=== PATIENT | female | born 1985 | race Caucasian/White ===

== ENCOUNTER 2019-11-19 05:45 | Emergency (ER) | payer SELFPAY ==
[2019-11-19] VITALS (10 sets, daily range): BP systolic 85–139; BP diastolic 56–77; PULSE 80–134; RESP 16–35; TEMP 37.1; O2SAT 93–100; BMI 27.4
--- NOTE | 2019-11-19 05:50 | XR_ITS ---
WS: [id number] Portable AP upright chest, 11/19/2019 Clinical Data: dyspnea Comparison: PA and lateral chest, 09/13/2019. Findings: No nodules, masses or effusions are seen. The heart is normal. The pulmonary vascularity is not increased. No pneumonia or pneumothorax is seen. XR/XR chest 1V portable [id number] Impression: Negative chest.
--- NOTE | 2019-11-19 05:52 | ED_ITS ---
HPI - Asthma General: Chief Complaint: Asthma Stated Complaint: asthma attack Time Seen by Provider: 11/19/19 05:49 History of Present Illness: HPI Narrative: 34-year-old female presents emergency room with acute dyspnea and audible wheezing. Patient reports she ran out of albuterol for the last month she has been using 5-6 treatments per day she last had a treatment about 3 hours prior to presentation. She denies fever sweats or chills patient is tearful and conversationally dyspneic. Associated symptoms: Reports non-productive cough; Deny chest pain, fever(s), productive cough or syncope Review of Systems Const: Denies: fever, chills, body aches, fatigue, malaise or night sweats Eyes: Denies: change in vision or blurry vision ENMT: Denies: throat pain, oral sores/lesions, dental pain, nasal discharge or nasal congestion Card: Denies: chest pain, palpitations, irregular heart rhythm, edema, synco pe, shortness of breath on exertion, shortness of breath when lying down or leg pain with exertion Resp: Reports: shortness of breath, non-productive cough and wheezing; Denies: productive cough GI: Denies: abdominal pain, nausea, vomiting, vomiting blood, coffee grounds in vomit, difficulty swallowing, heartburn/indigestion, diarrhea, constipation, cramping, blood in stool or black tarry stool : Denies: flank pain, painful urination, urinary frequency, urinary urgency, urinary incontinence or blood in urine Musc: Denies: neck pain, back pain, extremity pain, extremity swelling, joint pain or joint swelling Skin/Breast: Denies: rash, itching or redness Neuro: Denies: headache, numbness in extremities, weakness in extremities, changes in sensation, lack of coordination, difficulty walking, frequent falls, dizziness, vertigo or confusion Psych: Reports: anxiety; Denies: depression, loss of interest, visual hallucinations, auditory hallucinations, suicidal ideation or homicidal ideation Endo: Denies: excessive urination, excessive thirst, tired all the time or cold intolerance Fabio/Lymph: Denies: easy bruising, easy bleeding, petechiae, enlarged lymph nodes or tender lymph nodes PFSH ED PFSH: Statuses (acute, chronic, etc) shown below reflect problem list status as previously entered and may not be historically accurate Social History Smoking and tobacco status: former smoker Female Reproductive History: Date of last menstrual period: 11/04/19 Physical Exam Const: COMMON NORMALS: average body habitus, oriented x3 and alert GENERAL APPEARANCE: cooperative, comfortable, well kempt and well developed NUTRITIO NAL APPEARANCE: obese ORIENTATION/CONSCIOUSNESS: Yes awake, Yes oriented to person and Yes oriented to place HENMT: COMMON NORMALS: normocephalic, head/scalp atraumatic, EAC's normal, TM's normal bilaterally, external nose normal, moist oral mucous membranes and oropharynx normal HEAD & SCALP: normocephalic and atraumatic NOSE: external nose normal EXTERNAL AUDITORY CANAL: EAC's normal TYMPANIC MEMBRANE: TM's normal bilaterally MOUTH: oral and palatal mucosa normal, lip normal and tongue normal THROAT: posterior oropharynx normal and tonsils normal Eye: COMMON NORMALS: PERRL, EOMs intact bilaterally, conjunctivae normal and no scleral icterus CONJUNCTIVA: Yes conjunctivae normal PUPIL: Yes PERRL Neck/C-Spine: COMMON NORMALS: full ROM, no lymphadenopathy, supple, no meningeal signs and thyroid normal THYROID: thyroid normal and asymmetrical Lymph: LYMPHATIC: no lymphadenopathy noted Resp: EFFORT & INSPECTION: No able to speak in complete sentences, Yes tachypneic, Yes respiratory distress, Yes grunting and Yes audible wheezes AUSCULTATION: wheezes throughout Cardio: COMMON NORMALS: regular rhythm RATE: tachycardic RHYTHM: regular rhythm HEART SOUNDS: no murmurs GI: COMMON NORMALS: normal to inspection, nondistended, normoactive bowel sounds, soft to palpation and no hepatosplenomegaly PALPATION: Yes soft and Yes no hepatosplenomegaly : COMMON NORMALS: Yes no CVA tenderness BLADDER/KIDNEY EXAM: Yes no CVA tenderness Back/Pelvis: COMMON NORMALS: no CVA tenderness LUMBAR SPINE/LOWER BACK: Yes normal to inspection Extremity: COMMON NORMALS: no clubbing, cyanosis or edema, no calf tenderness and no pedal edema Neuro: COMMON NORMALS: oriented x3 SENSORIUM/ORIENTATION: Yes alert, Yes oriented to person and Yes oriented to place MENINGEAL SIGNS: Yes no meningeal signs Psych: APPEARANCE: Yes well kempt Skin: COMMON NORMALS: no rashes or lesions noted and skin turgor normal GENERAL SKIN EXAM: no rashes or lesions noted and turgor normal Course ED course: Improved with initial treatment in the emergency room we will go ahead and discharge patient home follow-up with primary care doctor in the next few days return if has problems. Did review with the patient that by enlarge she was hyperventilating was causing the worst her symptoms I do think though that her asthma did precipitate the hyperventilation reviewed this with her. Vital Signs: Vital signs: Vital Signs Temperature 98.8 F 11/19/19 06:01 Pulse Rate 85 11/19/19 08:17 Respiratory Rate 16 11/19/19 07:46 Blood Pressure 113/74 11/19/19 07:46 Pulse Oximetry 100 11/19/19 07:46 MDM - Asthma Lab Data: Labs: Lab Results 11/19/19 11/19/19 11/19/19 Range/Units 05:52 05:52 05:53 WBC 8.5 (4.0-10.0) 10^3/ uL RBC 4.60 (4.1-5.3) 10^6/u L Hgb 14.6 (11.5-15.3) g/dL Hct 42.2 (37.0-47.0) % MCV 91.7 (81-99) fL MCH 31.7 (28.0-34.0) pg MCHC 34.6 (30.0-36.0) g/dL RDW 12.4 (12.1-15.1) % Plt Count 277 (130-400) 10^3/c mm MPV 9.9 (7.4-10.4) fL Neut % (Auto) 27.3 % Lymph % (Auto) 59.6 % [place] % (Auto) 6.7 % Eos % (Auto) 5.9 % Baso % (Auto) 0.4 % Neut # (Auto) 2.3 (1.8-7.7) 10^3/u L Lymph # (Auto) 5.1 H (0.8-4.8) 10^3/u L [place] # (Auto) 0.6 (0.2-0.9) 10^3/u L Eos # (Auto) 0.5 (0.0-0.8) 10^3/u L Baso # (Auto) 0.0 (0.0-0.1) 10^3/u L Nucleated RBC % (a uto) 0 % Nucleated RBCs # 0.0 /100WBC Specimen Type Arterial Sample Site Radial, right ABG pH 7.41 (7.35-7.45) ABG pCO2 32.1 L (35-45) mmHg ABG pO2 165.0 H* (80.0-100.0) mmH g ABG HCO3 20.4 L (22-26) mmol/L ABG Base Excess -3.3 L (-2.0-2.0) mmol/ L Kendall Test Pos Hematocrit 41.8 (37-47) % Hgb O2 Saturation 98.5 (95-100) % Carboxyhemoglobin 0.7 (0.4-20.1) %THgb Methemoglobin 0.6 (0.4-1.5) % Total Hemoglobin 13.6 (12-16) g/dL Ionized Calcium 1.2 (1.1-1.4) mmol/L O2 Liters/Min 5.0 % Installation & Maintenance Executive ID [email or web address] Sodium 138 139.0 (136-145) mmol/L Potassium 3.6 4.0 (3.5-5.1) mmol/L Chloride 101 (98-107) mmol/L Carbon Dioxide 21 L (22-29) mmol/L Anion Gap 19.6 H (5-19) BUN 18 (6-20) mg/dL Creatinine 0.7 (0.5-0.9) mg/dL GFR Calculation 95.8 (90-130) mL/min Glucose 149 H 126.0 H (74-109) mg/dL Calcium 10.2 H (8.6-10.0) mg/Dl Total Bilirubin 0.7 (0.15-1.2) mg/dL AST 18 (0-32) U/L ALT 18 (0-33) U/L Alkaline Phosphata se 60 (35-105) IU/L Total Protein 7.6 (6.6-8.7) g/dL Albumin 5.7 H (3.5-5.2) g/dL Globulin 1.9 (1.3-4.6) g/dL Influenza Type A A g (Negative) POC Influenza B Ag (Negative) 11/19/19 Range/Units 06:06 WBC (4.0-10.0) 10^3/ uL RBC (4.1-5.3) 10^6/u L Hgb (11.5-15.3) g/dL Hct (37.0-47.0) % MCV (81-99) fL MCH (28.0-34.0) pg MCHC (30.0-36.0) g/dL RDW (12.1-15.1) % Plt Count (130-400) 10^3/c mm MPV (7.4-10.4) fL Neut % (Auto) % Lymph % (Auto) % [place] % (Auto) % Eos % (Auto) % Baso % (Auto) % Neut # (Auto) (1.8-7.7) 10^3/u L Lymph # (Auto) (0.8-4.8) 10^3/u L [place] # (Auto) (0.2-0.9) 10^3/u L Eos # (Auto) (0.0-0.8) 10^3/u L Baso # (Auto) (0.0-0.1) 10^3/u L Nucleated RBC % (a uto) % Nucleated RBCs # /100WBC Specimen Type Sample Site ABG pH (7.35-7.45) ABG pCO2 (35-45) mmHg ABG pO2 (80.0-100.0) mmH g ABG HCO3 (22-26) mmol/L ABG Base Excess (-2.0-2.0) mmol/ L Kendall Test Hematocrit (37-47) % Hgb O2 Saturation (95-100) % Carboxyhemoglobin (0.4-20.1) %THgb Methemoglobin (0.4-1.5) % Total Hemoglobin (12-16) g/dL Ionized Calcium (1.1-1.4) mmol/L O2 Liters/Min % Installation & Maintenance Executive ID Sodium (136-145) mmol/L Potassium (3.5-5.1) mmol/L Chloride (98-107) mmol/L Carbon Dioxide (22-29) mmol/L Anion Gap (5-19) BUN (6-20) mg/dL Creatinine (0.5-0.9) mg/dL GFR Calculation (90-130) mL/min Glucose (74-109) mg/dL Calcium (8.6-10.0) mg/Dl Total Bilirubin (0.15-1.2) mg/dL AST (0-32) U/L ALT (0-33) U/L Alkaline Phosphata se (35-105) IU/L Total Protein (6.6-8.7) g/dL Albumin (3.5-5.2) g/dL Globulin (1.3-4.6) g/dL Influenza Type A A g Negative (Negative) POC Influenza B Ag Negative (Negative) Imaging Data^: CXR: Attestation: I personally reviewed and interpreted this imaging study as follows: My impression: Mild hyperexpansion normal mediastinum normal cardiac silhouette no acute infiltrates no effusions. ABG Data^: ABG Interpretation 1: ABG results: Mild respiratory alkalosis due to hyperventilation Discharge Plan Discharge Patient Disposition: Home, Self-Care Clinical Impression: Asthma with acute exacerbation Qualifiers: Asthma severity: moderate Asthma persistence: persistent Qualified Code(s): J45.41 - Moderate persistent asthma with (acute) exacerbation Condition: Stable Prescriptions: New prednisone 20 mg tablet 20 mg PO BID 5 Days Qty: 10 RF: 0 Advair Diskus 250-50 mcg/dose blister with device 1 inh INHALATION BID Qty: 60 RF: 1 albuterol sulfate 90 mcg/actuation HFA aerosol inhaler 2 inh INHALATION Q4H PRN (Reason: shortness of breath or wheezing) Qty: 18 RF: 1 Discharge Orders: Discharge Order (Routine); Ordered 11/19/19 Ordered By: Ronald Peterson Referrals: Michelle Hanna MD [Physician] - 4-7 days (asthma) Discharge Diet: Usual diet Discharge Activity: Increase activity as tolerated Discharge Date/Time: 11/19/19 07:47 Coding Level of Care Code ED Steam Tank Operator for Chg Fwd Exam Problem Focused
[2019-11-19] MEDS: magnesium sulfate premix 2 GM/50 ML PIGGYBACK IV (05:53)
[2019-11-19] MEDS: sodium chloride 0.9% 1,000 ML 999 ML IV (05:53)
[2019-11-19 06:03] LABS: Basophils % 0.4 %; Eosinophils # 0.5 10^3/uL (0.0-0.8); Eosinophils % 5.9 %; Hematocrit 42.2 % (37.0-47.0); Hemoglobin 14.6 g/dL (11.5-15.3); Lymphocytes # 5.1 10^3/uL (0.8-4.8); Lymphocytes % 59.6 %; Mean Corpuscular HGB Conc 34.6 g/dL (30.0-36.0); Mean Corpuscular Hemoglobin 31.7 pg (28.0-34.0); Mean Corpuscular Volume 91.7 fL (81-99); Mean Platelet Volume 9.9 fL (7.4-10.4); Monocytes # 0.6 10^3/uL (0.2-0.9); Monocytes % 6.7 %; Neutrophils # 2.3 10^3/uL (1.8-7.7); Neutrophils % 27.3 %; Nucleated Red Blood Cells % 0 %; Platelet Count 277 10^3/cmm (130-400); Red Cell Distribution Width 12.4 % (12.1-15.1); White Blood Count 8.5 10^3/uL (4.0-10.0)
[2019-11-19 06:04] LABS: ABG PCO2 32.1 mmHg (35-45); ABG PH Result 7.41 (7.35-7.45); Arterial Blood Gas Hematocrit 41.8 % (37-47); Base Excess ABG -3.3 mmol/L (-2.0-2.0); Blood Gas Allen Test Pos; Blood Gas Sample Site Radial, right; Blood Gas Sample Type Arterial; Carboxyhemoglobin 0.7 %THgb (0.4-20.1); HCO3 ABG 20.4 mmol/L (22-26); HGB O2 Sat 98.5 % (95-100); Ionized Calcium Level - ABG 1.2 mmol/L (1.1-1.4); Methemoglobin 0.6 % (0.4-1.5); Total Hemoglobin 13.6 g/dL (12-16)
[2019-11-19 06:18] LABS: Alanine Aminotransferase 18 U/L (0-33); Albumin Level 5.7 g/dL (3.5-5.2); Alkaline Phosphatase 60 IU/L (35-105); Anion Gap 19.6 (5-19); Aspartate Amino Transferase 18 U/L (0-32); Blood Urea Nitrogen 18 mg/dL (6-20); Calcium 10.2 mg/Dl (8.6-10.0); Carbon Dioxide 21 mmol/L (22-29); Chloride 101 mmol/L (98-107); Globulin 1.9 g/dL (1.3-4.6); Glomerular Filtration Rate 95.8 mL/min (90-130); Glucose 149 mg/dL (74-109); Potassium 3.6 mmol/L (3.5-5.1); Sodium 138 mmol/L (136-145); Total Bilirubin 0.7 mg/dL (0.15-1.2); Total Protein 7.6 g/dL (6.6-8.7)
[2019-11-19] MEDS: budesonide 0.5 mg/2 mL Neb INHALATION (06:21)
[2019-11-19 06:41] LABS: Influenza A by IFA Negative (Negative); Influenza B by IFA Negative (Negative)
--- NOTE | 2019-11-19 14:16 | DCPLANNER ---
Addendum entered by Jocelyne Bender 11/19/19 14:33: Patient did call case management manager back, stated that she does not have insurance at this time. deli manager mailed patient both of the financial representative applications for the hospital to fill out and turn back in. Patient stated that she would wait and fill out applications to see where she is on the slide before scheduling an appointment with a primary care. deli manager also mailed patient lining caser business card, so if case management manager could help patient in the future. Original Note: deli manager was asked to schedule a follow up appointment for patient with a primary care physician and at [facility]. deli manager called [facility], spoke with Mamie, a follow up appointment is scheduled for Sunday, December 08, 2019 at 1:[address] Hanna. deli manager called patient to speak with patient about getting established with a primary care physician. deli manager was unable to speak with patient at this time, a message was left with a friend to return lining caser phone call.
[2019-11-26 18:32] LABS: Oxygen Device NC
--- NOTE | 2019-12-10 14:26 | DCPLANNER ---
Patient did not attend appointment scheduled for 12.08.19 with [facility].
== END 2019-11-19 07:47 | disposition home or self-care (01) ==
PROVIDERS: Emergency Provider Family Medicine
DX: J45.41 Moderate persistent asthma with (acute) exacerbation (principal); Z87.891 Personal history of nicotine dependence
CPT/HCPCS: 36415; 36600; 71045; 80051; 80053; 82810; 83986; 85025; 87804; 94640; 96360; 96365; 96374; 96375; 99282; J2930; J3475; J7030; J7611; J7626

== ENCOUNTER 2020-04-22 03:06 | Emergency (ER) | payer SELFPAY ==
[2020-04-22] VITALS (14 sets, daily range): BP systolic 111–158; BP diastolic 52–78; PULSE 88–129; RESP 16–28; O2SAT 88–99
--- NOTE | 2020-04-22 03:13 | XR_ITS ---
WS: [id number] PORTABLE CHEST HISTORY: Shortness of breath COMPARISON: 11/19/2019 Lungs are clear and well expanded. No pleural effusion or pneumothorax. Cardiac size: Normal. Mediastinum/Aorta: Normal mediastinum. No osseous abnormality seen. XR/XR chest 1V portable [id number] IMPRESSION: Unremarkable portable chest.
--- NOTE | 2020-04-22 03:17 | W.ED.ASTHMA ---
HPI - Asthma General: Chief Complaint: Asthma Stated Complaint: sob; asthma attack Time Seen by Provider: 04/22/20 03:10 History of Present Illness: HPI Narrative: Yuly is a 34-year-old female who comes in having an asthma attack. History is very limited as the patient is severely short of breath. She states she is used her albuterol several times at home. At this time no further history is obtainable as the patient is in severe distress and necessitates intensive management. Review of Systems General: Reports: ROS unobtainable due to medical condition PFSH ED PFSH: Medical History Asthma Social History Smoking and tobacco status: never smoked Female Reproductive History: Date of last menstrual period: 11/04/19 Physical Exam Const: GENERAL APPEARANCE: in distress and anxious HENMT: COMMON NORMALS: normocephalic, atraumatic, external ears normal, EAC's normal and Normal external nose present HEAD & SCALP: normal to inspection, normocephalic and atraumatic FACE & SINUS: normal facial exam and face symmetric NOSE: Normal external nose present and Normal nares present EXTERNAL EAR: Yes external ears normal EXTERNAL AUDITORY CANAL: EAC's normal MOUTH: Normal oral and palatal mucosa present, lip normal and tongue normal Eye: COMMON NORMALS: Equal, round and reactive pupils present and conjunctivae normal GENERAL EYE: appearance normal, both eyes and all related structures ALIGNMENT: Yes alignment normal PERIORBITAL: periorbital findings normal EYELID: eyelids normal CONJUNCTIVA: Yes conjunctivae normal SCLERA: sclerae normal PUPIL: Yes Equal, round and reactive pupils present Neck/C-Spine: COMMON NORMALS: full ROM, no lymphadenopathy, supple, no meningeal signs and no JVD GENERAL: Yes normal visual inspection and Yes trachea midline Chest: COMMONS NORMALS: normal inspection of the chest and normal palpation of entire chest wall Resp: EFFORT & INSPECTION: Yes tachypneic, Yes respiratory distress, Yes Actively coughing, Yes uses accessory muscles and Yes audible wheezes AUSCULTATION: rhonchi and wheezes Cardio: COMMON NORMALS: no JVD, regular rhythm, S1 normal heart sound present and S2 normal heart sound present RATE: tachycardic RHYTHM: regular rhythm HEART SOUNDS: S1 normal heart sound present, S2 normal heart sound present, no click, no gallops, no murmurs, no rubs and abnormal split S2 GI: COMMON NORMALS: Soft to palpation and No hepatosplenomegaly present PALPATION: Yes Soft to palpation, No Tenderness to palpation present (GI), No Guarding due to palpation present (GI), No Rigid due to palpation, Yes No hepatosplenomegaly present, No Hernia present, No Palpable mass present and No Pulsatile mass present : COMMON NORMALS: Yes no CVA tenderness BLADDER/KIDNEY EXAM: Yes no CVA tenderness EXTERNAL FEMALE EXAM: No Hernia present Back/Pelvis: COMMON NORMALS: no CVA tenderness, thoracic and lumbar spine normal to inspection, no thoracic nor lumbar tenderness and thoraco-lumbar ROM normal Extremity: COMMON NORMALS: normal to inspection, full ROM, capillary refill normal, no joint enlargement, no clubbing, cyanosis or edema and no calf tenderness Neuro: COMMON NORMALS: CN's II-XII intact bilaterally, moves all extremities, no focal motor deficits and no sensory deficits noted MENINGEAL SIGNS: Yes no meningeal signs SPEECH: speech normal Psych: COMMON NORMALS: mental status grossly normal, Normal thought process present, cooperative, normal affect, speech normal and activity/motor behavior normal SPEECH: Yes normal speech THOUGHT PROCESS: Normal thought process present Skin: COMMON NORMALS: no rashes or lesions noted, turgor normal, no jaundice, no petechiae and no mottling GENERAL SKIN EXAM: no rashes or lesions noted and turgor normal Course Vital Signs: Vital signs: Vital Signs Pulse Rate 106 H 04/22/20 05:27 Respiratory Rate 20 H 04/22/20 05:24 Blood Pressure 125/66 04/22/20 05:00 Pulse Oximetry 97 04/22/20 05:24 MDM - Asthma MDM Narrative: Medical decision making narrative: Ms. Riojas is feeling better at this time. Her wheezing has subsided. She is not on any supplemental oxygen. There is no more respiratory distress. She is requesting to go home. She agrees to return should her symptoms change or worsen but at this time she is feeling better ready for discharge. Lab Data: Attestation: I reviewed the patient's lab results. Labs: Lab Results 04/22/20 04/22/20 Range/Units 03:20 03:20 WBC 7.3 (4.0-10.0) 10^3/ uL RBC 4.24 (4.1-5.3) 10^6/u L Hgb 13.4 (11.5-15.3) g/dL Hct 40.6 (37.0-47.0) % MCV 95.8 (81-99) fL MCH 31.6 (28.0-34.0) pg MCHC 33.0 (30.0-36.0) g/dL RDW 12.8 (12.1-15.1) % Plt Count 248 (130-400) 10^3/c mm MPV 10.0 (7.4-10.4) fL Neut % (Auto) 39.6 % Lymph % (Auto) 44.8 % [place] % (Auto) 6.0 % Eos % (Auto) 9.0 % Baso % (Auto) 0.5 % Neut # (Auto) 2.9 (1.8-7.7) 10^3/u L Lymph # (Auto) 3.3 (0.8-4.8) 10^3/u L [place] # (Auto) 0.4 (0.2-0.9) 10^3/u L Eos # (Auto) 0.7 (0.0-0.8) 10^3/u L Baso # (Auto) 0.0 (0.0-0.1) 10^3/u L Nucleated RBC % (a uto) 0 % Nucleated RBCs # 0.0 /100WBC Sodium 140 (136-145) mmol/L Potassium 3.5 (3.5-5.1) mmol/L Chloride 104 (98-107) mmol/L Carbon Dioxide 22 (22-29) mmol/L Anion Gap 17.5 (5-19) BUN 12 (6-20) mg/dL Creatinine 0.6 (0.5-0.9) mg/dL GFR Calculation 114.4 (90-130) mL/min Glucose 164 H (65-115) mg/dL Calculated Osmolal ity 290 (285-295) mOsm/k g Calcium 9.0 (8.5-10.5) mg/dL Total Bilirubin 0.2 (0.15-1.2) mg/dL AST 18 (0-32) U/L ALT 18 (0-33) U/L Alkaline Phosphata se 52 (35-105) IU/L Total Protein 7.4 (6.6-8.7) g/dL Albumin 4.4 (3.5-5.2) g/dL Globulin 3.0 (1.3-4.6) g/dL Imaging Data^: CXR: My impression: No acute cardiopulmonary findings. Discharge Plan Discharge Patient Disposition: Home, Self-Care Clinical Impression: Asthma with acute exacerbation Qualifiers: Asthma severity: moderate Asthma persistence: persistent Qualified Code(s): J45.41 - Moderate persistent asthma with (acute) exacerbation Condition: Stable Prescriptions: New prednisone 10 mg tablet 20 mg PO TID 5 Days Qty: 30 RF: 0 Zithromax Z-Carlitos 250 mg tablet See Rx Instructions .ROUTE .COMPLEX Qty: 6 RF: 0 albuterol sulfate 90 mcg/actuation HFA aerosol inhaler 2 inh INHALATION Q4H PRN (Reason: shortness of breath or wheezing) Qty: 6.7 RF: 0 No Action Advair Diskus 250-50 mcg/dose blister with device 1 inh INHALATION BID Qty: 60 RF: 1 albuterol sulfate 90 mcg/actuation HFA aerosol inhaler 2 inh INHALATION Q4H PRN (Reason: shortness of breath or wheezing) Qty: 18 RF: 1 Discharge Orders: Discharge Order (Routine); Ordered 04/22/20 Ordered By: Brenda Cm Referrals: Delma Kay DO [Physician] - Discharge Diet: Advance as tolerated Discharge Activity: Resume usual activity Patient Instructions: Asthma Exacerbation - Adult, Bronchospasm (ED) Activity Restrictions/Additional Instructions: Please return to the ER immediately for any of the signs or symptoms listed on your discharge instruction sheets, worsening/changing of your symptoms, you are not getting better as quickly as expected, or for ANY other cause or concerns. Coding Level of Care Code ED Psychologist Chief for Timoteog Fwd Exam Comprehensive
[2020-04-22] MEDS: ipratropium-albuterol 3 mL Neb 9 ML INHALATION (03:18)
[2020-04-22 03:35] LABS: Basophils % 0.5 %; Eosinophils # 0.7 10^3/uL (0.0-0.8); Hematocrit 40.6 % (37.0-47.0); Hemoglobin 13.4 g/dL (11.5-15.3); Lymphocytes # 3.3 10^3/uL (0.8-4.8); Lymphocytes % 44.8 %; Mean Corpuscular Hemoglobin 31.6 pg (28.0-34.0); Mean Corpuscular Volume 95.8 fL (81-99); Monocytes # 0.4 10^3/uL (0.2-0.9); Neutrophils # 2.9 10^3/uL (1.8-7.7); Neutrophils % 39.6 %; Nucleated Red Blood Cells % 0 %; Platelet Count 248 10^3/cmm (130-400); Red Blood Count 4.24 10^6/uL (4.1-5.3); Red Cell Distribution Width 12.8 % (12.1-15.1); White Blood Count 7.3 10^3/uL (4.0-10.0)
[2020-04-22] MEDS: magnesium sulfate premix 2 GM/50 ML PIGGYBACK IV (03:36)
[2020-04-22] MEDS: sodium chloride 0.9% 1,000 ML 999 ML IV ×2 (03:37→05:25)
[2020-04-22 03:48] LABS: Alanine Aminotransferase 18 U/L (0-33); Albumin Level 4.4 g/dL (3.5-5.2); Alkaline Phosphatase 52 IU/L (35-105); Anion Gap 17.5 (5-19); Aspartate Amino Transferase 18 U/L (0-32); Blood Urea Nitrogen 12 mg/dL (6-20); Carbon Dioxide 22 mmol/L (22-29); Chloride 104 mmol/L (98-107); Glomerular Filtration Rate 114.4 mL/min (90-130); Glucose 164 mg/dL (65-115); Osmolality Calculated 290 mOsm/kg (285-295); Potassium 3.5 mmol/L (3.5-5.1); Sodium 140 mmol/L (136-145); Total Bilirubin 0.2 mg/dL (0.15-1.2); Total Protein 7.4 g/dL (6.6-8.7)
== END 2020-04-22 06:00 | disposition home or self-care (01) ==
PROVIDERS: Emergency Provider Emergency Medicine
DX: J45.41 Moderate persistent asthma with (acute) exacerbation (principal)
CPT/HCPCS: 12345; 71045; 80053; 85025; 94640; 96361; 96365; 96375; 99283; 99284; J2930; J3475; J7030; J7611

== ENCOUNTER 2020-09-05 10:50 | Emergency (ER) | payer SELFPAY ==
[2020-09-05 11:00] VITALS: BP 115/83; PULSE 76; RESP 22; TEMP 36.3; O2SAT 97; BMI 25.0
--- NOTE | 2020-09-05 11:02 | ED_ITS ---
HPI - Asthma General: Chief Complaint: Asthma Stated Complaint: Asthma symptoms Time Seen by Provider: 09/05/20 10:55 Source: patient Mode of arrival: ambulatory Limitations: no limitations History of Present Illness: HPI Narrative: 35-year-old female who states she has been having shortness of breath of the last 1 to 2 days. She is a long history of asthma and states she was has asthma attacks at this time of the year. States that she feels tight and has had increased wheezing. She had a dry cough. Denies any vomiting or diarrhea. Denies any worsening or improving factors. MD complaint: asthma attack Associated symptoms: Reports non-productive cough; Deny chest pain or fever(s) Review of Systems Const: Denies: fever(s), chills, body aches or change in appetite Eyes: Denies: blurry vision or eye discomfort ENMT: Denies: throat pain or dental pain Card: Denies: chest pain Resp: Reports: dyspnea, non-productive cough and wheezing GI: Denies: abdominal pain, nausea, vomiting or diarrhea : Denies: dysuria Musc: Denies: neck pain or back pain Skin/Breast: Denies: rash Neuro: Denies: headache(s) Psych: Denies: depression Fabio/Lymph: Denies: easy bruising All/Imm: Denies: urticaria PFSH ED PFSH: Medical History (Updated 09/05/20 @ 12:02 by Ava Chinchilla MD) Asthma Social History Smoking and tobacco status: never smoked Female Reproductive History: Date of last menstrual period: 11/04/19 Physical Exam Const: COMMON NORMALS: no acute distress, patient oriented x3 and healthy appearing HENMT: COMMON NORMALS: normocephalic and atraumatic HEAD & SCALP: normocephalic and atraumatic Eye: COMMON NORMALS: Equal, round and reactive pupils present and EOMs intact bilaterally PUPIL: Yes Equal, round and reactive pupils present Neck/C-Spine: COMMON NORMALS: full ROM and supple Chest: COMMONS NORMALS: normal inspection of the chest and normal palpation of entire chest wall Resp: COMMON NORMALS: normal respiratory effort, No retractions, No use of accessory muscles and clear to auscultation bilaterally AUSCULTATION: clear to auscultation bilaterally and wheezes Cardio: COMMON NORMALS: regular rate, regular rhythm and No murmurs present (Cardio) RATE: regular rate RHYTHM: regular rhythm GI: COMMON NORMALS: Normal to inspection, nondistended, normoactive bowel sounds present, Soft to palpation, non-tender and no masses PALPATION: Yes Soft to palpation Extremity: COMMON NORMALS: normal to inspection and full ROM Neuro: COMMON NORMALS: patient oriented x3, moves all extremities and no focal motor deficits Psych: COMMON NORMALS: mental status grossly normal, Normal thought process present and cooperative THOUGHT PROCESS: Normal thought process present Skin: COMMON NORMALS: no rashes or lesions noted and no wounds GENERAL SKIN EXAM: no rashes or lesions noted Course Vital Signs: Vital signs: Vital Signs Temperature 97.3 F L 09/05/20 11:00 Pulse Rate 72 09/05/20 11:31 Respiratory Rate 20 H 09/05/20 11:31 Blood Pressure 105/73 09/05/20 11:31 Pulse Oximetry 98 09/05/20 11:31 MDM - Asthma MDM Narrative: Medical decision making narrative: Patient presents here with asthma exacerbation and feels much improved here. Will prescribe her inhaler along with steroids. She has no signs of pneumonia. No signs of pulmonary embolism. She is stable for discharge and is to follow-up PCP and return if worsening. Imaging Data^: CXR: Attestation: I personally reviewed and interpreted this imaging study as follows: My impression: no acute abnormality Discharge Plan Discharge Patient Disposition: Home Clinical Impression: Asthma with acute exacerbation Qualifiers: Asthma severity: unspecified severity Asthma persistence: unspecified Qualified Code(s): J45.901 - Unspecified asthma with (acute) exacerbation Condition: Stable Prescriptions: New prednisone 50 mg tablet 50 mg PO DAILY Qty: 5 RF: 0 albuterol sulfate 90 mcg/actuation HFA aerosol inhaler 2 inh INHALATION Q6H PRN (Reason: shortness of breath or wheezing) Qty: 8 RF: 1 No Action Advair Diskus 250-50 mcg/dose blister with device 1 inh INHALATION BID Qty: 60 RF: 1 albuterol sulfate 90 mcg/actuation HFA aerosol inhaler 2 inh INHALATION Q4H PRN (Reason: shortness of breath or wheezing) Qty: 18 RF: 1 Zithromax Z-Carlitos 250 mg tablet See Rx Instructions .ROUTE .COMPLEX Qty: 6 RF: 0 albuterol sulfate 90 mcg/actuation HFA aerosol inhaler 2 inh INHALATION Q4H PRN (Reason: shortness of breath or wheezing) Qty: 6.7 RF: 0 Discharge Orders: Discharge Order (Routine); Ordered 09/05/20 Ordered By: Ava Chinchilla Discharge Diet: Advance as tolerated Discharge Activity: Resume usual activity Patient Instructions: Asthma (ED) Coding Level of Care Code ED Senior Application Programmer for Margot Fwd Exam Comprehensive
[2020-09-05] MEDS: ipratropium-albuterol 3 mL Neb INHALATION (11:08)
[2020-09-05 11:09] VITALS: PULSE 84; RESP 30; O2SAT 97
[2020-09-05 11:15] VITALS: PULSE 80
[2020-09-05] MEDS: LORazepam 1 mg Tablet PO (11:29)
[2020-09-05] MEDS: predniSONE 20 mg Tablet 60 MG PO (11:29)
[2020-09-05 11:31] VITALS: BP 105/73; PULSE 72; RESP 20; O2SAT 98
--- NOTE | 2020-09-05 11:32 | XR_ITS ---
WS: [id number] Exam: XR chest 1V portable [id number] Date/Time of Exam: 09/05/2020 11:32 AM Comparison 04/22/2020 Reason For Exam: wheezing Findings: The lungs are clear and fully expanded. Costophrenic angles are sharp. No infiltrates. Bronchovascula r relief appears normal. Cardiac silhouette is unremarkable. Bony elements are intact. XR/XR chest 1V portable [id number] IMPRESSION: Unremarkable chest radiograph.
[2020-09-05 12:14] VITALS: BP 117/76; PULSE 84; RESP 84; O2SAT 97
== END 2020-09-05 12:12 | disposition home or self-care (01) ==
PROVIDERS: Emergency Provider Emergency Medicine
DX: J45.901 Unspecified asthma with (acute) exacerbation (principal)
CPT/HCPCS: 12345; 71045; 94640; 99281; 99283; J7512; J7611

== ENCOUNTER 2021-02-24 03:21 | Emergency (ER) | payer SELFPAY ==
--- NOTE | 2021-02-24 03:22 | XR_ITS ---
WS: [id number] Portable AP upright chest, 02/24/2021 Clinical Data: sob Comparison: Portable chest, 09/05/2020. Findings: No nodules, masses or effusions are seen. The heart is normal. The pulmonary vascularity is not increased. No pneumonia or pneumothorax is seen. XR/XR chest 1V portable [id number] Impression: Negative chest.
[2021-02-24 03:25] VITALS: BP 126/49; PULSE 88; RESP 24; TEMP 36.4; O2SAT 92; BMI 26.6
--- NOTE | 2021-02-24 03:33 | W.ED.SOB ---
HPI - SOB/Dyspnea General: Chief Complaint: Shortness of Breath/Dyspnea Stated Complaint: asthma attack Time Seen by Provider: 02/24/21 03:22 Source: patient Mode of arrival: ambulatory Limitations: no limitations History of Present Illness: HPI Narrative: 85-year-old female has a history of asthma states she had increased breathing throughout the night. States she has had wheezing along with nonproductive cough. States she has asthma attacks every time this year due to allergens. She states she ran out of her inhaler and did not have any rescue device. She does have audible wheezing in some distress along with tachypnea. She denies any fever. She denies any pain anywhere. MD elicited complaint: shortness of breath Associated symptoms: Deny abdominal pain, chest pain, fever(s), nausea or vomiting Review of Systems Const: Denies: fever(s), chills, body aches or change in appetite Eyes: Denies: blurry vision or eye discomfort ENMT: Denies: throat pain or dental pain Card: Denies: chest pain Resp: Reports: dyspnea, non-productive cough and wheezing GI: Denies: abdominal pain, nausea, vomiting or diarrhea : Denies: dysuria Musc: Denies: neck pain or back pain Skin/Breast: Denies: rash Neuro: Denies: headache(s) Psych: Denies: depression Fabio/Lymph: Denies: easy bruising All/Imm: Denies: urticaria PFS ED PFSH: Medical History (Updated 02/24/21 @ 03:54 by Ava Chinchilla MD) Asthma Social History Smoking and tobacco status: never smoked Female Reproductive History: Date of last menstrual period: 11/04/19 Physical Exam Const: COMMON NORMALS: no acute distress, patient oriented x3 and healthy appearing HENMT: COMMON NORMALS: normocephalic and atraumatic HEAD & SCALP: normocephalic and atraumatic Eye: COMMON NORMALS: Equal, round and reactive pupils present and EOMs intact bilaterally PUPIL: Yes Equal, round and reactive pupils present Neck/C-Spine: COMMON NORMALS: full ROM and supple Chest: COMMONS NORMALS: normal inspection of the chest and normal palpation of entire chest wall Resp: COMMON NORMALS: No retractions and No use of accessory muscles EFFORT & INSPECTION: Yes tachypneic AUSCULTATION: wheezes Cardio: COMMON NORMALS: regular rate, regular rhythm and No murmurs present (Cardio) RATE: regular rate RHYTHM: regular rhythm GI: COMMON NORMALS: Normal to inspection, nondistended, normoactive bowel sounds present, Soft to palpation, non-tender and no masses PALPATION: Yes Soft to palpation Extremity: COMMON NORMALS: normal to inspection and full ROM Neuro: COMMON NORMALS: patient oriented x3, moves all extremities and no focal motor deficits Psych: COMMON NORMALS: mental status grossly normal, Normal thought process present and cooperative THOUGHT PROCESS: Normal thought process present Skin: COMMON NORMALS: no rashes or lesions noted and no wounds GENERAL SKIN EXAM: no rashes or lesions noted Course Vital Signs: Vital signs: Vital Signs Temperature 97.6 F 02/24/21 03:25 Pulse Rate 94 02/24/21 03:44 Respiratory Rate 19 H 02/24/21 03:37 Blood Pressure 126/49 02/24/21 03:25 Pulse Oximetry 93 02/24/21 03:37 MDM - SOB/Dyspnea MDM Narrative: Medical decision making narrative: Patient presents here with asthma exacerbation. She is much improved here after breathing treatments. Will prescribe her an inhaler along with nebs and steroids for home. X-ray shows no pneumonia. She has no signs of pulmonary embolism. She is to follow-up PCP and return if worsening. Imaging Data^: CXR: Attestation: I personally reviewed and interpreted this imaging study as follows: My impression: no acute abnormality Discharge Plan Discharge Patient Disposition: Home Clinical Impression: Asthma with exacerbation Qualifiers: Asthma severity: unspecified severity Asthma persistence: unspecified Qualified Code(s): J45.901 - Unspecified asthma with (acute) exacerbation Condition: Stable Prescriptions: New albuterol sulfate 2.5 mg /3 mL (0.083 %) solution for nebulization 2.5 mg INHALATION Q4H PRN (Reason: shortness of breath or wheezing) Qty: 90 RF: 0 prednisone 50 mg tablet 50 mg PO DAILY Qty: 5 RF: 0 albuterol sulfate 90 mcg/actuation HFA aerosol inhaler 2 inh INHALATION Q6H PRN (Reason: shortness of breath or wheezing) Qty: 8 RF: 0 No Action Advair Diskus 250-50 mcg/dose blister with device 1 inh INHALATION BID Qty: 60 RF: 1 albuterol sulfate 90 mcg/actuation HFA aerosol inhaler 2 inh INHALATION Q4H PRN (Reason: shortness of breath or wheezing) Qty: 18 RF: 1 Zithromax Z-Carlitos 250 mg tablet See Rx Instructions .ROUTE .COMPLEX Qty: 6 RF: 0 albuterol sulfate 90 mcg/actuation HFA aerosol inhaler 2 inh INHALATION Q4H PRN (Reason: shortness of breath or wheezing) Qty: 6.7 RF: 0 prednisone 50 mg tablet 50 mg PO DAILY Qty: 5 RF: 0 albuterol sulfate 90 mcg/actuation HFA aerosol inhaler 2 inh INHALATION Q6H PRN (Reason: shortness of breath or wheezing) Qty: 8 RF: 1 Discharge Orders: Discharge ED (Routine); Ordered 02/24/21 Ordered By: Ava Chinchilla Discharge Diet: Advance as tolerated Discharge Activity: Resume usual activity Patient Instructions: Asthma Exacerbation - Adult Coding Level of Care Code ED Dental Hygienist for Margot Fwd Exam Comprehensive
[2021-02-24 03:37] VITALS: PULSE 89; RESP 19; O2SAT 93
[2021-02-24] MEDS: ipratropium-albuterol 3 mL Neb INHALATION (03:39)
[2021-02-24 03:44] VITALS: PULSE 94
[2021-02-24 04:15] VITALS: PULSE 93; RESP 18; O2SAT 95
[2021-02-24] MEDS: albuterol 8 gm MDI 2 PUFF INHALATION (04:17)
[2021-02-24 04:20] VITALS: PULSE 95
[2021-02-24 04:31] VITALS: BP 123/58; PULSE 106; RESP 18; O2SAT 94
== END 2021-02-24 04:33 | disposition home or self-care (01) ==
PROVIDERS: Emergency Provider Emergency Medicine
DX: J45.901 Unspecified asthma with (acute) exacerbation (principal)
CPT/HCPCS: 71045; 94640; 96374; 99284; J2930; J3535; J7611

== ENCOUNTER → 2021-06-13 11:14 | Outpatient (BNVA) | payer SELFPAY | PROVIDERS: PCP Family Medicine; Visit Provider Family Medicine | DX: J45.40 Moderate persistent asthma, uncomplicated (principal); N94.6 Dysmenorrhea, unspecified; R10.2 Pelvic and perineal pain; J45.909 Unspecified asthma, uncomplicated; M25.571 Pain in right ankle and joints of right foot; S99.911A Unspecified injury of right ankle, initial encounter; X58.XXXA Exposure to other specified factors, initial encounter | CPT/HCPCS: 73600; 80053; 85025 ==

== ENCOUNTER → 2021-06-20 14:32 | Outpatient (BNVA) | payer SELFPAY | PROVIDERS: PCP Family Medicine; Visit Provider Family Medicine | DX: R10.2 Pelvic and perineal pain (principal) | CPT/HCPCS: 87491; 87591; 87661; 88175 ==

== ENCOUNTER → 2021-08-03 16:08 | Outpatient (BNVA) | payer SELFPAY | PROVIDERS: PCP Family Medicine; Referring Provider Family Medicine; Visit Provider Obstetrics & Gynecology | DX: R87.619 Unspecified abnormal cytological findings in specimens from cervix uteri (principal); N92.0 Excessive and frequent menstruation with regular cycle | CPT/HCPCS: 84443; 85025; 88305 ==

== ENCOUNTER 2021-08-22 14:14 | Emergency (ER) | payer SELFPAY ==
--- NOTE | 2021-08-22 14:30 | XR_ITS ---
WS: [id number] PORTABLE CHEST HISTORY: dyspnea/cough COMPARISON: 02/24/2021 Lungs are clear and well expanded. No pleural effusion or pneumothorax. Cardiac size: Normal. Mediastinum/Aorta: Normal mediastinum. No osseous abnormality seen. XR/XR chest 1V portable [id number] IMPRESSION: Unremarkable portable chest.
[2021-08-22 14:33] VITALS: BP 145/99; PULSE 98; RESP 33; TEMP 36.8; O2SAT 100; BMI 26.6
[2021-08-22 14:33] LABS: ABG PCO2 20.5 mmHg (35-45); Alveolar-Arterial Oxygen Gradi 24.5 mmHg (5-10); Arterial Blood Gas Hematocrit 42.5 % (37-47); Base Excess ABG -1.1 mmol/L (-2.0-2.0); Blood Gas Operator Identificat ED; Blood Gas Sample Site Brachial, right; Blood Gas Sample Type Arterial; Carboxyhemoglobin 0.6 %THgb (0.4-20.1); HCO3 ABG 18.8 mmol/L (22-26); HGB O2 Sat 99.5 % (95-100); Ionized Calcium Level - ABG 1.2 mmol/L (1.1-1.4); Methemoglobin 0.7 % (0.4-1.5); Oxygen Device NRB; Oxygen Saturation ABG > 100.0; Potassium Level - ABG 3.6 mmol/L (3.5-5.0); Total Hemoglobin 13.9 g/dL (12-16)
[2021-08-22 14:34] LABS: ABG PH Result 7.57 (7.35-7.45)
--- NOTE | 2021-08-22 14:35 | W.ED.SOB ---
HPI - SOB/Dyspnea General: Chief Complaint: Asthma Stated Complaint: Respiratory Distress Time Seen by Provider: 08/22/21 14:25 History of Present Illness: HPI Narrative: 36-year-old female comes in with complaint of asthma. On arrival here she is hyperventilating and shaking. She is brought back to the room staff initially was concerned she might be having a seizure. I was called to the room emergently on arrival patient is awake she is has purposeful eye movements and intentionally repositions herself in the bed using her arms. She follows simple commands such as opening her eyes to look at me. She states she feels very short of breath. Patient is seen in initially she is hyperventilating. When patient is seen initially she is hyperventilating. MD elicited complaint: shortness of breath and cough Pertinent past history: asthma Onset (ago): day(s) Context: recent illness Timing: intermittent Severity: moderate Exacerbating factors: coughing and other (Stress) Relieving factors: nothing Associated symptoms: Deny abdominal pain, chest congestion, chest pain, cough, diaphoresis, dizziness, extremity pain, fever(s), hemoptysis, lightheadedness, myalgias, nausea, orthopnea, palpitations, paresthesias, polydipsia, polyuria, rash, sense of impending doom, syncope or vomiting Treatment prior to arrival: none Review of Systems Const: Denies: fever(s) or diaphoresis ENMT: Denies: throat pain, ear or mastoid pain, nasal discharge or nasal congestion Card: Denies: chest pain, palpitations, lightheadedness, syncope or orthopnea Resp: Denies: hemoptysis or chest congestion GI: Denies: abdominal pain, nausea or vomiting : Denies: flank pain, difficulty voiding, dysuria, urinary frequency or urinary urgency Musc: Denies: extremity pain Skin/Breast: Denies: rash or pruritus Neuro: Denies: dizziness Endo: Denies: polyuria or polydipsia PFSH ED PFSH: Family History Other CAD (coronary artery disease) Cancer Hyperlipidemia Hypertension Psychiatric illness Stroke Denies family history of Diabetes Clotting disorder Dementia Chronic kidney disease (CKD) Suicide Anesthesia complication Bleeding disorder Lung disease Social History Smoking and tobacco status: never smoked Second hand smoke exposure: No Alcohol intake: never Desire information about alcohol rehabilitation?: No Desire information about substance/drug rehabilitation?: No Female Reproductive History: Date of last menstrual period: 11/04/19 Physical Exam Const: COMMON NORMALS: no acute distress GENERAL APPEARANCE: cooperative and comfortable ORIENTATION/CONSCIOUSNESS: Yes awake, Yes oriented to person, Yes oriented to place and Yes oriented to time HENMT: COMMON NORMALS: normocephalic, atraumatic, hearing grossly normal bilaterally and external ears normal HEAD & SCALP: normocephalic and atraumatic EXTERNAL EAR: Yes external ears normal Resp: COMMON NORMALS: clear to auscultation bilaterally EFFORT & INSPECTION: No able to speak in complete sentences and Yes tachypneic AUSCULTATION: clear to auscultation bilaterally Cardio: COMMON NORMALS: regular rhythm and No murmurs present (Cardio) RATE: tachycardic RHYTHM: regular rhythm GI: COMMON NORMALS: Soft to palpation and No hepatosplenomegaly present AUSCULTATION: Yes normoactive bowel sounds PALPATION: Yes Soft to palpation, No Tenderness to palpation present (GI), No Guarding due to palpation present (GI) and Yes No hepatosplenomegaly present Extremity: COMMON NORMALS: normal to inspection, capillary refill normal, no clubbing, cyanosis or edema, no calf tenderness and no pedal edema Neuro: SENSORIUM/ORIENTATION: Yes oriented to person, Yes oriented to place and Yes oriented to time Skin: COMMON NORMALS: no rashes or lesions noted GENERAL SKIN EXAM: no rashes or lesions noted Course Vital Signs: Vital signs: Vital Signs Temperature 98.3 F 08/22/21 14:56 Pulse Rate 71 08/22/21 14:56 Respiratory Rate 18 08/22/21 14:56 Blood Pressure 145/99 08/22/21 14:56 Pulse Oximetry 100 08/22/21 14:56 MDM - SOB/Dyspnea MDM Narrative: Medical decision making narrative: Labs and imaging reviewed as on the chart. Chest x-ray is normal labs unremarkable ABG shows clear respiratory alkalosis from hyperventilation which was clinically what was apparent when the patient arrived. Had a discussion with the patient and family member at the bedside after talking to her some believe she has been having anxiety attacks which she perceives as asthma issues and she has been taking prednisone and albuterol for which I think is exacerbating the matter. Patient is pursuing having a hysterectomy done and is extremely anxious about it which seems to have precipitated these episodes. Order to get her started on low-dose sertraline and hydroxyzine to use as needed encouraged to follow-up with her primary care doctor within the next 7 to 10 days. Lab Data: Labs: Lab Results 08/22/21 08/22/21 08/22/21 14:23 15:10 15:10 WBC 8.1 10^3/uL 10^3/ uL (4.0-10.0) RBC 4.46 10^6/uL 10^6 /uL (4.1-5.3) Hgb 14.5 g/dL g/dL (11.5-15.3) Hct 41.1 % % (37.0-47.0) MCV 92.2 fl fl (81-99) MCH 32.5 pg pg (28.0-34.0) MCHC 35.3 g/dL g/dL (30.0-36.0) RDW 11.9 % L % (12.1-15.1) Plt Count 289 10^3/cmm 10^3 /cmm (130-400) MPV 10.1 fL fL (7.4-10.4) Neut % (Auto) 28.2 % % Lymph % (Auto) 62.6 % % [place] % (Auto) 4.8 % % Eos % (Auto) 3.7 % % Baso % (Auto) 0.6 % % Neut # (Auto) 2.27 10^3/uL 10^3 /uL (1.8-7.7) Lymph # (Auto) 5.1 10^3/uL H 10^ 3/uL (0.8-4.8) [place] # (Auto) 0.4 10^3/uL 10^3/ uL (0.2-0.9) Eos # (Auto) 0.3 10^3/uL 10^3/ uL (0.0-0.8) Baso # (Auto) 0.1 10^3/uL 10^3/ uL (0.0-0.1) Nucleated RBC % (a uto) 0 % % Nucleated RBCs # 0.0 /100WBC /100W BC Specimen Type Arterial Sample Site Brachial, right ABG pH 7.57 H* (7.35-7.45) ABG pCO2 20.5 mmHg L mmHg (35-45) ABG pO2 483.0 mmHg H mmHg (80.0-100.0) ABG HCO3 18.8 mmol/L L mmo l/L (22-26) ABG O2 Saturation > 100.0 ABG Base Excess -1.1 mmol/L mmol/ L (-2.0-2.0) Kendall Test N/a A-a O2 Gradient 24.5 mmHg H mmHg (5-10) Hematocrit 42.5 % % (37-47) Hgb O2 Saturation 99.5 % % (95-100) Carboxyhemoglobin 0.6 %THgb %THgb (0.4-20.1) Methemoglobin 0.7 % % (0.4-1.5) Total Hemoglobin 13.9 g/dL g/dL (12-16) Sodium 141.0 mmol/L mmol /L (131-143) Potassium 3.6 mmol/L mmol/L (3.5-5.0) Glucose 105.0 mg/dL mg/dL (70-115) Ionized Calcium 1.2 mmol/L mmol/L (1.1-1.4) O2 Delivery Device Nrb O2 Liters/Min 15.0 % % FiO2 100.0 % % [place] ID Ed Urine Color Yellow (Yellow) Urine Appearance Clear (CLEAR) Urine pH 5 (5-7) Ur Specific Gravit y 1.025 (1.005-1.030) Urine Protein Neg (Negative) Urine Glucose (UA) Norm (Normal) Urine Ketones Negative (Negative) Urine Blood 2+ H (Negative) Urine Nitrate Negative (Negative) Urine Bilirubin Neg (Negative) Urine Urobilinogen Norm mg/dL mg/dL (Negative) Ur Leukocyte Miriam ase Negative (Negative) Discharge Plan Discharge Patient Disposition: Home Clinical Impression: Hyperventilation, Anxiety, History of asthma Condition: Stable Prescriptions: New hydroxyzine HCl 25 mg tablet 25 mg PO Q6H PRN (Reason: anxiety) Qty: 20 RF: 0 sertraline 50 mg tablet 25 mg PO DAILY Qty: 20 RF: 0 No Action prednisone 50 mg tablet 50 mg PO DAILY PRNRF: 0 albuterol sulfate 2.5 mg /3 mL (0.083 %) solution for nebulization 2.5 mg INHALATION Q4H PRN (Reason: shortness of breath or wheezing) Qty: 90 RF: 0 Discharge Orders: Discharge ED (Routine); Ordered 08/22/21 Ordered By: Ronald Peterson Referrals: Wayne Sauer DO [Primary Care Provider] - Patient Instructions: Opioid Safety Activity Restrictions/Additional Instructions: Follow-up with your primary care doctor within the next 7 to 10 days. Coding Level of Care Code ED Bilingual Legal Assistant for Chg Fwd Exam Comprehensive
[2021-08-22 14:50] VITALS: PULSE 81; RESP 18; O2SAT 100
[2021-08-22] MEDS: ipratropium-albuterol 3 mL Neb INHALATION (14:50)
[2021-08-22 14:56] VITALS: BP 145/99; PULSE 71; PULSE 92; RESP 18; TEMP 36.8; O2SAT 100
[2021-08-22 15:52] LABS: Basophils # 0.1 10^3/uL (0.0-0.1); Basophils % 0.6 %; Eosinophils # 0.3 10^3/uL (0.0-0.8); Eosinophils % 3.7 %; Hematocrit 41.1 % (37.0-47.0); Hemoglobin 14.5 g/dL (11.5-15.3); Lymphocytes # 5.1 10^3/uL (0.8-4.8); Lymphocytes % 62.6 %; Mean Corpuscular HGB Conc 35.3 g/dL (30.0-36.0); Mean Corpuscular Hemoglobin 32.5 pg (28.0-34.0); Mean Corpuscular Volume 92.2 fl (81-99); Mean Platelet Volume 10.1 fL (7.4-10.4); Monocytes # 0.4 10^3/uL (0.2-0.9); Monocytes % 4.8 %; Neutrophils # 2.27 10^3/uL (1.8-7.7); Neutrophils % 28.2 %; Nucleated Red Blood Cells % 0 %; Platelet Count 289 10^3/cmm (130-400); Red Blood Count 4.46 10^6/uL (4.1-5.3); Red Cell Distribution Width 11.9 % (12.1-15.1); White Blood Count 8.1 10^3/uL (4.0-10.0)
[2021-08-22] MEDS: LORazepam 2 mg/mL INJ 1 mL 1 MG IVP (16:05)
[2021-08-22 16:22] LABS: Add Urine Microscopic? YES; Bilirubin Urine Neg (Negative); Blood Urine 2+ (Negative); Glucose Urine UA Norm (Normal); Ketones Urine Negative (Negative); Leukocyte Esterase Urine Negative (Negative); Nitrate Urine Negative (Negative); Protein Urine Neg (Negative); Specific Gravity, Urine 1.025 (1.005-1.030); Urine Appearance Clear (CLEAR); Urine Color Yellow (Yellow); Urobilinogen Urine Norm (Negative); pH Urine 5 (5-7)
[2021-08-22 16:25] LABS: Anion Gap 21.1 (5-19); Blood Urea Nitrogen 21 mg/dL (6-20); Calcium 9.8 mg/dL (8.5-10.5); Carbon Dioxide 20 mmol/L (22-29); Chloride 102 mmol/L (98-107); Creatinine Clr Calc Pharmacy 97.0405; Glomerular Filtration Rate 81.2 mL/min (90-130); Glucose 97 mg/dL (65-115); Osmolality Calculated 293 mOsm/kg (285-295); Potassium 3.1 mmol/L (3.5-5.1); Sodium 140 mmol/L (136-145)
[2021-08-22 16:32] VITALS: BP 89/63; PULSE 96; RESP 19; O2SAT 93
[2021-08-22 16:44] LABS: Add Urine Culture? No; Bacteria Urine 1+ /hpf; Mucus Urine 1+ /hpf; RBC Urine 0-4 /hpf (0-2); Trichomonas Urine TRACE /hpf
[2021-08-22 17:46] VITALS: BP 138/76; PULSE 77; RESP 17; TEMP 37; O2SAT 97
== END 2021-08-22 17:48 | disposition home or self-care (01) ==
PROVIDERS: Emergency Provider Family Medicine; PCP Family Medicine
DX: R06.4 Hyperventilation (principal); F41.9 Anxiety disorder, unspecified
CPT/HCPCS: 36600; 71045; 80048; 80051; 81001; 82330; 82805; 85025; 94640; 96374; 99284; J2060

== ENCOUNTER → 2021-08-24 08:38 | Outpatient (BNVA) | payer SELFPAY | PROVIDERS: PCP Family Medicine; Visit Provider Obstetrics & Gynecology | DX: N92.0 Excessive and frequent menstruation with regular cycle (principal); R89.6 Abnormal cytological findings in specimens from other organs, systems and tissues | CPT/HCPCS: 76830 ==

== ENCOUNTER → 2021-08-31 08:00 | Outpatient (BNVA) | payer SELFPAY | PROVIDERS: PCP Family Medicine; Visit Provider Obstetrics & Gynecology | DX: R93.89 Abnormal findings on diagnostic imaging of other specified body structures (principal); N94.6 Dysmenorrhea, unspecified; R10.2 Pelvic and perineal pain; Z20.822 Contact with and (suspected) exposure to COVID-19 | CPT/HCPCS: 87635 ==

== ENCOUNTER 2021-09-05 05:45 | Day surgery (SDC) | payer SELFPAY ==
[2021-09-01 11:46] VITALS: BMI 26.6
--- NOTE | 2021-09-01 12:33 | ANES.PREANE2 ---
Pre-Anesthetic Assessment Pre-Anesthetic Assessment: Height/Weight: Height 1.65 m Weight 72.575 kg Preop Diagnosis: thickened endometrium, menorrhagia, dysmenorrhea Proposed Procedure: Operation Date: 09/05/21 07:00 Proposed Procedures p Hysteroscopy w/ Myosure 53880 [id number] R93.89 R10.2 N94.6(Not Applicable) - MD k[place] Bourgeois Dilation And Curettage (D&C)(Not Applicable) - Maryanne Valle MD Was Beta Karla taken within 24 hours: N/A Was Clonidine taken within 24 hours: N/A Social: Social History: No alcohol and No tobacco Exam: Pre-Anes Outpt Exam: alert, oriented x 3, clear to auscultation bilaterally and regular rate & rhythm Airway: Submandibular: WNL Cervical ROM: WNL MP: 2 Dentition: Chipped Pulmonary: Pulmonary: Asthma Neuropsych: Neuropsych: Anxiety Anesthetic Plan: ASA status: 2 Anesthesia: General Risk of > 500 ml blood loss (7ml/kg in children): No PFSH Anesthesia PFSH: Medical History No pertinent past medical history No hx: DM, HTN, thyroid, DVT/PE PCP: Dr. Jordan Surgical History H/O: section Family History Other CAD (coronary artery disease) Cancer Hyperlipidemia Hypertension Psychiatric illness Stroke Denies family history of Diabetes Clotting disorder Dementia Chronic kidney disease (CKD) Suicide Anesthesia complication Bleeding disorder Lung disease Social History Smoking and tobacco status: never smoked Second hand smoke exposure: No Alcohol intake: never Desire information about alcohol rehabilitation?: No Desire information about substance/drug rehabilitation?: No Female Reproductive History: Date of last menstrual period: 08/13/21 Data Anesthesia Cardiac Studies: No Data to Display
[2021-09-01 12:50] LABS: Basophils % 0.5 %; Eosinophils # 0.4 10^3/uL (0.0-0.8); Eosinophils % 4.6 %; Hematocrit 37.8 % (37.0-47.0); Hemoglobin 13.1 g/dL (11.5-15.3); Lymphocytes # 3.3 10^3/uL (0.8-4.8); Lymphocytes % 43.2 %; Mean Corpuscular HGB Conc 34.7 g/dL (30.0-36.0); Mean Corpuscular Hemoglobin 32.8 pg (28.0-34.0); Mean Corpuscular Volume 94.7 fl (81-99); Monocytes # 0.5 10^3/uL (0.2-0.9); Neutrophils # 3.49 10^3/uL (1.8-7.7); Neutrophils % 45.4 %; Nucleated Red Blood Cells % 0 %; Platelet Count 249 10^3/cmm (130-400); Red Blood Count 3.99 10^6/uL (4.1-5.3); Red Cell Distribution Width 11.8 % (12.1-15.1); White Blood Count 7.7 10^3/uL (4.0-10.0)
[2021-09-05] VITALS (9 sets, daily range): BP systolic 78–125; BP diastolic 42–85; PULSE 60–82; RESP 16–21; TEMP 36.8–37; O2SAT 98–100
[2021-09-05] MEDS: ketorolac 30 mg/mL INJ IVP (06:40)
[2021-09-05] MEDS: sodium chloride 0.9% 1,000 ML 30 ML IV (06:40)
[2021-09-05] MEDS: scopolamine 1.5 Patch 1 PATCH TRANSDERMA (06:49)
--- NOTE | 2021-09-05 06:59 | P.ANESUD_ITS ---
Pre-Anesthetic Update Pre-Anesthetic Assessment: Date of Surgery/Procedure: 09/05/21 Preop Dorene gnosis: thickened endometrium, menorrhagia, dysmenorrhea Proposed Procedure: Operation Date: 09/05/21 07:00 Proposed Procedures p Hysteroscopy w/ Myosure 02460 [id number] R93.89 R10.2 N94.6(Not Applicable) - Maryanne Valle MD s Dilation And Curettage (D&C)(Not Applicable) - Maryanne Valle MD Any changes to Pre-Anesthetic Assessment?: No Last Intake: Intake Last Liquid Date 09/04/21 Last Liquid Time 19:00 Last Solid Date 09/04/21 Last Solid Time 19:00 Vitals: Temperature 98.6 F 09/05/21 06:21 Temperature Source Temporal Artery S can 09/05/21 06:21 Pulse Rate 68 09/05/21 06:21 Pulse Rhythm 09/05/21 06:21 Pulse Strength 3+ Normal 09/05/21 06:21 Respiratory Rate 18 09/05/21 06:21 Blood Pressure 125/74 09/05/21 06:21 Blood Pressure Ivana n 91 09/05/21 06:21 Pulse Oximetry 98 09/05/21 06:21 Oxygen Delivery Me thod 09/05/21 06:21 Exam: Pre-Anes Outpt Exam: alert, oriented x 3, clear to auscultation landon aterally and regular rate & rhythm Cardiac Studies: No Data to Display
[2021-09-05 07:25] LABS: OR HCG Qualitative Urine Negative (Negative)
--- NOTE | 2021-09-05 08:00 | W.PM.OPSUD ---
Surgery/Procedure H&P Update DATE OF PROCEDURE: September 05, 2021 DATE H&P PERFORMED: 08/31/21 H&P UPDATE INFORMATION: I have reviewed H&P completed within last 30 days, I have examined patient prior to procedure and No changes to prior documentation PREOP DIAGNOSIS: thickened endometrium, menorrhagia, dysmenorrhea PLANNED PROCEDURE: Operation Date: 09/05/21 07:00 Proposed Procedures p Hysteroscopy w/ Myosure [id number] R93.89 R10.2 N94.6(Not Applicable) - Maryanne Valle MD s Dilation And Curettage (D&C)(Not Applicable) - Maryanne Valle MD Related Problem List Diagnoses (1) Thickened endometrium: (2) Menorrhagia:
[2021-09-05] MEDS: miSOPROStol 200 mcg Tablet 600 MCG (08:40)
--- NOTE | 2021-09-05 09:01 | PM.OP ---
Operative Report Date of procedure: September 05, 2021 Pre-op Diagnosis: thickened endometrium, menorrhagia, dysmenorrhea Post-op diagnosis: same Post-op Findings: thickened endometrium Procedure Done: hysteroscopy, dilation and curettage with myosure Specimens removed/disposition: endometrial curettings to pathology Anesthesia: General Estimated blood loss (mL): 0 IV fluids (mL): 600 Complications: none Findings: 10 week sized uterus with excessive tissue Condition: stable Disposition: PACU Procedure: The patient was taken to the operating room where monitored anesthesia was administered and to be adequate. She was prepped and draped in the normal sterile fashion in the dorsal lithotomy position in [facility]. A weighted speculum was placed into the vagina and the anterior lip of the cervix grasped with a single-tooth tenaculum. The uterus was sounded to 10 cm. The cervix was dilated to 16 [place]. The hysteroscope was advanced into the endometrial cavity. There was excessive tissue and a uterine polyp visualized. The MyoSure device was activated and the tissue was removed. Pictures were taken pre and post procedure. All instruments were removed. The patient tolerated the procedure well. Sponge lap and needle counts were correct x3. She was taken to the recovery room in stable condition.
--- NOTE | 2021-09-05 09:07 | PM.DCS ---
Discharge Providers Date of Discharge: September 05, 2021 Attending Provider at Discharge: Maryanne Vlale MD Primary Care Provider: Wayne Sauer DO Diagnoses at Discharge Discharge Diagnosis (1) Thickened endometrium: Status: Acute (2) Menorrhagia: Status: Acute (3) Postoperative state: Status: Acute Reason for Visit Reason for Visit: Pelvic pain Hospital Course Hospital Course The patient was admitted for surgery. She did well postoperatively and was ready for discharge. Discharge Data Data Completed and Pending: Pending at discharge Category Date Time Status ES surgery / GI i mages Routine Exams 09/05/21 06:56 Taken Pathology: Surgic al [PTH] Routine Pth 09/05/21 08:59 Ordered Labs from last 24 hours 09/05/21 06:02 Urine HCG, Qual Negative Vitals: Last Vital Signs Temp 98.6 F 09/05/21 06:21 Pulse 68 09/05/21 06:21 Resp 18 09/05/21 06:21 BP 125/74 09/05/21 06:21 Pulse Ox 98 09/05/21 06:21 Discharge Plan Discharge Patient Disposition: Home Condition: Stable Prescriptions: Continued prednisone 50 mg tablet 50 mg PO DAILY PRN (Reason: asthma) RF: 0 albuterol sulfate 2.5 mg /3 mL (0.083 %) solution for nebulization 2.5 mg INHALATION Q4H PRN (Reason: shortness of breath or wheezing) Qty: 90 RF: 0 hydroxyzine HCl 25 mg tablet 25 mg PO Q6H PRN (Reason: anxiety) Qty: 20 RF: 0 Discharge Orders: Discharge Order (Routine); Ordered 09/05/21 Ordered By: Maryanne Valle Discharge Attestations Time Spent in Discharge Care*: less than 30 min Quality Metrics Clinical Quality Measures During this hospital stay, did patient experience: None Coding Level of Care Code Acute Chg FW DC note Diagnoses Thickened endometrium R93.89 Menorrhagia N92.0 Postoperative state Z98.890
--- NOTE | 2021-09-05 09:19 | SUR.PHASEI ---
0911 pt awake alert on RA trial, pt c/o of (tightness in my chest , i need my inhaler) pt given albuterol neb as requested by DR MONTAÑO AT BEDSIDE. PT LUNGS HAVE NO AUDIBLE WHEEZES NOTED.
[2021-09-05] MEDS: ibuprofen 800 mg tablet PO (09:48)
--- NOTE | 2021-09-05 11:34 | ANE.PACU2 ---
Inpatient post-anesthesia follow up: Airway intact: Yes Vital signs: Temperature 98.3 F Pulse Rate 60 Respiratory Rate 18 Blood Pressure 108/72 Pulse Oximetry 100 Oxygen Delivery Me thod Room Air Oxygen Flow Rate 8 Fraction of Inspir ed Oxygen Hydration adequate: Yes Nausea and vomiting: No Pain level: 1 Mental status: Baseline
== END 2021-09-05 10:24 | disposition home or self-care (01) ==
PROVIDERS: PCP Family Medicine; Visit Provider Obstetrics & Gynecology
PROC: 0UDB8ZZ Extraction of Endometrium, Via Natural or Artificial Opening Endoscopic (ICD-10-PCS; CPT 58558; principal; 2021-09-05 08:30)
PROC: (CPT 58120; 2021-09-05 08:30)
DX: N92.0 Excessive and frequent menstruation with regular cycle (principal); N94.6 Dysmenorrhea, unspecified; R93.89 Abnormal findings on diagnostic imaging of other specified body structures; J45.909 Unspecified asthma, uncomplicated; F41.9 Anxiety disorder, unspecified; Z82.49 Family history of ischemic heart disease and other diseases of the circulatory system; Z82.3 Family history of stroke; Z87.891 Personal history of nicotine dependence
CPT/HCPCS: 58558; 81025; 84703; 85025; 88305; 96374; J0690; J1100; J1200; J1885; J2405; J2704; J3010; J7030; J7611

== ENCOUNTER → 2021-11-22 12:21 | Outpatient (BNVA) | payer SELFPAY | PROVIDERS: PCP Family Medicine; Visit Provider Nurse Practitioner Family | DX: Z20.822 Contact with and (suspected) exposure to COVID-19 (principal) | CPT/HCPCS: 87635 ==

== ENCOUNTER → 2021-12-07 11:05 | Outpatient (BNVA) | payer OTHER, SELFPAY | PROVIDERS: PCP Family Medicine; Visit Provider Obstetrics & Gynecology | DX: Z20.822 Contact with and (suspected) exposure to COVID-19 (principal); R93.89 Abnormal findings on diagnostic imaging of other specified body structures; N94.6 Dysmenorrhea, unspecified; R10.2 Pelvic and perineal pain | CPT/HCPCS: 87635 ==

== ENCOUNTER 2021-12-21 06:40 | Emergency (ER) | payer SELFPAY ==
[2021-12-21 06:50] VITALS: BP 113/67; PULSE 120; RESP 24; TEMP 36.4; O2SAT 95; BMI 26.6
--- NOTE | 2021-12-21 06:53 | ED_ITS ---
HPI - SOB/Dyspnea General: Chief Complaint: Shortness of Breath/Dyspnea Stated Complaint: Asthma attack Time Seen by Provider: 12/21/21 06:49 Source: patient Mode of arrival: ambulatory Limitations: no limitations History of Present Illness: HPI Narrative: 6-year-old female presents emergency room complaining wheezing and cough. She has a history of asthma she took multiple home nebulizer treatment has not really had much improvement.Patient tested positive for Covid on December 07, 2021 she is now 14 days out. Her cough has been decreasing she not had a fever she now developed this worsening wheezing that seems more in line with her asthma attacks. Her cough has been nonproductive. MD elicited complaint: shortness of breath and cough Pertinent past history: asthma and other (Recently tested positive for Covid December 07, 2021) Timing: constant Severity: moderate Exacerbating factors: nothing Relieving factors: nothing Known history of: asthma Associated symptoms: Reports chest congestion and cough; Deny abdominal pain, chest pain, diaphoresis, dizziness, extremity pain, fever(s), hemoptysis, lightheadedness, myalgias, nausea, orthopnea, palpitations, paresthesias, polydipsia, polyuria, rash, sense of impending doom, syncope or vomiting Treatment prior to arrival: bronchodilator (Nebulized albuterol) Review of Systems Const: Denies: fever(s) or diaphoresis ENMT: Denies: throat pain, ear or mastoid pain, nasal discharge or nasal congestion Card: Denies: chest pain, palpitations, lightheadedness, syncope or orthopnea Resp: Reports: chest congestion; Denies: hemoptysis GI: Denies: abdominal pain, nausea or vomiting : Denies: flank pain, difficulty voiding, dysuria, urinary frequency or urinary urgency Musc: Denies: extremity pain Skin/Breast: Denies: rash or pruritus Neuro: Denies: dizziness Endo: Denies: polyuria or polydipsia PFSH ED PFSH: Medical History No pertinent past medical history No hx: DM, HTN, thyroid, DVT/PE PCP: Dr. Jordan Surgical History H/O: section Family History Other CAD (coronary artery disease) Cancer Hyperlipidemia Hypertension Psychiatric illness Stroke Denies family history of Diabetes Clotting disorder Dementia Chronic kidney disease (CKD) Suicide Anesthesia complication Bleeding disorder Lung disease Social History Smoking and tobacco status: never smoked Second hand smoke exposure: No Alcohol intake: never Desire information about alcohol rehabilitation?: No Desire information about substance/drug rehabilitation?: No Female Reproductive History: Date of last menstrual period: 08/13/21 Physical Exam Const: GENERAL APPEARANCE: cooperative ORIENTATION/CONSCIOUSNESS: Yes awake, Yes oriented to person, Yes oriented to place and Yes oriented to time HENMT: COMMON NORMALS: normocephalic and atraumatic HEAD & SCALP: normocephalic and atraumatic Neck/C-Spine: COMMON NORMALS: no JVD Resp: EFFORT & INSPECTION: Yes retractions, Yes uses accessory muscles and Yes audible wheezes AUSCULTATION: rhonchi and wheezes Cardio: COMMON NORMALS: no JVD, regular rate, regular rhythm and No murmurs present (Cardio) RATE: regular rate RHYTHM: regular rhythm GI: COMMON NORMALS: Soft to palpation and No hepatosplenomegaly present AUSCULTATION: Yes normoactive bowel sounds PALPATION: Yes Soft to palpation, No Tenderness to palpation present (GI), No Guarding due to palpation present (GI) and Yes No hepatosplenomegaly present Extremity: COMMON NORMALS: normal to inspection, capillary refill normal, no clubbing, cyanosis or edema, no calf tenderness and no pedal edema Neuro: SENSORIUM/ORIENTATION: Yes oriented to person, Yes oriented to place and Yes oriented to time Skin: COMMON NORMALS: no rashes or lesions noted GENERAL SKIN EXAM: no rashes or lesions noted Course Vital Signs: Vital signs: Vital Signs Temperature 97.5 F L 12/21/21 06:50 Pulse Rate 97 12/21/21 07:40 Respiratory Rate 22 H 12/21/21 07:40 Blood Pressure 113/67 12/21/21 06:50 Pulse Oximetry 98 12/21/21 07:40 MDM - SOB/Dyspnea Medical Decision Making After nebulizers and steroids patient much improved she still has a little bit of wheezing but is moving significantly more air she does not have any retraction use excess rest muscles she was previously. She would like to go home I think that is appropriate we will give her another DuoNeb treatment. Discharge her home with duo nebs as well as steroid taper. Medical Records I reviewed the patient's medical records. Lab Data I reviewed the patient's lab results. : 12/21/21 07:08 12/21/21 07:08 Labs/Radiology: Radiology Impressions Chest X-Ray 12/21/21 06:56 IMPRESSION: No acute chest abnormality. Laboratory Results WBC 6.7 10^3/uL (4.0-10.0) 12/21/21 07:08 RBC 4.19 10^6/uL (4.1-5.3) 12/21/21 07:08 Hgb 13.3 g/dL (11.5-15.3) 12/21/21 07:08 Hct 39.1 % (37.0-47.0) 12/21/21 07:08 MCV 93.3 fl (81-99) 12/21/21 07:08 MCH 31.7 pg (28.0-34.0) 12/21/21 07:08 MCHC 34.0 g/dL (30.0-36.0) 12/21/21 07:08 RDW 12.4 % (12.1-15.1) 12/21/21 07:08 Plt Count 224 10^3/cmm (130-400) 12/21/21 07:08 MPV 9.8 fL (7.4-10.4) 12/21/21 07:08 Neut % (Auto) 47.5 % 12/21/21 07:08 Lymph % (Auto) 39.7 % 12/21/21 07:08 [place] % (Auto) 6.7 % 12/21/21 07:08 Eos % (Auto) 5.2 % 12/21/21 07:08 Baso % (Auto) 0.6 % 12/21/21 07:08 Neut # (Auto) 3.18 10^3/uL (1.8-7.7) 12/21/21 07:08 Lymph # (Auto) 2.7 10^3/uL (0.8-4.8) 12/21/21 07:08 [place] # (Auto) 0.5 10^3/uL (0.2-0.9) 12/21/21 07:08 Eos # (Auto) 0.4 10^3/uL (0.0-0.8) 12/21/21 07:08 Baso # (Auto) 0.0 10^3/uL (0.0-0.1) 12/21/21 07:08 Nucleated RBC % (auto) 0 % 12/21/21 07:08 Nucleated RBCs # 0.0 /100WBC 12/21/21 07:08 Sodium 139 mmol/L (136-145) 12/21/21 07:08 Potassium 3.4 mmol/L (3.5-5.1) L 12/21/21 07:08 Chloride 107 mmol/L (98-107) 12/21/21 07:08 Carbon Dioxide 20 mmol/L (22-29) L 12/21/21 07:08 Anion Gap 15.4 (5-19) 12/21/21 07:08 BUN 9 mg/dL (6-20) 12/21/21 07:08 Creatinine 0.6 mg/dL (0.5-0.9) 12/21/21 07:08 GFR Calculation 113.1 mL/min (90-130) 12/21/21 07:08 Glucose 123 mg/dL (65-115) H 12/21/21 07:08 Calculated Osmolality 288 mOsm/kg (285-295) 12/21/21 07:08 Calcium 9.7 mg/dL (8.5-10.5) 12/21/21 07:08 Discharge Plan Discharge Patient Disposition: Home Clinical Impression: Asthma with exacerbation Condition: Stable Prescriptions: New ipratropium-albuterol 0.5 mg-3 mg(2.5 mg base)/3 mL solution for nebulization 3 ml inhalation Q6H Qty: 180 0RF prednisone 20 mg tablet 20 mg PO TID Qty: 21 0RF Rx Instructions: 1 p.o. 3 times daily x4 days, 1 p.o. twice daily x3 days, 1 p.o. daily x3 days Discontinued prednisone 50 mg tablet 50 mg PO DAILY PRN (Reason: asthma) 0RF No Action ibuprofen 800 mg tablet 800 mg PO TID Qty: 30 2RF hydroxyzine HCl 25 mg tablet 25 mg PO TID PRN (Reason: itching) Qty: 30 2RF albuterol sulfate [ProAir HFA] 90 mcg/actuation HFA aerosol inhaler 1 puff inhalation QID PRN (Reason: shortness of breath or wheezing) Qty: 8.5 0RF albuterol sulfate 2.5 mg /3 mL (0.083 %) solution for nebulization 2.5 mg INHALATION Q4H PRN (Reason: shortness of breath or wheezing) Qty: 90 0RF hydroxyzine HCl 25 mg tablet 25 mg PO Q6H PRN (Reason: anxiety) Qty: 20 0RF Discharge Orders: Discharge ED (Routine); Ordered 12/21/21 Ordered By: Ronald Peterson Referrals: Wayne Sauer DO [Primary Care Provider] - Discharge Diet: Usual diet Discharge Activity: Limit activity as instructed Patient Instructions: Opioid Safety Activity Restrictions/Additional Instructions: Avoid smoke dust animal dander etc. avoid exertional activities for the next few days. Follow-up with primary care doctor within the next week. Coding Level of Care Code ED [employer] for Chg Fwd Exam Comprehensive
--- NOTE | 2021-12-21 06:56 | XR_ITS ---
WS: [id number] XR chest 1V portable [id number] REASON FOR EXAM: dyspnea/cough FINDINGS: The heart and mediastinum are within normal limits. Normal heart size. Minor calcified granulomatous changes in both hemithoraces. No acute pulmonary parenchymal or pleural disease. Bony thorax is intact. XR/XR chest 1V portable [id number] IMPRESSION: No acute chest abnormality.
[2021-12-21 07:08] VITALS: PULSE 116; O2SAT 96
[2021-12-21 07:14] LABS: Basophils % 0.6 %; Eosinophils # 0.4 10^3/uL (0.0-0.8); Eosinophils % 5.2 %; Hematocrit 39.1 % (37.0-47.0); Hemoglobin 13.3 g/dL (11.5-15.3); Lymphocytes # 2.7 10^3/uL (0.8-4.8); Lymphocytes % 39.7 %; Mean Corpuscular Hemoglobin 31.7 pg (28.0-34.0); Mean Corpuscular Volume 93.3 fl (81-99); Mean Platelet Volume 9.8 fL (7.4-10.4); Monocytes # 0.5 10^3/uL (0.2-0.9); Monocytes % 6.7 %; Neutrophils # 3.18 10^3/uL (1.8-7.7); Neutrophils % 47.5 %; Nucleated Red Blood Cells % 0 %; Platelet Count 224 10^3/cmm (130-400); Red Blood Count 4.19 10^6/uL (4.1-5.3); Red Cell Distribution Width 12.4 % (12.1-15.1); White Blood Count 6.7 10^3/uL (4.0-10.0)
[2021-12-21 07:30] VITALS: PULSE 117; RESP 22; O2SAT 98
[2021-12-21] MEDS: ipratropium-albuterol 3 mL Neb INHALATION (07:30)
[2021-12-21 07:38] VITALS: PULSE 94; O2SAT 97
[2021-12-21 07:40] VITALS: PULSE 97; RESP 22; O2SAT 98
[2021-12-21 07:49] LABS: Anion Gap 15.4 (5-19); Blood Urea Nitrogen 9 mg/dL (6-20); Calcium 9.7 mg/dL (8.5-10.5); Carbon Dioxide 20 mmol/L (22-29); Chloride 107 mmol/L (98-107); Glomerular Filtration Rate 113.1 mL/min (90-130); Glucose 123 mg/dL (65-115); Osmolality Calculated 288 mOsm/kg (285-295); Potassium 3.4 mmol/L (3.5-5.1); Sodium 139 mmol/L (136-145)
[2021-12-21 08:08] VITALS: PULSE 95; O2SAT 97
--- NOTE | 2021-12-21 08:41 | PC.NURSE ---
DISCHARGED PATIENT TO HOME- PATIENT VERBALIZES UNDERSTANDING OF ALL INSTRUCTIONS, PRESCRIPTIONS, AND FOLLOW UP, PATIENT AMBULATED FROM THE ED
== END 2021-12-21 08:34 | disposition home or self-care (01) ==
PROVIDERS: Emergency Provider Family Medicine; PCP Family Medicine
DX: J45.901 Unspecified asthma with (acute) exacerbation (principal)
CPT/HCPCS: 36415; 71045; 80048; 85025; 94640; 96374; 99284; J2930

== ENCOUNTER 2021-12-26 11:18 | Observation (INO) | payer SELFPAY ==
[2021-12-25 13:30] VITALS: BMI 26.6
[2021-12-26] VITALS (22 sets, daily range): BP systolic 99–137; BP diastolic 41–86; PULSE 67–94; RESP 16–18; TEMP 36.6–36.7; O2SAT 94–100
[2021-12-26] MEDS: CELEcoxib 200 mg Capsule 400 MG PO (06:31)
[2021-12-26] MEDS: gabapentin 300 mg Capsule PO (06:32)
[2021-12-26] MEDS: phenazopyridine 100 mg Tablet 200 MG PO (06:32)
[2021-12-26] MEDS: scopolamine 1.5 Patch 1 PATCH TRANSDERMA (06:37)
[2021-12-26] MEDS: acetaminophen 1,000 MG/100 ML PIGGYBACK 400 MG IV (06:50)
[2021-12-26] MEDS: ketorolac 30 mg/mL INJ IVP ×3 (06:52→21:28)
[2021-12-26] MEDS: sodium chloride 0.9% 1,000 ML 30 ML IV (07:00)
--- NOTE | 2021-12-26 07:00 | W.PM.OPSUD ---
Surgery/Procedure H&P Update DATE OF PROCEDURE: December 26, 2021 DATE H&P PERFORMED: 12/21/21 H&P UPDATE INFORMATION: I have reviewed H&P completed within last 30 days, I have examined patient prior to procedure and No changes to prior documentation PREOP DIAGNOSIS: Adenomyosis, thickened endometrium, pelvic pain PLANNED PROCEDURE: Operation Date: 12/26/21 07:00 Proposed Procedures p Laparoscopic Assist Vaginal Hysterectomy 98341 R93.89 R10.2 N94.6(Not Applicable) - Maryanne Valle MD s Salpingo-Oophorectomy (Vaginal)(Bilateral) - Maryanne Valle MD Related Problem List Diagnoses (1) Adenomyosis: (2) Thickened endometrium: (3) ASCUS with positive high risk HPV: (4) Menorrhagia: (5) Dysmenorrhea: (6) Pelvic pain:
[2021-12-26 07:10] LABS: OR HCG Qualitative Urine Negative (Negative)
--- NOTE | 2021-12-26 07:40 | P.ANESASSM_ITS ---
Pre-Anesthetic Assessment Height/Weight: Height 1.65 m Weight 72.575 kg Preop Diagnosis: Adenomyosis, thickened endometrium, pelvic pain Operation Date: 12/26/21 07:00 Proposed Procedures p Laparoscopic Assist Vaginal Hysterectomy 20235 R93.89 R10.2 N94.6(Not Applicable) - Maryanne Valle MD s Salpingo-Oophorectomy (Vaginal)(Bilateral) - Maryanne Valle MD Familial anesthetic complications: None Was Beta Karla taken within 24 hours: N/A Was Clonidine taken within 24 hours: N/A Last intake: Intake Last Liquid Date 12/25/21 Last Liquid Time 19:00 Last Solid Date 12/25/21 Last Solid Time 19:00 Social No alcohol and No tobacco Exam alert, oriented x 3, clear to auscultation bilaterally and regular rate & rhythm Airway Submandibular: within normal limits Cervical ROM: within normal limits Mallampati: Class II Dentition: chipped Pulmonary Asthma (recent ED visist, improved) Neuropsych Anxiety Anesthetic Plan ASA status: 2 Anesthesia: General Risk of > 500 ml blood loss (7ml/kg in children): Yes, adequate IV access and fluids planned Medications/Allergies Home Medications Medication Instructions Recorded Confirmed Last Taken Type albuterol sulfate 2.5 mg (3 mL) INHALATION Q4H PRN 08/22/21 12/26/21 12/26/21 Rx #90 ml hydroxyzine HCl 25 mg tablet 25 mg PO Q6H PRN #20 tab 08/22/21 12/25/21 09/04/21 Rx albuterol sulfate 90 mcg/actuation 1 puff INHALATION QID PRN #8.5 g 09/13/21 0 12/26/21 12/25/21 Rx aerosol inhaler (ProAir HFA) ibuprofen 800 mg tablet 800 mg PO TID #30 tab 09/13/21 12/25/21 Unknown Rx ipratropium 0.5 mg-albuterol 3 mg 3 ml INHALATION Q6H #180 ml 12/21/21 12/26/21 12/25/21 Rx (2.5 mg base)/3 mL nebulization soln prednisone 20 mg tablet 20 mg PO TID #21 tab 12/21/21 12/26/21 12/25/21 Rx Allergies Allergy/AdvReac Type Severity Reaction Status Date / Time No Known Allergies Allergy Verified 12/26/21 06:13 [facility] Anesthesia Medical History No pertinent past medical history No hx: DM, HTN, thyroid, DVT/PE PCP: Dr. Jordan Surgical History H/O: section Family History Other CAD (coronary artery disease) Cancer Hyperlipidemia Hypertension Psychiatric illness Stroke Denies family history of Diabetes Clotting disorder Dementia Chronic kidney disease (CKD) Suicide Anesthesia complication Bleeding disorder Lung disease Social History Smoking and tobacco status: never smoked Second hand smoke exposure: No Alcohol intake: never Desire information about alcohol rehabilitation?: No Desire information about substance/drug rehabilitation?: No Female Reproductive History Date of last menstrual period: 08/13/21 Data Anesthesia : 12/26/21 06:30 12/26/21 06:30 Short CBC 12/26/21 Range/Units 06:30 WBC Cancelled Hgb Cancelled Hct Cancelled MCV Cancelled Plt Count Cancelled Neut % (Auto) Cancelled Neut # (Auto) Cancelled BMP 12/26/21 06:30 Sodium Cancelled Potassium Cancelled Chloride Cancelled Carbon Dioxide Cancelled BUN Cancelled Creatinine Cancelled Glucose Cancelled Calcium Cancelled Cardiac Studies: No Data to Display
[2021-12-26 07:56] LABS: Basophils % 0.4 %; Eosinophils # 0.4 10^3/uL (0.0-0.8); Eosinophils % 5.6 %; Hematocrit 33.3 % (37.0-47.0); Hemoglobin 11.4 g/dL (11.5-15.3); Lymphocytes # 2.9 10^3/uL (0.8-4.8); Lymphocytes % 42.2 %; Mean Corpuscular HGB Conc 34.2 g/dL (30.0-36.0); Mean Corpuscular Hemoglobin 31.9 pg (28.0-34.0); Mean Corpuscular Volume 93.3 fl (81-99); Mean Platelet Volume 9.6 fL (7.4-10.4); Monocytes # 0.4 10^3/uL (0.2-0.9); Monocytes % 6.2 %; Neutrophils # 3.14 10^3/uL (1.8-7.7); Nucleated Red Blood Cells % 0 %; Platelet Count 183 10^3/cmm (130-400); Red Blood Count 3.57 10^6/uL (4.1-5.3); Red Cell Distribution Width 12.2 % (12.1-15.1)
[2021-12-26] MEDS: vasopressin 20 unit/mL INJ INJECTION (08:06)
--- NOTE | 2021-12-26 09:33 | PM.OP ---
Operative Report Date of procedure: December 26, 2021 Pre-op diagnosis: Preop Diagnosis Adenomyosis, thickened endometrium, pelvic pain Post-op diagnosis: same Post-op findings: 9 week sized uterus with 3 cm fibroid on right side. Normal appearing tubes and ovaries Procedure done: laparoscopic assisted vaginal hysterectomy with bilateral salpingoophorectomy Specimens removed/disposition: uterus, bilateral fallopian tubes and bilateral ovaries to pathology Surgeon: Kota Valle Anesthesia: General Estimated blood loss (mL): 325 IV fluids (mL): 1,200 Urine output (mL): 500 Complications: none Findings: 9 week sized uterus with 3 cm fibroid on right side. Normal appearing tubes and ovaries Condition: stable Disposition: floor Procedure: The patient was taken to the operating room where general anesthesia was administered and found to be adequate. She was prepped and draped in the normal sterile fashion in the dorsal lithotomy position in [facility]. A Luis catheter was placed. A weighted speculum was placed into the vagina and the anterior lip of the cervix was grasped with a single tooth tenaculum. The Zumi uterine manipulator was placed. The weighted speculum was removed. The gloves were changed and attention was turned to the abdomen. A 5 mm infraumbilical incision was made. Using a 5 mm port with the camera, the port was placed into the abdomen. The abdomen was insufflated. Two low, lateral 5 mm ports were placed on the left and right under direct visualization from the camera. The right tube was grasped and elevated. Using the laparoscopic cautery, the infundibulopelvic ligament was cauterized lateral to the ovary and tube. The round ligament was also ligated. There was a large mass that appeared to be a fibroid on the right. The same procedure was performed the same way on the left. Attention was then turned to the vaginal portion of the procedure. The weighted speculum was placed into the vagina. The zumi manipulator was removed. The single tooth tenaculum was removed and replaced with the glenis's tenaculum. 10 mL of dilute Pitressin was injected at the vesicovaginal junction. A circumferential incision was made at the vesicovaginal junction and the vaginal mucosa reflected cephalad. The posterior peritoneum was entered sharply with the Metzenbaum scissors and the long weighted speculum replaced. Using the Paul clamps the uterosacral ligaments were clamped cut and suture-ligated. The anterior peritoneum was entered sharply with the metzenbaum scissors. Then sequentially the uterine arteries and cardinal ligaments were clamped cut and suture-ligated. A single-tooth tenaculum was used to deliver the uterus. The remaining segement of the utero-ovarian ligaments were clamped cut and suture-ligated bilaterally and the specimen was removed. There was good hemostasis with only mild bleeding from the cuff. The peritoneum was closed with a pursestring using 2-0 Vicryl. The vaginal cuff was closed with 0 Vicryl in a running locked pattern incorporating the uterosacral ligaments into the lateral aspects of the vaginal cuff. The Luis catheter was removed and the cystoscope advanced into the bladder. The patient was given pyridium and bilateral spill was noted. There were no injuries or deficits noted in the bladder. The cystoscope was removed and the Luis was replaced. Vaginal packing was placed for good hemostasis. The abdominal incisions were closed with 2-O monocryl. The patient tolerated the procedure well. Sponge lap and needle counts were correct x3. She was taken to the recovery room in stable condition.
[2021-12-26] MEDS: fentaNYL 50 mcg/mL INJ 2mL IVP ×2 (10:08→10:15)
[2021-12-26] MEDS: HYDROmorphone 1 mg/mL INJ 1 mL 0.5 MG IVP ×2 (10:39→18:25)
[2021-12-26] MEDS: ondansetron 2 mg/ML SDV 2 mL 4 MG IVP (10:43)
[2021-12-26] MEDS: HYDROcodone-acetaminophen 5-325 mg Tablet PO ×2 (11:58→17:17)
[2021-12-26] MEDS: diphenhydrAMINE 50 mg/mL SDV 1mL 12.5 MG IVP (11:58)
[2021-12-26] MEDS: predniSONE 20 mg Tablet PO ×2 (14:49→21:28)
[2021-12-26] MEDS: ipratropium-albuterol 3 mL Neb INHALATION ×2 (15:36→20:43)
[2021-12-26] MEDS: dextrose 5%-lactated ringers 1,000 ML 125 ML IV (16:31)
--- NOTE | 2021-12-26 16:55 | ANE.PACU2 ---
Inpatient post-anesthesia follow up: Airway intact: Yes Vital signs: Temperature 98.1 F Pulse Rate 81 Respiratory Rate 18 Blood Pressure 99/62 Pulse Oximetry 97 Oxygen Delivery Me thod Room Air Oxygen Flow Rate 6 Fraction of Inspir ed Oxygen Hydration adequate: Yes Nausea and vomiting: No Pain level: 3 Mental status: Baseline
[2021-12-26] MEDS: docusate sodium 100 mg Capsule PO (17:18)
[2021-12-26] MEDS: diphenhydrAMINE 25 mg Capsule PO (17:18)
[2021-12-26] MEDS: simethicone 80 mg Chew PO (18:24)
--- NOTE | 2021-12-26 18:33 | PC.NURSE ---
This nurse assisted pt to ambulate in [place]. Pt made it approximately 50 feet and became light headed and weak. Pt was sat down in a wheelchair and taken back to room and put in bed. VS pulse 94, BP 106/69.
[2021-12-27 02:56] VITALS: PULSE 83; RESP 18; O2SAT 97
[2021-12-27] MEDS: ipratropium-albuterol 3 mL Neb INHALATION (02:56)
[2021-12-27 03:03] VITALS: PULSE 79
[2021-12-27] MEDS: ketorolac 30 mg/mL INJ IVP ×2 (03:08→07:44)
[2021-12-27] MEDS: simethicone 80 mg Chew PO ×2 (03:08→07:44)
[2021-12-27] MEDS: HYDROcodone-acetaminophen 5-325 mg Tablet PO ×2 (03:31→09:06)
[2021-12-27 04:40] VITALS: BP 100/55; PULSE 80; RESP 16; TEMP 36.8; O2SAT 98
[2021-12-27 05:47] LABS: Hematocrit 29.6 % (37.0-47.0); Mean Corpuscular HGB Conc 33.8 g/dL (30.0-36.0); Mean Corpuscular Hemoglobin 31.9 pg (28.0-34.0); Mean Corpuscular Volume 94.6 fl (81-99); Platelet Count 185 10^3/cmm (130-400); Red Blood Count 3.13 10^6/uL (4.1-5.3); Red Cell Distribution Width 12.3 % (12.1-15.1)
--- NOTE | 2021-12-27 08:49 | P.DS_ITS ---
Discharge Providers Date of Admission: 12/26/21 11:18 Date of Discharge: December 27, 2021 Attending Provider at Admission: Maryanne Valle MD Attending Provider at Discharge: Maryanne Valle MD Primary Care Provider: Wayne Sauer DO Diagnoses at Discharge Discharge Diagnosis (1) Adenomyosis: Status: Acute (2) Thickened endometrium: Status: Acute (3) ASCUS with positive high risk HPV: Status: Acute (4) Menorrhagia: Status: Acute (5) Dysmenorrhea: Status: Acute (6) Pelvic pain: Status: Acute Reason for Visit Reason for Visit: Thickened endometrium Hospital Course Hospital Course The patient was admitted for surgery. She did well postoperatively and was ready for discharge. Physical Exam Narrative: The patient is doing well this morning. Her ordaz catheter has been removed and packing has also been removed. Const: COMMON NORMALS: no acute distress, average body habitus, patient oriented x3, no limitations, healthy appearing, alert and well nourished GENERAL APPEARANCE: cooperative, comfortable, well kempt and well developed ORIENTATION/CONSCIOUSNESS: Yes awake, Yes oriented to person, Yes oriented to place and Yes oriented to time Resp: COMMON NORMALS: normal respiratory effort EFFORT & INSPECTION: Yes able to speak in complete sentences GI: COMMON NORMALS: Soft to palpation and non-tender PALPATION: Yes Soft to palpation : COMMON NORMALS: Yes normal external appearance and Yes normal appearance of the vagina Extremity: COMMON NORMALS: no calf tenderness Neuro: COMMON NORMALS: patient oriented x3 SENSORIUM/ORIENTATION: Yes alert, Yes oriented to person, Yes oriented to place and Yes oriented to time Psych: APPEARANCE: Yes well kempt Urinary Catheter Management: Ordaz: Cath Placed During This Visit: yes Reason for Continuing Indwelling Catheter: Perioperative Use in Selected Surgeries Urinary Catheter Date of Insertion: 12/26/21 Urinary Catheter Time of Insertion: 07:15 Discharge Data Studies Completed and Pending Pending at discharge Category Date Time Status ES surgery / GI images Routine Exams 12/26/21 06:53 Taken Urine Culture Routine Lab 12/26/21 07:10 Results Pathology: Surgical [PTH] Routine Pth 12/26/21 09:26 Received Laboratory Results WBC 11.0 10^3/uL (4.0-10.0) H 12/27/21 05:40 Corrected WBC Cancelled 12/26/21 06:30 RBC 3.13 10^6/uL (4.1-5.3) L 12/27/21 05:40 Hgb 10.0 g/dL (11.5-15.3) L 12/27/21 05:40 Hct 29.6 % (37.0-47.0) L 12/27/21 05:40 MCV 94.6 fl (81-99) 12/27/21 05:40 MCH 31.9 pg (28.0-34.0) 12/27/21 05:40 MCHC 33.8 g/dL (30.0-36.0) 12/27/21 05:40 RDW 12.3 % (12.1-15.1) 12/27/21 05:40 Plt Count 185 10^3/cmm (130-400) 12/27/21 05:40 MPV 10.0 fL (7.4-10.4) 12/27/21 05:40 Gran % Cancelled 12/26/21 06:30 Neut % (Auto) 45.0 % 12/26/21 07:40 Lymph % (Auto) 42.2 % 12/26/21 07:40 [place] % (Auto) 6.2 % 12/26/21 07:40 Eos % (Auto) 5.6 % 12/26/21 07:40 Baso % (Auto) 0.4 % 12/26/21 07:40 Neut # (Auto) 3.14 10^3/uL (1.8-7.7) 12/26/21 07:40 Lymph # (Auto) 2.9 10^3/uL (0.8-4.8) 12/26/21 07:40 [place] # (Auto) 0.4 10^3/uL (0.2-0.9) 12/26/21 07:40 Eos # (Auto) 0.4 10^3/uL (0.0-0.8) 12/26/21 07:40 Baso # (Auto) 0.0 10^3/uL (0.0-0.1) 12/26/21 07:40 Absolute Gran (auto) Cancelled 12/26/21 06:30 Nucleated RBC % (auto) 0 % 12/26/21 07:40 Nucleated RBCs # 0.0 /100WBC 12/26/21 07:40 Sodium Cancelled 12/26/21 07:40 Potassium Cancelled 12/26/21 07:40 Chloride Cancelled 12/26/21 07:40 Carbon Dioxide Cancelled 12/26/21 07:40 Anion Gap Cancelled 12/26/21 07:40 BUN Cancelled 12/26/21 07:40 Creatinine Cancelled 12/26/21 07:40 GFR Calculation Cancelled 12/26/21 07:40 Glucose Cancelled 12/26/21 07:40 Calculated Osmolality Cancelled 12/26/21 07:40 Calcium Cancelled 12/26/21 07:40 Urine HCG, Qual Negative (Negative) 12/26/21 06:20 Blood Type A Positive 12/26/21 07:40 Rho(D) Type Positive 12/26/21 07:40 Antibody Screen Negative 12/26/21 07:40 Vitals Last Vital Signs Temp 98.2 F 12/27/21 04:40 Pulse 80 12/27/21 04:40 Resp 16 12/27/21 04:40 BP 100/55 12/27/21 04:40 Pulse Ox 98 12/27/21 04:40 Discharge Plan Discharge Patient Disposition: Home Condition: Stable Prescriptions: New ibuprofen 800 mg Tablet 800 mg PO Q8H Qty: 40 0RF hydrocodone-acetaminophen 5-325 mg Tablet 1 tab PO Q4H PRN (Reason: Moderate To Severe Pain) Qty: 30 0RF docusate sodium 100 mg Capsule 100 mg PO BID Qty: 60 0RF Continued ibuprofen 800 mg tablet 800 mg PO TID Qty: 30 2RF albuterol sulfate [ProAir HFA] 90 mcg/actuation HFA aerosol inhaler 1 puff inhalation QID PRN (Reason: shortness of breath or wheezing) Qty: 8.5 0RF albuterol sulfate 2.5 mg /3 mL (0.083 %) solution for nebulization 2.5 mg INHALATION Q4H PRN (Reason: shortness of breath or wheezing) Qty: 90 0RF ipratropium-albuterol 0.5 mg-3 mg(2.5 mg base)/3 mL solution for nebulization 3 ml inhalation Q6H Qty: 180 0RF prednisone 20 mg tablet 20 mg PO TID Qty: 21 0RF Rx Instructions: 1 p.o. 3 times daily x4 days, 1 p.o. twice daily x3 days, 1 p.o. daily x3 days hydroxyzine HCl 25 mg tablet 25 mg PO Q6H PRN (Reason: anxiety) Qty: 20 0RF Discharge Orders: Discharge Order (Routine); Ordered 12/27/21 Ordered By: Maryanne Valle Patient Instructions: Opioid Safety Discharge Attestations Time Spent in Discharge Care*: less than 30 min Quality Metrics Clinical Quality Measures [ No reported AMI, CVA or VTE this stay] Coding Level of Care Code Acute Chg FW DC note Diagnoses Adenomyosis N80.0 Thickened endometrium R93.89 ASCUS with positive high risk HPV Menorrhagia N92.0 Dysmenorrhea N94.6 Pelvic pain R10.2
[2021-12-27] MEDS: docusate sodium 100 mg Capsule PO (09:06)
[2021-12-27] MEDS: predniSONE 20 mg Tablet PO (09:07)
[2021-12-27] MEDS: diphenhydrAMINE 25 mg Capsule PO (09:11)
[2021-12-27 09:56] VITALS: BP 124/69; PULSE 92; RESP 16; TEMP 36.7; O2SAT 97
[2021-12-27 12:30] VITALS: BP 120/70; PULSE 92; RESP 16; TEMP 36.6; O2SAT 94
== END 2021-12-27 12:35 | disposition home or self-care (01) ==
LOC: OBGYN 11:19
PROVIDERS: Admitting Provider Obstetrics & Gynecology; PCP Family Medicine; Visit Provider Obstetrics & Gynecology
PROC: 0UT9FZZ Resection of Uterus, Via Natural or Artificial Opening With Percutaneous Endoscopic Assistance (ICD-10-PCS; CPT 58552; principal; 2021-12-26 07:00)
PROC: (CPT 58720; 2021-12-26 07:00)
DX: N80.0 Endometriosis of uterus (principal); R93.89 Abnormal findings on diagnostic imaging of other specified body structures; R10.2 Pelvic and perineal pain; N92.0 Excessive and frequent menstruation with regular cycle; N94.6 Dysmenorrhea, unspecified; F41.9 Anxiety disorder, unspecified; Z82.49 Family history of ischemic heart disease and other diseases of the circulatory system
CPT/HCPCS: 58552; 36415; 81025; 84703; 85025; 85027; 86850; 86900; 87086; 88307; 94640; 96365; 96374; G0378; J0690; J1100; J1170; J1200; J1885; J2250; J2405; J2704; J2710; J3010; J3490; J7030; J7512

== ENCOUNTER → 2022-02-09 11:43 | Outpatient (BNVA) | payer SELFPAY | PROVIDERS: PCP Family Medicine; Visit Provider Obstetrics & Gynecology | DX: D17.1 Benign lipomatous neoplasm of skin and subcutaneous tissue of trunk (principal) | CPT/HCPCS: 88304 ==

== ENCOUNTER → 2022-05-28 09:00 | Outpatient (BNVA) | payer MEDICAID, SELFPAY | PROVIDERS: PCP Family Medicine; Visit Provider Family Medicine | DX: B34.9 Viral infection, unspecified (principal); Z20.822 Contact with and (suspected) exposure to COVID-19 | CPT/HCPCS: 87635 ==

== ENCOUNTER 2022-05-29 10:11 | Emergency (ER) | payer MEDICAID, SELFPAY ==
[2022-05-29 10:28] VITALS: BP 100/70; PULSE 90; RESP 18; TEMP 36.6; O2SAT 98; BMI 26.1
--- NOTE | 2022-05-29 10:55 | W.ED.GENADLT ---
HPI - General Adult General: Chief complaint: General Medical Stated complaint: L ear pain Time Seen by Provider: 05/29/22 10:15 Source: patient Mode of arrival: ambulatory Limitations: no limitations History of Present Illness: Patient is a 36-year-old female who presents to ED today with a complaint of sinus pain/pressure, nasal congestion, bilateral ear pain, and sore throat. Patient states she was trying to blow her nose earlier today and states her ears popped and is concerned about TM rupture. Patient was seen for similar symptoms yesterday at the walk-in clinic and prescribed oral steroids. She is not running fevers. Onset (ago): day(s) (4 days ago) Associated symptoms: Reports headache(s); Deny chest pain, dyspnea, malaise, nausea, rash or vomiting Treatments prior to arrival: none and other (has not started steroids yet) Review of Systems Const: Denies: fever(s), chills, body aches, fatigue or malaise Eyes: Denies: change in vision, blurry vision, photophobia, eye discomfort or eye discharge ENMT: Reports: throat pain, ear or mastoid pain, nasal discharge, nasal congestion, post nasal drip and sinus pain; Denies: oral sores, ear discharge, tinnitus or disequilibrium Card: Denies: chest pain Resp: Denies: dyspnea, productive cough or non-productive cough GI: Denies: abdominal pain, nausea or vomiting Musc: Denies: neck pain Skin/Breast: Denies: rash Neuro: Reports: headache(s) PFS ED PFSH: Medical History No pertinent past medical history No hx: DM, HTN, thyroid, DVT/PE PCP: Dr. Jordan Surgical History H/O: section Family History Other CAD (coronary artery disease) Cancer Hyperlipidemia Hypertension Psychiatric illness Stroke Denies family history of Diabetes Clotting disorder Dementia Chronic kidney disease (CKD) Suicide Anesthesia complication Bleeding disorder Lung disease Social History Smoking and tobacco status: never smoked Second hand smoke exposure: No Alcohol intake: never Desire information about alcohol rehabilitation?: No Desire information about substance/drug rehabilitation?: No Female Reproductive History: Date of last menstrual period: 08/13/21 Physical Exam Const: COMMON NORMALS: no acute distress, average body habitus, patient oriented x3, no limitations, healthy appearing, alert and well nourished GENERAL APPEARANCE: cooperative ORIENTATION/CONSCIOUSNESS: Yes awake, Yes oriented to person, Yes oriented to place and Yes oriented to time HENMT: COMMON NORMALS: normocephalic, atraumatic, hearing grossly normal bilaterally, external ears normal, EAC's normal, Normal external nose present, moist oral mucous membranes, oropharynx normal and dentition normal HEAD & SCALP: normal to inspection, normocephalic and atraumatic FACE & SINUS: sinus tenderness frontal and maxillary NOSE: Normal external nose present and Abnormal mucous membranes and turbinates present erythematous EXTERNAL EAR: Yes external ears normal EXTERNAL AUDITORY CANAL: EAC's normal TYMPANIC MEMBRANE: TM abnormal (serous otitis ) MOUTH: Normal oral and palatal mucosa present, lip normal and tongue normal TEETH & GINGIVA: Yes fair dentition THROAT: posterior oropharynx normal, tonsils normal and uvula midline Eye: GENERAL EYE: appearance normal, both eyes and all related structures Neck/C-Spine: COMMON NORMALS: full ROM, no lymphadenopathy and no meningeal signs Resp: COMMON NORMALS: normal respiratory effort and clear to auscultation bilaterally AUSCULTATION: clear to auscultation bilaterally Neuro: COMMON NORMALS: patient oriented x3 and CN's II-XII intact bilaterally SENSORIUM/ORIENTATION: Yes alert, Yes oriented to person, Yes oriented to place and Yes oriented to time MENINGEAL SIGNS: Yes no meningeal signs Skin: COMMON NORMALS: no rashes or lesions noted GENERAL SKIN EXAM: no rashes or lesions noted Course Vital Signs: Vital signs: Vital Signs Temperature 97.9 F 05/29/22 10:28 Pulse Rate 90 05/29/22 10:28 Respiratory Rate 18 05/29/22 10:28 Blood Pressure 100/70 05/29/22 10:28 Pulse Oximetry 98 05/29/22 10:28 [facility] - General Adult Medical Decision Making Patient's history and physical exam is consistent with a sinusitis. Discussed how these are predominantly viral. Will place her on Sudafed. Recommend intranasal steroids such as flonase/nasacort/etc. Can follow up with PCP in 3-5 days if symptoms do not seem to be improving. Discharge Plan Discharge Patient Disposition: Home Clinical Impression: Sinusitis Qualifiers: Sinusitis location: unspecified location Chronicity: acute Recurrence: non-recurrent Qualified Code(s): J01.90 - Acute sinusitis, unspecified Condition: Stable Prescriptions: New pseudoephedrine HCl 60 mg tablet 60 mg PO Q6H PRN (Reason: nasal congestion) Qty: 16 0RF No Action albuterol sulfate [ProAir HFA] 90 mcg/actuation HFA aerosol inhaler 1 puff inhalation QID PRN (Reason: shortness of breath or wheezing) Qty: 8.5 0RF prednisone 20 mg tablet 40 mg PO DAILY Qty: 10 0RF metronidazole 500 mg tablet 500 mg PO BID Qty: 14 0RF albuterol sulfate 2.5 mg /3 mL (0.083 %) solution for nebulization 2.5 mg INHALATION Q4H PRN (Reason: shortness of breath or wheezing) Qty: 90 0RF ipratropium-albuterol 0.5 mg-3 mg(2.5 mg base)/3 mL solution for nebulization 3 ml inhalation Q6H Qty: 180 0RF prednisone 20 mg tablet 20 mg PO TID Qty: 21 0RF Rx Instructions: 1 p.o. 3 times daily x4 days, 1 p.o. twice daily x3 days, 1 p.o. daily x3 days hydroxyzine HCl 25 mg tablet 25 mg PO Q6H PRN (Reason: anxiety) Qty: 20 0RF Discharge Orders: Discharge ED (Routine); Ordered 05/29/22 Ordered By: Lucy Erazo Referrals: Wayne Sauer DO [Primary Care Provider] - Patient Instructions: Sinusitis (ED) Coding Level of Care Code ED Cooperative Education Director for Chg Fwd Exam Detailed
== END 2022-05-29 11:02 | disposition home or self-care (01) ==
PROVIDERS: Emergency Provider Physician Assistant; PCP Family Medicine
DX: J01.90 Acute sinusitis, unspecified (principal)
CPT/HCPCS: 99283

== ENCOUNTER 2022-07-30 05:25 | Inpatient (IN) | payer MEDICAID, SELFPAY ==
[2022-07-30] VITALS (209 sets, daily range): BP systolic 88–143; BP diastolic 50–106; PULSE 71–148; RESP 10–45; TEMP 35.8–36.9; O2SAT 81–100; BMI 27.4
[2022-07-30 05:29] LABS: Arterial Blood Gas Hematocrit 39.3 % (37-47); Base Excess ABG -9.9 mmol/L (-2.0-2.0); Blood Gas Allen Test Pos; Blood Gas Sample Site Radial, right; Blood Gas Sample Type Arterial; HCO3 ABG 19.5 mmol/L (22-26); Oxygen Device ROOM AIR
[2022-07-30 05:30] LABS: ABG PH Result 7.14 (7.35-7.45)
--- NOTE | 2022-07-30 05:32 | ECG_ITS ---
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 Measurements Intervals [place] Rate: 126 P: [place]: QRS: 79 QRSD: 81 T: 75 QT: 310 QTc: 449 Interpretive Statements Sinus tachycardia MODERATE ST DEPRESSION [0.05+ mV ST DEPRESSION] No previous ECG available for comparison Electronically Signed On 07-30-2022 7:40:04 CDT by Castro Lopez M.D. [id number]
--- NOTE | 2022-07-30 05:35 | XRR_ITS ---
PROCEDURE INFORMATION: Exam: XR Chest Exam date and time: 07/30/2022 5:41 AM Age: 36 years old Clinical indication: Shortness of breath; Additional info: SOB TECHNIQUE: Imaging protocol: Radiologic exam of the chest. Views: 1 view. COMPARISON: CR XR chest 1V portable [id number] 12/21/2021 7:02 AM FINDINGS: Lungs: Unremarkable. No consolidation. Pleural spaces: Unremarkable. No pleural effusion. No pneumothorax. Heart/Mediastinum: Unremarkable. No cardiomegaly. Bones/joints: Unremarkable. XR/XR chest 1V portable [id number] IMPRESSION: No acute findings.
[2022-07-30] MEDS: ipratropium-albuterol 3 mL Neb INHALATION ×6 (05:36→23:49)
[2022-07-30] MEDS: midazolam 1 mg/mL INJ 2 mL 2 MG IVP (05:40)
[2022-07-30 05:42] LABS: Basophils # 0.1 10^3/uL (0.0-0.1); Basophils % 0.6 %; Eosinophils # 1.2 10^3/uL (0.0-0.8); Eosinophils % 9.8 %; Hematocrit 36.6 % (37.0-47.0); Lymphocytes # 6.8 10^3/uL (0.8-4.8); Lymphocytes % 56.1 %; Mean Corpuscular HGB Conc 32.8 g/dL (30.0-36.0); Mean Corpuscular Hemoglobin 31.3 pg (28.0-34.0); Mean Corpuscular Volume 95.6 fl (81-99); Mean Platelet Volume 10.1 fL (7.4-10.4); Monocytes # 0.8 10^3/uL (0.2-0.9); Monocytes % 6.4 %; Neutrophils # 3.24 10^3/uL (1.8-7.7); Neutrophils % 26.8 %; Nucleated Red Blood Cells % 0 %; Platelet Count 292 10^3/cmm (130-400); Red Blood Count 3.83 10^6/uL (4.1-5.3); Red Cell Distribution Width 12.9 % (12.1-15.1); White Blood Count 12.1 10^3/uL (4.0-10.0)
[2022-07-30] MEDS: ondansetron 2 mg/ML SDV 2 mL 4 MG IVP (05:43)
[2022-07-30] MEDS: diphenhydrAMINE 50 mg/mL SDV 1mL IVP (05:45)
[2022-07-30] MEDS: sodium chloride 0.9% 1,000 ML 999 ML IV (05:47)
[2022-07-30] MEDS: magnesium sulfate premix 2 GM/50 ML PIGGYBACK IV (05:47)
--- NOTE | 2022-07-30 05:47 | W.ED.SOB ---
Documented by User: Kyle Obregon DO 07/30/22 22:18 HPI - SOB/Dyspnea General: Chief Complaint: Shortness of Breath/Dyspnea Stated Complaint: RESP. DISTRESS Time Seen by Provider: 07/30/22 05:26 Source: patient and EMS History of Present Illness: HPI Narrative: 36-year-old female with a history of asthma. She by EMS. They found her minimally responsive but breathing with sudden onset around an hour and a half prior to arrival according to her boyfriend. She was bag valve assisted in breathing in route, with improvement in her mental status. She presents in respiratory distress. MD elicited complaint: shortness of breath and asthma attack Pertinent past history: asthma Onset (ago): hour(s) Timing: constant and progressively worsening Severity: severe Exacerbating factors: exertion and coughing Relieving factors: oxygen Known history of: asthma Associated symptoms: Reports chest congestion and cough; Deny abdominal pain, chest pain, fever(s) or vomiting Treatment prior to arrival: oxygen Review of Systems General: Reports: ROS unobtainable due to medical condition Const: Denies: fever(s) Card: Denies: chest pain Resp: Reports: dyspnea, non-productive cough, wheezing and chest congestion GI: Denies: abdominal pain or vomiting Skin/Breast: Reports: rash PFSH ED PFSH: Medical History (Updated 07/30/22 @ 07:38 by Derrick Sanon MD) Moderate persistent asthma No pertinent past medical history No hx: DM, HTN, thyroid, DVT/PE PCP: Dr. Jordan Surgical History (Updated 07/30/22 @ 07:38 by Derrick Sanon MD) H/O: section History of hysterectomy Family History Other CAD (coronary artery disease) Cancer Hyperlipidemia Hypertension Psychiatric illness Stroke Denies family history of Diabetes Clotting disorder Dementia Chronic kidney disease (CKD) Suicide Anesthesia complication Bleeding disorder Lung disease Social History Smoking and tobacco status: never smoked Second hand smoke exposure: No Alcohol intake: never Desire information about alcohol rehabilitation?: No Desire information about substance/drug rehabilitation?: No Female Reproductive History: Date of last menstrual period: 08/13/21 Physical Exam Const: EXAM LIMITATIONS: altered mental status GENERAL APPEARANCE: cooperative, in distress, lethargic and ill appearing ORIENTATION/CONSCIOUSNESS: Yes lethargic HENMT: COMMON NORMALS: normocephalic, atraumatic and Normal external nose present HEAD & SCALP: normocephalic and atraumatic FACE & SINUS: edema NOSE: Normal external nose present and Normal nares present MOUTH: Normal oral and palatal mucosa present Eye: COMMON NORMALS: Equal, round and reactive pupils present and EOMs intact bilaterally PUPIL: Yes Equal, round and reactive pupils present Neck/C-Spine: GENERAL: Yes trachea midline Chest: CHEST: Yes Symmetrical chest wall rise Resp: EFFORT & INSPECTION: Yes tachypneic, Yes respiratory distress, Yes labored, Yes retractions and Yes uses accessory muscles AUSCULTATION: wheezes Cardio: COMMON NORMALS: regular rhythm RATE: tachycardic RHYTHM: regular rhythm GI: COMMON NORMALS: Normal to inspection, nondistended, normoactive bowel sounds present and Soft to palpation PALPATION: Yes Soft to palpation Extremity: COMMON NORMALS: no pedal edema Neuro: JAYA COMA SCALE: document GCS findings Jaya coma scale eye opening: To sound Jaya coma scale verbal response: Confused [place] coma scale motor response: Obey commands [place] coma scale total score: 13 SENSORIUM/ORIENTATION: Yes lethargic Skin: NARRATIVE SKIN EXAM: Facial erythema Course Vital Signs: Vital signs: Vital Signs Temperature 97.8 F 07/30/22 08:45 Pulse Rate 90 07/30/22 21:55 Respiratory Rate 19 H 07/30/22 21:55 Blood Pressure 120/71 07/30/22 21:55 Pulse Oximetry 98 07/30/22 21:55 Oxygen Delivery Or thod 07/30/22 19:35 Oxygen Flow Rate 2 07/30/22 08:39 Fraction of Inspir ed Oxygen 25 07/30/22 07:35 MDM - SOB/Dyspnea Medical Decision Making Patient arrives in respiratory distress. Initial blood gases 7.15 with respiratory and metabolic components. She is placed on BiPAP. She is beginning to improve. She received DuoNeb treatment, Solu-Medrol, and magnesium as well. Creatinine is 1. Sugar is 353. Other labs are pending chest x-ray is clear. She will be checked out to the oncoming physician at shift change for further treatment and admission Lab Data : 07/30/22 05:29 07/30/22 05:29 Labs/Radiology: Radiology Impressions Chest X-Ray 07/30/22 05:35 IMPRESSION: No acute findings. Laboratory Results WBC 12.1 10^3/uL (4.0-10.0) H 07/30/22 05:29 RBC 3.83 10^6/uL (4.1-5.3) L 07/30/22 05:29 Hgb 12.0 g/dL (11.5-15.3) 07/30/22 05:29 Hct 36.6 % (37.0-47.0) L 07/30/22 05:29 MCV 95.6 fl (81-99) 07/30/22 05:29 MCH 31.3 pg (28.0-34.0) 07/30/22 05:29 MCHC 32.8 g/dL (30.0-36.0) 07/30/22 05:29 RDW 12.9 % (12.1-15.1) 07/30/22 05:29 Plt Count 292 10^3/cmm (130-400) 07/30/22 05:29 MPV 10.1 fL (7.4-10.4) 07/30/22 05:29 Neut % (Auto) 26.8 % 07/30/22 05:29 Lymph % (Auto) 56.1 % 07/30/22 05:29 [place] % (Auto) 6.4 % 07/30/22 05:29 Eos % (Auto) 9.8 % 07/30/22 05:29 Baso % (Auto) 0.6 % 07/30/22 05:29 Neut # (Auto) 3.24 10^3/uL (1.8-7.7) 07/30/22 05:29 Lymph # (Auto) 6.8 10^3/uL (0.8-4.8) H 07/30/22 05:29 [place] # (Auto) 0.8 10^3/uL (0.2-0.9) 07/30/22 05:29 Eos # (Auto) 1.2 10^3/uL (0.0-0.8) H 07/30/22 05:29 Baso # (Auto) 0.1 10^3/uL (0.0-0.1) 07/30/22 05:29 Nucleated RBC % (auto) 0 % 07/30/22 05:29 Nucleated RBCs # 0.0 /100WBC 07/30/22 05:29 Specimen Type Arterial 07/30/22 05:27 Sample Site Radial, right 07/30/22 05:27 ABG pH 7.14 (7.35-7.45) L* 07/30/22 05:27 ABG pCO2 57.0 mmHg (35-45) H 07/30/22 05:27 ABG pO2 192.0 mmHg (80.0-100.0) H 07/30/22 05:27 ABG HCO3 19.5 mmol/L (22-26) L 07/30/22 05:27 ABG Base Excess -9.9 mmol/L (-2.0-2.0) L 07/30/22 05:27 Kendall Test Pos 07/30/22 05:27 Hematocrit 39.3 % (37-47) 07/30/22 05:27 O2 Delivery Device Room air 07/30/22 05:27 Utility Tractor Operator ID [email or web address] 07/30/22 05:27 Sodium 136 mmol/L (136-145) 07/30/22 05:29 Potassium 3.8 mmol/L (3.5-5.1) 07/30/22 05:29 Chloride 101 mmol/L (98-107) 07/30/22 05:29 Carbon Dioxide 21 mmol/L (22-29) L 07/30/22 05:29 Anion Gap 17.8 (5-19) 07/30/22 05:29 BUN 16 mg/dL (6-20) 07/30/22 05:29 Creatinine 1.0 mg/dL (0.5-0.9) H 07/30/22 05:29 GFR Calculation 62.7 mL/min (90-130) L 07/30/22 05:29 Glucose 353 mg/dL (65-115) H 07/30/22 05:29 Estimat Average Glucose 94 07/30/22 05:29 Hemoglobin A1c 4.9 % (4.0-6.0) 07/30/22 05:29 Calculated Osmolality 297 mOsm/kg (285-295) H 07/30/22 05:29 Lactic Acid 4.9 mmol/L (0.5-2.2) H* 07/30/22 05:29 Calcium 8.7 mg/dL (8.5-10.5) 07/30/22 05:29 Magnesium 2.2 mg/dL (1.7-2.3) 07/30/22 05:29 Total Bilirubin 0.3 mg/dL (0.15-1.2) 07/30/22 05:29 AST 23 U/L (0-32) 07/30/22 05:29 ALT 23 U/L (0-33) 07/30/22 05:29 Alkaline Phosphatase 82 U/L (35-105) 07/30/22 05:29 NT-Pro-B Natriuret Pep 11 pg/mL (0-125) 07/30/22 05:29 Total Protein 6.9 g/dL (6.6-8.7) 07/30/22 05:29 Albumin 4.0 g/dL (3.5-5.2) 07/30/22 05:29 Globulin 2.9 g/dL (1.3-4.6) 07/30/22 05:29 Serum Ketones Negative (Negative) 07/30/22 05:29 Discharge Plan Discharge Patient Disposition: Admitted As Inpatient Admit Provider: Derrick Sanon Clinical Impression: Asthma with exacerbation, Acute respiratory failure with hypoxia Condition: Stable Coding Level of Care Code ED Anatomic Pathology Manager for Chg Fwd Exam Comprehensive Documented by User: Ava Chinchilla MD 07/30/22 08:08 HPI - SOB/Dyspnea General: Chief Complaint: Shortness of Breath/Dyspnea Stated Complaint: RESP. DISTRESS Time Seen by Provider: 07/30/22 05:26 [facility] ED PFSH: Medical History (Updated 07/30/22 @ 07:38 by Derrick Sanon MD) Moderate persistent asthma No pertinent past medical history No hx: DM, HTN, thyroid, DVT/PE PCP: Dr. Jordan Surgical History (Updated 07/30/22 @ 07:38 by Derrick Sanon MD) H/O: section History of hysterectomy Family History Other CAD (coronary artery disease) Cancer Hyperlipidemia Hypertension Psychiatric illness Stroke Denies family history of Diabetes Clotting disorder Dementia Chronic kidney disease (CKD) Suicide Anesthesia complication Bleeding disorder Lung disease Social History Smoking and tobacco status: never smoked Second hand smoke exposure: No Alcohol intake: never Desire information about alcohol rehabilitation?: No Desire information about substance/drug rehabilitation?: No Physical Exam Neuro: JAYA COMA SCALE: document GCS findings Jaya coma scale total score: 13 Course Vital Signs: Vital signs: Vital Signs Temperature 97.8 F 07/30/22 08:45 Pulse Rate 90 07/30/22 21:55 Respiratory Rate 19 H 07/30/22 21:55 Blood Pressure 120/71 07/30/22 21:55 Pulse Oximetry 98 07/30/22 21:55 Oxygen Delivery Me thod 07/30/22 19:35 Oxygen Flow Rate 2 07/30/22 08:39 Fraction of Inspir ed Oxygen 25 07/30/22 07:35 MDM - SOB/Dyspnea Medical Decision Making Patient arrives in respiratory distress. Initial blood gases 7.15 with respiratory and metabolic components. She is placed on BiPAP. She is beginning to improve. She received DuoNeb treatment, Solu-Medrol, and magnesium as well. Creatinine is 1. Sugar is 353. Other labs are pending chest x-ray is clear. She will be checked out to the oncoming physician at shift change for further treatment and admission Patient is improving here after magnesium epinephrine and BiPAP her tidal volumes improved on BiPAP she feels much improved as well. She is acidotic likely from her asthma she does have an elevated lactate likely from her hypoxia will admit to the ICU at this point spoke to the hospitalist who is admitting. Lab Data : 07/30/22 05:29 07/30/22 05:29 Labs/Radiology: Radiology Impressions Chest X-Ray 07/30/22 05:35 IMPRESSION: No acute findings. Laboratory Results WBC 12.1 10^3/uL (4.0-10.0) H 07/30/22 05:29 RBC 3.83 10^6/uL (4.1-5.3) L 07/30/22 05:29 Hgb 12.0 g/dL (11.5-15.3) 07/30/22 05:29 Hct 36.6 % (37.0-47.0) L 07/30/22 05:29 MCV 95.6 fl (81-99) 07/30/22 05:29 MCH 31.3 pg (28.0-34.0) 07/30/22 05:29 MCHC 32.8 g/dL (30.0-36.0) 07/30/22 05:29 RDW 12.9 % (12.1-15.1) 07/30/22 05:29 Plt Count 292 10^3/cmm (130-400) 07/30/22 05:29 MPV 10.1 fL (7.4-10.4) 07/30/22 05:29 Neut % (Auto) 26.8 % 07/30/22 05:29 Lymph % (Auto) 56.1 % 07/30/22 05:29 [place] % (Auto) 6.4 % 07/30/22 05:29 Eos % (Auto) 9.8 % 07/30/22 05:29 Baso % (Auto) 0.6 % 07/30/22 05:29 Neut # (Auto) 3.24 10^3/uL (1.8-7.7) 07/30/22 05:29 Lymph # (Auto) 6.8 10^3/uL (0.8-4.8) H 07/30/22 05:29 [place] # (Auto) 0.8 10^3/uL (0.2-0.9) 07/30/22 05:29 Eos # (Auto) 1.2 10^3/uL (0.0-0.8) H 07/30/22 05:29 Baso # (Auto) 0.1 10^3/uL (0.0-0.1) 07/30/22 05:29 Nucleated RBC % (auto) 0 % 07/30/22 05:29 Nucleated RBCs # 0.0 /100WBC 07/30/22 05:29 Specimen Type Arterial 07/30/22 05:27 Sample Site Radial, right 07/30/22 05:27 ABG pH 7.14 (7.35-7.45) L* 07/30/22 05:27 ABG pCO2 57.0 mmHg (35-45) H 07/30/22 05:27 ABG pO2 192.0 mmHg (80.0-100.0) H 07/30/22 05:27 ABG HCO3 19.5 mmol/L (22-26) L 07/30/22 05:27 ABG Base Excess -9.9 mmol/L (-2.0-2.0) L 07/30/22 05:27 Kendall Test Pos 07/30/22 05:27 Hematocrit 39.3 % (37-47) 07/30/22 05:27 O2 Delivery Device Room air 07/30/22 05:27 Utility Tractor Operator ID [email or web address] 07/30/22 05:27 Sodium 136 mmol/L (136-145) 07/30/22 05:29 Potassium 3.8 mmol/L (3.5-5.1) 07/30/22 05:29 Chloride 101 mmol/L (98-107) 07/30/22 05:29 Carbon Dioxide 21 mmol/L (22-29) L 07/30/22 05:29 Anion Gap 17.8 (5-19) 07/30/22 05:29 BUN 16 mg/dL (6-20) 07/30/22 05:29 Creatinine 1.0 mg/dL (0.5-0.9) H 07/30/22 05:29 GFR Calculation 62.7 mL/min (90-130) L 07/30/22 05:29 Glucose 353 mg/dL (65-115) H 07/30/22 05:29 Estimat Average Glucose 94 07/30/22 05:29 Hemoglobin A1c 4.9 % (4.0-6.0) 07/30/22 05:29 Calculated Osmolality 297 mOsm/kg (285-295) H 07/30/22 05:29 Lactic Acid 4.9 mmol/L (0.5-2.2) H* 07/30/22 05:29 Calcium 8.7 mg/dL (8.5-10.5) 07/30/22 05:29 Magnesium 2.2 mg/dL (1.7-2.3) 07/30/22 05:29 Total Bilirubin 0.3 mg/dL (0.15-1.2) 07/30/22 05:29 AST 23 U/L (0-32) 07/30/22 05:29 ALT 23 U/L (0-33) 07/30/22 05:29 Alkaline Phosphatase 82 U/L (35-105) 07/30/22 05:29 NT-Pro-B Natriuret Pep 11 pg/mL (0-125) 07/30/22 05:29 Total Protein 6.9 g/dL (6.6-8.7) 07/30/22 05:29 Albumin 4.0 g/dL (3.5-5.2) 07/30/22 05:29 Globulin 2.9 g/dL (1.3-4.6) 07/30/22 05:29 Serum Ketones Negative (Negative) 07/30/22 05:29 Critical Care Time Critical Care Time: Critical Care Time: Yes Total Critical Care Time: 40 Attestation: The high probability of a clinically significant, sudden or life threatening deterioration of the patient's resp system(s) required my full and direct attention, intervention and personal management. The critical care time is as shown. This time is in addition to time spent performing any reported procedures but includes the following: [x] Data and vital sign review and interpretation [x] Patient assessment, examination and intervention [x] Documentation [x] Medication orders and management Discharge Plan Discharge Patient Disposition: Admitted As Inpatient Admit Provider: Derrick Sanon Clinical Impression: Asthma with exacerbation, Acute respiratory failure with hypoxia Condition: Stable Coding Level of Care Code ED Anatomic Pathology Manager for Margot Fwd Exam Comprehensive
[2022-07-30] MEDS: EPINEPHrine 1 mg/mL INJ 0.3 MG IM (05:51)
[2022-07-30 05:52] LABS: Ketone (Acetest) Serum Negative (Negative)
[2022-07-30 06:10] LABS: Alanine Aminotransferase 23 U/L (0-33); Alkaline Phosphatase 82 U/L (35-105); Anion Gap 17.8 (5-19); Aspartate Amino Transferase 23 U/L (0-32); Blood Urea Nitrogen 16 mg/dL (6-20); Calcium 8.7 mg/dL (8.5-10.5); Carbon Dioxide 21 mmol/L (22-29); Chloride 101 mmol/L (98-107); Globulin 2.9 g/dL (1.3-4.6); Glomerular Filtration Rate 62.7 mL/min (90-130); Glucose 353 mg/dL (65-115); Magnesium 2.2 mg/dL (1.7-2.3); NT Pro B Type Natriuretic Pept 11 pg/mL (0-125); Osmolality Calculated 297 mOsm/kg (285-295); Potassium 3.8 mmol/L (3.5-5.1); Sodium 136 mmol/L (136-145); Total Bilirubin 0.3 mg/dL (0.15-1.2); Total Protein 6.9 g/dL (6.6-8.7)
[2022-07-30 06:12] LABS: Lactic Sepsis W/Reflex 4.9 mmol/L (0.5-2.2); Slide Review Slide Review Perform
[2022-07-30 07:27] LABS: Reflex Lactate Order REFLEX LACTIC ORDERD
--- NOTE | 2022-07-30 07:30 | PC.PHAR ---
pt states she takes care of her own medications-pt states she took an old rx of 2 prednisones this am before coming in ext med history shows last filled 20mg take 40mg daily for 5 days rx filled 05/25/22 5d/s-pt states she has albuterol and ipratropium-albuterol for the neb and uses prn ext med history doesnt show when last filled-pt states she also has an proair inhaler ext med history doesnt show when last filled- pt states she takes no otc meds-notes are made in the pharmacy comments
--- NOTE | 2022-07-30 07:31 | PM.HP ---
Providers/Chief Complaint Admitting Physician: Derrick Sanon MD Primary Care Provider: Wayne Sauer DO Chief Complaint: RESP. DISTRESS History of Present Illness Toma Riojas is a 36 year old female presenting to the emergency department with severe shortness of breath and wheezing. Patient reports she has been ill for 3 days, with cough productive of yellow sputum, chills, wheezing. She has had some posttussive emesis. She denies any ill contacts at home. She has a history of asthma. Apparently at home she was minimally responsive when boyfriend alerted EMS. She received bag valve assisted breathing in route, with improvement in her mental status. She does not give me any history of fever. History is somewhat limited as she is on BiPAP at the time of this exam. She is able to relate to me that she has some right back pain and rib pain currently. She relates this was going on prior to arrival to the emergency department. She is significantly tender to any palpation of the region. In the emergency department she got a breathing treatment, BiPAP, magnesium, IV steroids, subcutaneous epinephrine, IV fluids. Review of Systems General: Reports: 10 or more systems reviewed and unremarkable except in HPI and below Const: Reports: chills; Denies: fever(s) Eyes: Denies: change in vision ENMT: Reports: nasal congestion Card: Denies: chest pain Resp: Reports: dyspnea, productive cough and wheezing GI: Reports: vomiting (Posttussive); Denies: abdominal pain, nausea, hematochezia or melena : Denies: flank pain Musc: Reports: back pain Skin/Breast: Denies: rash Neuro: Denies: headache(s) Psych: Denies: anxiety or depression Endo: Denies: polyuria Fabio/Lymph: Denies: easy bruising All/Imm: Denies: urticaria Medications/Allergies Home Medications Medication Instructions Recorded Confirmed Last Taken Type albuterol sulfate 2.5 mg (3 mL) inhalation Q4H PRN 08/22/21 05/28/22 12/26/21 Rx shortness of breath or wheezing #90 mL albuterol sulfate 90 mcg/actuation 1 puff inhalation QID PRN 09/13/21 05/28/22 12/25/21 Rx aerosol inhaler (ProAir HFA) shortness of breath or wheezing #8.5 grams ipratropium 0.5 mg-albuterol 3 mg 3 ml inhalation Q6H PRN Shortness 07/30/22 07/30/22 Unknown History (2.5 mg base)/3 mL nebulization Of Breath soln prednisone 20 mg tablet 40 mg PO .ONCE 07/30/22 07/30/22 07/30/22 History old rx pt took today Allergies Allergy/AdvReac Type Severity Reaction Status Date / Time No Known Allergies Allergy Verified 07/30/22 07:27 PFSH Acute PFSH: Medical History (Updated 07/30/22 @ 07:38 by Derrick Sanon MD) Moderate persistent asthma No pertinent past medical history No hx: DM, HTN, thyroid, DVT/PE PCP: Dr. Jordan Surgical History (Updated 07/30/22 @ 07:38 by Derrick Sanon MD) H/O: section History of hysterectomy Family History Other CAD (coronary artery disease) Cancer Hyperlipidemia Hypertension Psychiatric illness Stroke Denies family history of Diabetes Clotting disorder Dementia Chronic kidney disease (CKD) Suicide Anesthesia complication Bleeding disorder Lung disease Social History Smoking and tobacco status: never smoked Second hand smoke exposure: No Alcohol intake: never Desire information about alcohol rehabilitation?: No Desire information about substance/drug rehabilitation?: No Female Reproductive History: Date of last menstrual period: 08/13/21 Vitals/I&O/Wt Last Vital Signs Temp 96.5 F L 07/30/22 05:26 Pulse 114 H 07/30/22 06:56 Resp 30 H 07/30/22 06:56 BP 109/65 07/30/22 06:56 Pulse Ox 100 07/30/22 06:56 O2 Del Method 07/30/22 05:48 FiO2 30 07/30/22 05:37 07/29/22 07/30/22 07/30/22 22:59 06:59 14:59 Intake Total 50 / 50 1000 / 1000 Balance 50 / 50 1000 / 1000 Weight last 48 hrs Weight 74.843 kg Physical Exam Narrative: General exam demonstrates a female, who becomes alert with verbal prompting, on BiPAP. HEENT: Atraumatic and normocephalic. Pupils equally round. Oropharynx not examined secondary to BiPAP. Neck is supple no lymphadenopathy or thyromegaly Cardiovascular tachycardia, regular, no murmur Lungs few expiratory wheezes but fair aeration currently. No crackles. Abdomen is soft. Positive bowel sounds. No obvious organomegaly exam was deferred Extremities no cyanosis clubbing or edema, cap refill brisk Skin no rash, or bruising Neuro no obvious focal deficits. Data : 07/30/22 05:29 07/30/22 05:29 Other Labs: Initial ABG pH 7.14, PCO2 57, PO2 192. This is reported on room air but I believe she was being bagged with oxygen on arrival to the emergency department. LFTs normal Lactic acid 4.9 Serum ketones negative Chest x-ray no infiltrate EKG demonstrates sinus tachycardia, normal axis, nonspecific ST-T wave changes Micro: Microbiology 07/30/22 05:57 Blood Culture - Preliminary Blood SPECIMEN COLLECTED 07/30/22 06:00 Blood Culture - Preliminary Blood SPECIMEN COLLECTED A&P Assessment and plan (1) Asthma with exacerbation: Patient with significant acute asthma exacerbation. Chest x-ray shows no infiltrate, but infection not completely excluded with patient's given history of yellowish sputum. We will treat with doxycycline for possibility of acute bronchitis. Check COVID PCR Continue IV steroids Solu-Medrol 60 mg every 6 hours Currently being supported with BiPAP. Wean off as tolerated. DuoNeb every 4 hours, albuterol every 2 hours as needed Add budesonide twice daily Singulair once daily Consider long-acting beta agonist coupled with steroid inhalation on discharge Review triggers when possible. Patient currently on BiPAP making this difficult. Follow closely for improvement. Note that the patient received magnesium, epinephrine subcu/IM on arrival to the emergency department secondary to severity of presentation. Status: Acute (2) Acute respiratory failure with hypoxia: Patient presented with acute respiratory failure, hypoxemia, and hypercarbia secondary to asthma exacerbation. Status: Acute Plan Acute metabolic encephalopathy reported on arrival to the patient's home by EMS. This is likely secondary to respiratory failure and hypercarbia. It appears to be resolving. Hyperglycemia. Likely related to stress. Check hemoglobin A1c. Full code Lovenox for DVT prophylaxis Attestations Medical Necessity Statement*: Will need greater than 2 midnight stay for evaluation and treatment of severe asthma exacerbation causing hypercarbic respiratory failure. Critical Care Time: The high probability of a clinically significant, sudden or life threatening deterioration of the patient's [pulmonary, neurologic] system(s) required my full and direct attention, intervention and personal management. The critical care time is as shown. 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
[2022-07-30 08:02] LABS: Estmated Average Glucose 94; Hemoglobin A1C 4.9 % (4.0-6.0)
[2022-07-30] MEDS: budesonide 0.5 mg/2 mL Neb INHALATION ×2 (08:39→19:35)
[2022-07-30] MEDS: pantoprazole DR 40 mg Tablet PO (08:54)
[2022-07-30] MEDS: sodium chloride 0.9% 1,000 ML 30 ML IV (08:54)
[2022-07-30] MEDS: montelukast sodium 10 mg Tablet PO (08:54)
[2022-07-30] MEDS: doxycycline 100 mg Tablet PO ×2 (08:54→17:15)
[2022-07-30] MEDS: enoxaparin 40 mg/0.4 mL Syringe SUBCUT (08:55)
[2022-07-30] MEDS: acetaminophen 325 mg Tablet 650 MG PO ×2 (09:00→15:59)
[2022-07-30 09:27] LABS: Lactic Acid level (Lactate) 3.3 mmol/L (0.5-2.2)
[2022-07-30 09:46] LABS: Adenovirus Not Detected (NOT DETECT); Chlamydia Pneumoniae Not Detected (NOT DETECT); Coronavirus 229E,HKU1,NL63,OC4 Not Detected (NOT DETECT); Human Metapneumovirus Not Detected (NOT DETECT); Human Rhinovirus/Enterovirus Not Detected (NOT DETECT); Influenza A Not Detected (NOT DETECT); Influenza A H1 Not Detected (NOT DETECT); Influenza A H1-2009 Not Detected (NOT DETECT); Influenza A H3 Not Detected (NOT DETECT); Influenza B Not Detected (NOT DETECT); Mycoplasma Pneumoniae Not Detected (NOT DETECT); Parainfluenza Virus Type 1 Not Detected (NOT DETECT); Parainfluenza Virus Type 2 Not Detected (NOT DETECT); Parainfluenza Virus Type 3 Not Detected (NOT DETECT); Parainfluenza Virus Type 4 Not Detected (NOT DETECT); Respiratory Syncytial Virus A Not Detected (NOT DETECT); Respiratory Syncytial Virus B Not Detected (NOT DETECT); SARS-COV-2 Not Detected (NOT DETECT)
--- NOTE | 2022-07-30 09:54 | PC.CHAP ---
Pastoral Care Encounter/Spiritual Assessment Type of Contact [] Declined manufacturing controller visit [] Patient/Family/Request visit [] Outpatient visit [] Follow-up visit [] Physician referral [] Code/Alert [x] Routine visit [] Staff referral [] Actively dying [x] Patient sleeping [] Family support [] [] Out of room [] Palliative care [] [] Receiving care in room [] Pre-surgical visit [] Trauma [] Long length of stay [x] ICU visit [] Other: Relational/Emotional Strength [] Patient feels connected with others/family/visitors/staff [] Distress [] Loneliness/isolation [] Abandonment Spirituality of Patient [] Person of Allison [] Attends Alevism of their Allison [] Believes in Prayer [] Reads Bible or Rastafarian materials [] There are Spiritual issues to be addressed Mobile Home Set Up Person Interventions [x] Prayer [] Active listening [] Non-anxious presence [] Spiritual/emotional support [] Crisis/trauma care [] Spiritual counseling [] Bereavement support [] Provided bereavement packet [] Provided Bible/devotional materials [] Provided toy/stuffed animal, coloring book to patient or family member [] Provided Communion [] Anointing/[place] [] Salvation [x] Completed spiritual assessment [] Other: Impact on Illness or Injury [] Angry [] Fearful [] Anxious [] Often cries [] Exhaustion [] Unable to work [] Unable to attend episcopal [] Unable to walk/stand [] Unable to read [] Unable to drive [] Unable to eat/drink [] Unable to sleep [] Unable to be with family [] Patient intubated [] Other: Summary Time spent with patient
[2022-07-31] VITALS (184 sets, daily range): BP systolic 89–118; BP diastolic 45–68; PULSE 72–125; RESP 8–45; TEMP 36.6–36.8; O2SAT 86–100; BMI 27.4
[2022-07-31] MEDS: ipratropium-albuterol 3 mL Neb INHALATION ×5 (03:14→21:28)
[2022-07-31 04:09] LABS: Basophils % 0.1 %; Hematocrit 34.6 % (37.0-47.0); Hemoglobin 11.4 g/dL (11.5-15.3); Lymphocytes # 1.2 10^3/uL (0.8-4.8); Lymphocytes % 12.2 %; Mean Corpuscular HGB Conc 32.9 g/dL (30.0-36.0); Mean Corpuscular Hemoglobin 31.2 pg (28.0-34.0); Mean Corpuscular Volume 94.8 fl (81-99); Mean Platelet Volume 10.1 fL (7.4-10.4); Monocytes # 0.2 10^3/uL (0.2-0.9); Monocytes % 2.3 %; Neutrophils # 8.31 10^3/uL (1.8-7.7); Neutrophils % 85.1 %; Nucleated Red Blood Cells % 0 %; Platelet Count 244 10^3/cmm (130-400); Red Blood Count 3.65 10^6/uL (4.1-5.3); Red Cell Distribution Width 13.1 % (12.1-15.1); White Blood Count 9.8 10^3/uL (4.0-10.0)
[2022-07-31 04:33] LABS: Anion Gap 15.6 (5-19); Blood Urea Nitrogen 11 mg/dL (6-20); Calcium 9.3 mg/dL (8.5-10.5); Carbon Dioxide 21 mmol/L (22-29); Chloride 104 mmol/L (98-107); Glomerular Filtration Rate 113.1 mL/min (90-130); Glucose 152 mg/dL (65-115); Magnesium 2.1 mg/dL (1.7-2.3); Osmolality Calculated 286 mOsm/kg (285-295); Potassium 3.6 mmol/L (3.5-5.1); Sodium 137 mmol/L (136-145)
--- NOTE | 2022-07-31 07:07 | PM.PN ---
Subjective Subjective: Patient reports she is doing okay. She is still coughing quite a bit, but feels better than yesterday. No chest discomfort. No leg discomfort. Does not feel swollen. Medications: Reviewed: Yes Vitals/I&O/Wt Last Vital Signs Temp 98.2 F 07/31/22 00:00 Pulse 97 07/31/22 06:20 Resp 25 H 07/31/22 06:20 BP 118/61 07/31/22 06:20 Pulse Ox 93 07/31/22 06:20 O2 Del Method 07/31/22 03:14 O2 Flow Rate 2 07/30/22 08:39 FiO2 25 07/30/22 07:35 07/30/22 07/31/22 07/31/22 22:59 06:59 14:59 Intake Total 0 / 1240 Output Total 0 / 0 Balance 0 / 1240 0 / 1240 Weight last 48 hrs Weight 74.843 kg Weight 74.843 kg Physical Exam Narrative: General exam demonstrates a female, no distress evident currently Neck is supple no lymphadenopathy or thyromegaly Cardiovascular tachycardia, regular, no murmur Lungs fair aeration. Few expiratory wheezes. Abdomen is soft. Positive bowel sounds. No obvious organomegaly Extremities no cyanosis clubbing or edema, cap refill brisk Skin no rash, or bruising Data : 07/31/22 03:12 07/31/22 03:12 Micro: Microbiology 07/30/22 06:00 Blood Culture - Preliminary Blood NEGATIVE TO DATE 07/30/22 05:57 Blood Culture - Preliminary Blood NEGATIVE TO DATE A&P Assessment and plan (1) Asthma with exacerbation: Patient with significant acute asthma exacerbation. Chest x-ray shows no infiltrate, but infection not completely excluded with patient's given history of yellowish sputum. Continue doxycycline for possibility of acute bronchitis. COVID PCR was checked and negative Discontinue Solu-Medrol, changed to prednisone She weaned off BiPAP promptly yesterday Continue DuoNeb every 4 hours Continue budesonide twice daily Singulair once daily Loratadine once daily Consider long-acting beta agonist coupled with steroid inhalation on discharge Patient is not sure of triggers. Consider referral to pulmonary on discharge. Follow closely for improvement. Note that the patient received magnesium, epinephrine subcu/IM on arrival to the emergency department secondary to severity of presentation. Transfer out of ICU, reassess this afternoon Status: Acute (2) Acute respiratory failure with hypoxia: Patient presented with acute respiratory failure, hypoxemia, and hypercarbia secondary to asthma exacerbation. Status: Acute Plan Acute metabolic encephalopathy reported on arrival to the patient's home by EMS. This is likely secondary to respiratory failure and hypercarbia. It appears to be resolving. Hyperglycemia. Likely related to stress. Hemoglobin A1c was checked and normal Full code Lovenox for DVT prophylaxis Attestations Medical Necessity Statement*: At this point needs continued hospital stay for transition off IV steroids, close monitoring secondary to the severity of her acute asthma exacerbation with presentation with encephalopathy, respiratory failure, hypercarbia on arrival in this patient who is still wheezing. 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
[2022-07-31] MEDS: pantoprazole DR 40 mg Tablet PO (08:45)
[2022-07-31] MEDS: montelukast sodium 10 mg Tablet PO (08:45)
[2022-07-31] MEDS: enoxaparin 40 mg/0.4 mL Syringe SUBCUT (08:46)
[2022-07-31] MEDS: doxycycline 100 mg Tablet PO ×2 (08:46→18:03)
[2022-07-31] MEDS: guaiFENesin-dextromethorphan UDC 10 mL 5 ML PO (08:46)
[2022-07-31] MEDS: loratadine 10 mg Tablet PO (08:46)
[2022-07-31] MEDS: predniSONE 20 mg Tablet 60 MG PO (11:25)
[2022-07-31] MEDS: ALPRAZolam 0.5 mg Tablet PO ×2 (12:53→21:11)
[2022-07-31] MEDS: acetaminophen 325 mg Tablet 650 MG PO (19:58)
[2022-08-01] VITALS (7 sets, daily range): BP systolic 96–109; BP diastolic 59–69; PULSE 64–84; RESP 16; TEMP 36.4–36.8; O2SAT 96–99
[2022-08-01] MEDS: ipratropium-albuterol 3 mL Neb INHALATION (07:50)
--- NOTE | 2022-08-01 08:18 | PM.DCS ---
Discharge Providers Date of Admission: 07/30/22 08:39 Date of Discharge: August 01, 2022 Attending Provider at Admission: Derrick Sanon MD Attending Provider at Discharge: Derrick Sanon MD Primary Care Provider: Wayne Sauer DO Diagnoses at Discharge Discharge Diagnosis (1) Asthma with exacerbation: Status: Acute (2) Acute respiratory failure with hypoxia: Status: Acute Reason for Visit Reason for Visit: RESP. DISTRESS Hospital Course Hospital Course Toma presented to the hospital encephalopathic, and respiratory failure with asthma exacerbation. In the emergency department she was placed on BiPAP, received nebulized treatments, IV steroids, IV magnesium magnesium, and subcutaneous epinephrine. With this treatment she was improved by the time I saw her. IV steroids were continued, regular nebs, addition of Singulair and loratadine, and close monitoring. Doxycycline was added for concern of bronchitis. Over the course of her hospital stay she had significant improvement by the time of discharge she was on room air, not requiring BiPAP, with good aeration and no significant wheezing on expiration. It was thought she could discharge home, with close follow-up with her primary care provider as well as pulmonary. She was instructed to return for any worsening. During hospital stay chest x-ray was negative for infiltrate. COVID PCR was negative. Physical Exam Narrative: General exam is no distress Neck is supple no lymphadenopathy thyromegaly Cardiovascular regular rate and rhythm Lungs clear Abdomen is soft, positive bowel sounds Extremities no cyanosis clubbing or edema Skin no rash Discharge Data Studies Completed and Pending Completed Studies During Hospitalization Category Date Time Status XR chest 1V portable [id number] Stat Exams 07/30/22 05:35 Completed Pending at discharge Category Date Time Status Blood Culture Stat Lab 07/30/22 05:57 Results Radiology Impressions Chest X-Ray 07/30/22 05:35 IMPRESSION: No acute findings. Laboratory Results WBC 9.8 10^3/uL (4.0-10.0) 07/31/22 03:12 RBC 3.65 10^6/uL (4.1-5.3) L 07/31/22 03:12 Hgb 11.4 g/dL (11.5-15.3) L 07/31/22 03:12 Hct 34.6 % (37.0-47.0) L 07/31/22 03:12 MCV 94.8 fl (81-99) 07/31/22 03:12 MCH 31.2 pg (28.0-34.0) 07/31/22 03:12 MCHC 32.9 g/dL (30.0-36.0) 07/31/22 03:12 RDW 13.1 % (12.1-15.1) 07/31/22 03:12 Plt Count 244 10^3/cmm (130-400) 07/31/22 03:12 MPV 10.1 fL (7.4-10.4) 07/31/22 03:12 Neut % (Auto) 85.1 % 07/31/22 03:12 Lymph % (Auto) 12.2 % 07/31/22 03:12 [place] % (Auto) 2.3 % 07/31/22 03:12 Eos % (Auto) 0.0 % 07/31/22 03:12 Baso % (Auto) 0.1 % 07/31/22 03:12 Neut # (Auto) 8.31 10^3/uL (1.8-7.7) H 07/31/22 03:12 Lymph # (Auto) 1.2 10^3/uL (0.8-4.8) 07/31/22 03:12 [place] # (Auto) 0.2 10^3/uL (0.2-0.9) 07/31/22 03:12 Eos # (Auto) 0.0 10^3/uL (0.0-0.8) 07/31/22 03:12 Baso # (Auto) 0.0 10^3/uL (0.0-0.1) 07/31/22 03:12 Nucleated RBC % (auto) 0 % 07/31/22 03:12 Nucleated RBCs # 0.0 /100WBC 07/31/22 03:12 Specimen Type Arterial 07/30/22 05:27 Sample Site Radial, right 07/30/22 05:27 ABG pH 7.14 (7.35-7.45) L* 07/30/22 05:27 ABG pCO2 57.0 mmHg (35-45) H 07/30/22 05:27 ABG pO2 192.0 mmHg (80.0-100.0) H 07/30/22 05:27 ABG HCO3 19.5 mmol/L (22-26) L 07/30/22 05:27 ABG Base Excess -9.9 mmol/L (-2.0-2.0) L 07/30/22 05:27 Kendall Test Pos 07/30/22 05:27 Hematocrit 39.3 % (37-47) 07/30/22 05:27 O2 Delivery Device Room air 07/30/22 05:27 Power System Dispatcher ID [email or web address] 07/30/22 05:27 Sodium 137 mmol/L (136-145) 07/31/22 03:12 Potassium 3.6 mmol/L (3.5-5.1) 07/31/22 03:12 Chloride 104 mmol/L (98-107) 07/31/22 03:12 Carbon Dioxide 21 mmol/L (22-29) L 07/31/22 03:12 Anion Gap 15.6 (5-19) 07/31/22 03:12 BUN 11 mg/dL (6-20) 07/31/22 03:12 Creatinine 0.6 mg/dL (0.5-0.9) 07/31/22 03:12 GFR Calculation 113.1 mL/min (90-130) 07/31/22 03:12 Glucose 152 mg/dL (65-115) H 07/31/22 03:12 Estimat Average Glucose 94 07/30/22 05:29 Hemoglobin A1c 4.9 % (4.0-6.0) 07/30/22 05:29 Calculated Osmolality 286 mOsm/kg (285-295) 07/31/22 03:12 Lactic Acid 4.9 mmol/L (0.5-2.2) H* 07/30/22 05:29 Lactic Acid (Sepsis) 3.3 mmol/L (0.5-2.2) H 07/30/22 08:29 Calcium 9.3 mg/dL (8.5-10.5) 07/31/22 03:12 Magnesium 2.1 mg/dL (1.7-2.3) 07/31/22 03:12 Total Bilirubin 0.3 mg/dL (0.15-1.2) 07/30/22 05:29 AST 23 U/L (0-32) 07/30/22 05:29 ALT 23 U/L (0-33) 07/30/22 05:29 Alkaline Phosphatase 82 U/L (35-105) 07/30/22 05:29 NT-Pro-B Natriuret Pep 11 pg/mL (0-125) 07/30/22 05:29 Total Protein 6.9 g/dL (6.6-8.7) 07/30/22 05:29 Albumin 4.0 g/dL (3.5-5.2) 07/30/22 05:29 Globulin 2.9 g/dL (1.3-4.6) 07/30/22 05:29 Serum Ketones Negative (Negative) 07/30/22 05:29 Coronavirus 229E (PCR) Not detected (NOT DETECT) 07/30/22 07:50 SARS-CoV-2 (PCR) Not detected (NOT DETECT) 07/30/22 07:50 Vitals Last Vital Signs Temp 98.3 F 08/01/22 07:49 Pulse 81 08/01/22 07:50 Resp 16 08/01/22 07:50 BP 96/59 08/01/22 07:49 Pulse Ox 98 08/01/22 07:50 O2 Del Method 08/01/22 07:50 O2 Flow Rate 2 07/31/22 20:00 FiO2 25 07/30/22 07:35 Discharge Plan Discharge Patient Disposition: Home Condition: Stable Prescriptions: New montelukast 10 mg Tablet 10 mg PO DAILY Qty: 30 0RF loratadine 10 mg Tablet 10 mg PO DAILY Qty: 30 0RF fluticasone propion-salmeterol [Advair Diskus] 500-50 mcg/dose blister with device 1 inh inhalation BID Qty: 60 0RF prednisone 10 mg tablet See Rx Instructions .ROUTE .COMPLEX Qty: 30 0RF Rx Instructions: 40 mg orally for 3 days, 30mg/d for 3 days, 20mg/d for 3 days, 10 mg/d for 3 days then stop doxycycline monohydrate 100 mg Tablet 100 mg PO BID Qty: 10 0RF Continued albuterol sulfate [ProAir HFA] 90 mcg/actuation HFA aerosol inhaler 1 puff inhalation QID PRN (Reason: shortness of breath or wheezing) Qty: 8.5 0RF albuterol sulfate 2.5 mg /3 mL (0.083 %) solution for nebulization 2.5 mg INHALATION Q4H PRN (Reason: shortness of breath or wheezing) Qty: 90 0RF Discontinued ipratropium-albuterol 0.5 mg-3 mg(2.5 mg base)/3 mL solution for nebulization 3 ml inhalation Q6H PRN (Reason: Shortness Of Breath) prednisone 20 mg tablet 40 mg PO .ONCE Discharge Orders: Discharge Order (Routine); Ordered 08/01/22 Ordered By: Derrick Sanon Referrals: Wayne Sauer DO [Primary Care Provider] - 4-7 days Datar,Zackary Rogers MD [Physician] - 2 weeks Discharge Diet: Regular Discharge Activity: Increase activity as tolerated Patient Instructions: Opioid Safety Activity Restrictions/Additional Instructions: Take all medicine as prescribed. Return for any worsening. After use of Advair wash your mouth out. Discharge Attestations Time Spent in Discharge Care*: greater than 30 min Quality Metrics Clinical Quality Measures [ No reported AMI, CVA or VTE this stay] Coding Level of Care Code Acute Chg FW DC note Diagnoses Asthma with exacerbation J45.901 Acute respiratory failure with hypoxia J96.01
[2022-08-01] MEDS: montelukast sodium 10 mg Tablet PO (08:41)
[2022-08-01] MEDS: loratadine 10 mg Tablet PO (08:41)
[2022-08-01] MEDS: doxycycline 100 mg Tablet PO (08:41)
[2022-08-01] MEDS: predniSONE 20 mg Tablet 60 MG PO (08:41)
[2022-08-01] MEDS: pantoprazole DR 40 mg Tablet PO (08:41)
== END 2022-08-01 09:45 | disposition home or self-care (01) | DRG 202 ==
LOC: ER 07:01 → ICU 08:08 → MEDSURG 07-31 15:12
PROVIDERS: Emergency Medicine; Admitting Provider Internal Medicine; Emergency Provider Emergency Medicine; PCP Family Medicine; Visit Provider Internal Medicine
DX: J45.41 Moderate persistent asthma with (acute) exacerbation (principal); G93.41 Metabolic encephalopathy; J96.02 Acute respiratory failure with hypercapnia; J96.01 Acute respiratory failure with hypoxia; R73.9 Hyperglycemia, unspecified; Z79.51 Long term (current) use of inhaled steroids
CPT/HCPCS: 36415; 36600; 71045; 80048; 80053; 82009; 82803; 83036; 83605; 83735; 83880; 85025; 87040; 87635; 93005; 94640; 94660; 96365; 96372; 96375; 99291; J0171; J1200; J1650; J2250; J2405; J2930; J3475; J7030; J7512; J7626

== ENCOUNTER → 2022-08-06 12:59 | Outpatient (BNVA) | payer MEDICAID, SELFPAY | PROVIDERS: PCP Family Medicine; Visit Provider Internal Medicine Pulmonary Disease | DX: J45.40 Moderate persistent asthma, uncomplicated (principal) | CPT/HCPCS: 82785; 86003 ==

== ENCOUNTER → 2022-08-24 15:22 | Outpatient (BNVA) | payer MEDICAID, SELFPAY | PROVIDERS: PCP Family Medicine; Visit Provider Obstetrics & Gynecology | DX: R39.9 Unspecified symptoms and signs involving the genitourinary system (principal) | CPT/HCPCS: 81000; 87086 ==

== ENCOUNTER → 2022-08-29 11:03 | Outpatient (BNVA) | payer MEDICAID, SELFPAY | PROVIDERS: PCP Family Medicine; Visit Provider Obstetrics & Gynecology | DX: R39.9 Unspecified symptoms and signs involving the genitourinary system (principal); L98.9 Disorder of the skin and subcutaneous tissue, unspecified | CPT/HCPCS: 87086; 88304 ==

== ENCOUNTER 2022-09-20 08:09 | Outpatient (CLI) | payer MEDICAID, SELFPAY ==
--- NOTE | 2022-09-20 08:41 | PFTS_ITS ---
Date of Study: 09/20/2022 Date of Dictation: 09/20/2022 MECHANICS: Forced vital capacity (FVC) is normal. Forced expiratory volume in one second (FEV1) is reduced. FEV1/FVC is reduced. There is significant postbronchodilator response postbronchodilator study FLOW VOLUME LOOP: Sloping of expiratory limb suggestive of airflow obstruction LUNG VOLUMES: Total lung capacity (TLC) is normal. Residual volume (RV) is moderately increased. DIFFUSING CAPACITY FOR CARBON MONOXIDE: Normal . INTERPRETATION: The spirometry suggestive of moderate airflow obstruction. There is significant response to bronchodilators. Lung volumes suggestive of moderate air trapping. Gas transfer is normal. Overall constellation of findings consistent with reversible obstructive ventilatory diseases like asthma. Correlate clinically. ??This interpretation has been electronically signed: DATAR, CEDRIC SCHRADER 09/27/2022 11:58:49 AM?? MTDD
== END 2022-09-20 08:10 | disposition home or self-care (01) ==
LOC: RT 08:10
PROVIDERS: PCP Family Medicine; Visit Provider Internal Medicine Pulmonary Disease
DX: J82.83 Eosinophilic asthma (principal); J45.40 Moderate persistent asthma, uncomplicated
CPT/HCPCS: 94060; 94726; 94729; J7613

== ENCOUNTER → 2022-11-30 10:47 | Outpatient (BNVA) | payer MEDICAID, SELFPAY | PROVIDERS: PCP Family Medicine; Visit Provider Internal Medicine Pulmonary Disease | DX: J22 Unspecified acute lower respiratory infection (principal); B34.9 Viral infection, unspecified | CPT/HCPCS: 71046 ==

== ENCOUNTER 2022-12-29 13:43 | Emergency (ER) | payer MEDICAID, SELFPAY ==
[2022-12-29 13:48] VITALS: BP 122/67; PULSE 102; RESP 18; TEMP 36.7; O2SAT 97
--- NOTE | 2022-12-29 14:13 | XRR_ITS ---
PROCEDURE INFORMATION: Exam: XR Right Shoulder Exam date and time: 12/29/2022 2:28 PM Age: 37 years old Clinical indication: Injury or trauma; Fall; Blunt trauma (contusions or hematomas); Shoulder; Right; Additional info: Fall, bony ttp, eval FX TECHNIQUE: Imaging protocol: Radiologic exam of the Right shoulder. Views: 2 or more views. COMPARISON: CR XR chest 2V* [id number] 11/30/2022 11:01 AM FINDINGS: Bones/joints: Normal. Soft tissues: Normal. XR/XR shoulder RT min 2V* [id number] IMPRESSION: No acute findings.
[2022-12-29] MEDS: ibuprofen 200 mg Tablet 400 MG PO (14:21)
[2022-12-29] MEDS: acetaminophen 500 mg Tablet 1000 MG PO (14:21)
--- NOTE | 2022-12-29 14:22 | ED_ITS ---
HPI - Fall General: Chief Complaint: Fall Stated Complaint: fall, right side injury Time Seen by Provider: 12/29/22 13:58 History of Present Illness: 37-year-old female with past medical history of illness anxiety presenting after a fall at home. She was walking through her house when she tripped on a entryway gate in her home. She subsequently fell forward with her hand outstretched catching herself with her right arm in extension at the wrist, elbow, and shoulder, falling forward. Afterward she had aching pain worse with movement, better with rest in her right shoulder, elbow, hand, and right ankle. She is able to ambulate on her right ankle. Denies fevers, sweats, chills. Did not take anything for the pain at home. No head strike. No blood thinners. No other areas of tenderness. Associated symptoms-after fall: Denies abdominal pain, chest pain, headache(s) or neck pain Review of Systems General: Reports: 10 or more systems reviewed and unremarkable except in HPI and below Const: Denies: fever(s) or chills Eyes: Denies: change in vision or blurry vision ENMT: Denies: throat pain or uvular edema Card: Reports: swelling of feet/ankles (Right ankle swollen); Denies: chest pain Resp: Denies: dyspnea GI: Denies: abdominal pain or nausea : Denies: flank pain or difficulty voiding Musc: Denies: neck pain or back pain Skin/Breast: Denies: rash or pruritus Neuro: Denies: headache(s) or numbness in extremities Psych: Denies: anxiety or depression PFSH ED PFSH: Medical History Moderate persistent asthma No pertinent past medical history No hx: DM, HTN, thyroid, DVT/PE PCP: Dr. Jordan Surgical History H/O: section History of hysterectomy Family History Mother Lung disease COPD Other CAD (coronary artery disease) Cancer Hyperlipidemia Hypertension Psychiatric illness Stroke Denies family history of Diabetes Clotting disorder Dementia Chronic kidney disease (CKD) Suicide Anesthesia complication Bleeding disorder Social History Smoking and tobacco status: former smoker Quit status (tobacco): has quit using tobacco Year quit tobacco: 2016 Former quit date comment: less than 0.25 ppd x 1 year Female Reproductive History: Spontaneous abortions: No Physical Exam Const: COMMON NORMALS: no acute distress and average body habitus EXAM L IMITATIONS: no altered mental status and no behavioral limitations HENMT: COMMON NORMALS: normocephalic, atraumatic, external ears normal and Normal external nose present HEAD & SCALP: normocephalic and atraumatic FACE & SINUS: normal facial exam NOSE: Normal external nose present EXTERNAL EAR: Yes external ears normal MOUTH: Normal oral and palatal mucosa present THROAT: no uvular edema Eye: COMMON NORMALS: Equal, round and reactive pupils present and conjunctivae normal CONJUNCTIVA: Yes conjunctivae normal PUPIL: Yes Equal, round and reactive pupils present Neck/C-Spine: COMMON NORMALS: full ROM and no meningeal signs Chest: COMMONS NORMALS: normal inspection of the chest and normal palpation of entire chest wall Resp: COMMON NORMALS: normal respiratory effort, No retractions and No use of accessory muscles GI: COMMON NORMALS: Normal to inspection, nondistended, normoactive bowel sounds present, Soft to palpation and non-tender PALPATION: Yes Soft to palpation : COMMON NORMALS: Yes no CVA tenderness BLADDER/KIDNEY EXAM: Yes no CVA tenderness and No CVA tenderness Back/Pelvis: COMMON NORMALS: no CVA tenderness and no thoracic nor lumbar tenderness GENERAL BACK: No CVA tenderness Extremity: NARRATIVE EXTREMITY EXAM: Right lower extremity with lateral malleolus tenderness on the inferior posterior edge. No ankle instability, neurovascularly intact distal to the injury. Patient additionally has tenderness about the right wrist on the radial aspect of the radius without carpal bone tenderness, no scaphoid bone tenderness, pain with axial loading of the thumb. Tenderness to the elbow is lateral epicondylar tenderness. Tenderness of the shoulder is diffuse without focal tenderness no tenderness elsewhere. GENERAL: Yes normal exam except as noted Neuro: MENINGEAL SIGNS: Yes no meningeal signs Course Vital Signs: Vital signs: Vital Signs Temperature 98.0 F 12/29/22 13:48 Pulse Rate 102 H 12/29/22 13:48 Respiratory Rate 18 12/29/22 13:48 Blood Pressure 122/67 12/29/22 13:48 Pulse Oximetry 97 02/18/23 13:48 Oxygen Delivery Me thod 12/29/22 13:48 MDM - Fall Medical Decision Making 37-year-old female presents after sustaining a mechanical ground-level fall. Vitals nonactionable. Pain controlled with 40 mg ibuprofen and 1000 mg Tylenol. X-rays of tender areas taken. No suspicion for intracranial injury, life- threatening intrathoracic or intra-abdominal injury, unstable large bone frac ture, other injuries at this encounter. Patient's x-rays not demonstrating acute bony abnormality. Placed in sling for comfort. Advised on [id number] pain control medication and ice and eleva tion at home. Medical Records I reviewed the patient's medical records. Lab Data Radiology Impressions Shoulder X-Ray 12/29/22 14:13 IMPRESSION: No acute findings. Elbow X-Ray 12/29/22 15:45 IMPRESSION: No acute findings. Wrist X-Ray 12/29/22 15:45 IMPRESSION: No acute findings. Ankle X-Ray 12/29/22 16:26 IMPRESSION: No acute findings. Discharge Plan Discharge Patient Disposition: Home, Self-Care w Plan Readm Clinical Impression: Musculoskeletal pain Condition: Stable Prescriptions: No Action montelukast 10 mg tablet 10 mg PO DAILY Qty: 30 5RF fluticasone propionate [Flonase Allergy Relief] 50 mcg/actuation spray,suspension 1 spray intranasal BID Qty: 18 3RF Rx Instructions: administer into each nostril Advair Diskus 500-50 mcg/dose blister with device 1 inh inhalation BID Qty: 60 3RF prednisone 20 mg tablet 20 mg PO DAILY Qty: 5 0RF levofloxacin 500 mg tablet 500 mg PO DAILY Qty: 5 0RF Spiriva Respimat 2.5 mcg/actuation mist 2 puff inhalation DAILY Qty: 4 3RF albuterol sulfate 2.5 mg /3 mL (0.083 %) solution for nebulization 2.5 mg INHALATION Q4H PRN (Reason: shortness of breath or wheezing) Qty: 90 0RF albuterol sulfate [ProAir HFA] 90 mcg/actuation HFA aerosol inhaler 1 puff inhalation QID PRN (Reason: shortness of breath or wheezing) Qty: 8.5 5RF Zyrtec 10 mg capsule 10 mg PO DAILY PRN (Reason: allergy symptoms) Qty: 14 0RF loratadine 10 mg Tablet 10 mg PO DAILY Qty: 30 0RF Discharge Orders: Discharge ED (Routine); Ordered 12/29/22 Ordered By: Harish Ponce Referrals: Wayne Sauer DO [Primary Care Provider] - (Follow-up with regular physician for routine medication management and improvement of your mus culoskeletal pain. Take 1000 mg of Tylenol and 400 mg of Motrin at breakfast lunch and dinner. Use the sling only a few hours at a time to prevent adhesive capsulitis.) Discharge Diet: Usual diet Discharge Activity: Resume usual activity Coding Level of Care Code ED Acupressurist for Margot Burch
--- NOTE | 2022-12-29 15:45 | XRR_ITS ---
PROCEDURE INFORMATION: Exam: XR Right Elbow Exam date and time: 12/29/2022 3:51 PM Age: 37 years old Clinical indication: Injury or trauma; Blunt trauma (contusions or hematomas); Elbow; Right; Patient HX: Trauma ap due to pt's level of pain S/P fall TECHNIQUE: Imaging protocol: Radiologic exam of the Right elbow. Views: 1 or 2 views. COMPARISON: CR XR shoulder RT min 2V* [id number] 12/29/2022 2:28 PM FINDINGS: Bones/joints: Normal. Soft tissues: Normal. XR/XR elbow RT 2V [id number] IMPRESSION: No acute findings.
--- NOTE | 2022-12-29 15:45 | XRR_ITS ---
PROCEDURE INFORMATION: Exam: XR Right Wrist Exam date and time: 12/29/2022 4:31 PM Age: 37 years old Clinical indication: Injury or trauma; Fall; Blunt trauma (contusions or hematomas); Wrist; Right; Additional info: Pain S/P fall TECHNIQUE: Imaging protocol: Radiologic exam of the Right wrist. Views: 1 or 2 views. COMPARISON: CR (UP EXM, ) 12/29/2022 3:51 PM FINDINGS: Bones/joints: Normal. Soft tissues: Normal. XR/XR wrist RT 2V [id number] IMPRESSION: No acute findings.
--- NOTE | 2022-12-29 16:26 | XRR_ITS ---
PROCEDURE INFORMATION: Exam: XR Right Ankle Exam date and time: 12/29/2022 4:28 PM Age: 37 years old Clinical indication: Injury or trauma; Fall; Blunt trauma; Ankle; Right; Eval FX, fall, trauma TECHNIQUE: Imaging protocol: Radiologic exam of the Right ankle. Views: 1 or 2 views. COMPARISON: No relevant prior studies available. FINDINGS: Bones/joints: Normal. Soft tissues: Normal. XR/XR ankle RT 2V [id number] IMPRESSION: No acute findings.
== END 2022-12-29 17:16 | disposition home or self-care, planned readmission (81) ==
PROVIDERS: Emergency Provider General Practice; PCP Family Medicine
DX: M79.601 Pain in right arm (principal); Z87.891 Personal history of nicotine dependence; W18.30XA Fall on same level, unspecified, initial encounter
CPT/HCPCS: 73030; 73070; 73100; 73600; 99284

== ENCOUNTER → 2023-02-10 11:41 | Outpatient (BNVA) | payer MEDICAID, SELFPAY | PROVIDERS: PCP Family Medicine; Visit Provider Registered Nurse Neonatal Intensive Care | DX: J02.9 Acute pharyngitis, unspecified (principal) | CPT/HCPCS: 87071; 87880 ==

== ENCOUNTER 2023-02-20 07:33 | Day surgery (SDC) | payer MEDICAID, SELFPAY ==
[2023-02-19 09:47] VITALS: BMI 27.4
[2023-02-20] VITALS (8 sets, daily range): BP systolic 98–139; BP diastolic 55–91; PULSE 82–105; RESP 16–18; TEMP 36.3; O2SAT 96–100
[2023-02-20] MEDS: sodium chloride 0.9% 1,000 ML 30 ML IV ×2 (08:17→12:36)
--- NOTE | 2023-02-20 08:31 | ANES.PREANE2 ---
Pre-Anesthetic Assessment Height/Weight: Height 1.65 m Weight 74.843 kg Temp Pulse Resp BP Pulse Ox O2 Del Method 97.4 F L 82 18 123/71 97 Room Air 02/20/23 08:01 02/20/23 08:01 02/20/23 08:01 02/20/23 08:01 02/20/23 08:01 02/20/23 08:01 Preop Diagnosis: Adenomyosis, thickened endometrium, pelvic pain Operation Date: 02/20/23 09:00 Proposed Procedures p 87839 EGD [id number] Colonoscopy : K21.9, K92.2,R10.9(Not Applicable) - DO kashmir Castillo Colonoscopy(Not Applicable) - Bang Davenport DO Familial anesthetic complications: none Was Beta Karla taken within 24 hours: N/A Last intake: Intake Last Liquid Date 02/19/23 Last Liquid Time 18:00 Last Solid Date 02/18/23 Last Solid Time 19:00 Social Tobacco (Cannabis) last smoked 02/18 Exam alert, No oriented x 3, No clear to auscultation bilaterally and regular rate & rhythm Airway Submandibular: within normal limits Cervical ROM: within normal limits Mallampati: Class II Dentition: chipped (multiple poor dentition) Pulmonary Asthma (used INH this am.) recent dx of strep. 2 weeks prior abx completed no fevers currently. CV/HEM None reported None reported Hepatic None reported GI Gastroesophageal Reflux Disease hemorrhoids Metabolic None reported Musc/skel None reported Neuropsych Anxiety and Depression Anesthetic Plan ASA status: 2 Anesthesia: MAC Medications/Allergies Home Medications Medication Instructions Recorded Confirmed Last Taken Type loratadine 10 mg tablet 10 mg PO DAILY #30 tabs 08/01/22 02/19/23 02/17/23 Rx montelukast 10 mg tablet 10 mg PO DAILY #30 tabs 08/07/22 02/19/23 02/17/23 Rx fluticasone 500 mcg-salmeterol 50 1 inh inhalation BID #60 ea 09/03/22 02/19/23 02/17/23 Rx mcg/dose blistr powdr for inhalation (Advair Diskus) tiotropium bromide 2.5 2 puff inhalation DAILY #4 grams 11/30/22 02/20/23 02/20/23 Rx mcg/actuation mist for inhalation (Spiriva Respimat) cetirizine 10 mg capsule (Zyrtec) 10 mg PO DAILY PRN allergy 12/13/22 02/19/23 02/17/23 Rx symptoms #14 caps albuterol sulfate 2.5 mg/3 mL 2.5 mg (3 mL) inhalation Q4H PRN 01/23/23 02/20/23 02/20/23 Rx (0.083 %) solution for nebulization shortness of breath or wheezing #90 mL nebulizer See Rx Instructions .Route 01/23/23 02/19/23 02/19/23 Rx .COMPLEX asthma #1 unit pantoprazole 40 mg tablet,delayed 40 mg PO BID 6 weeks #84 tabs 02/08/23 02/19/23 02/17/23 Rx release (Protonix) albuterol sulfate 90 mcg/actuation 1 puff inhalation QID PRN 02/10/23 02/20/23 02/18/23 Rx aerosol inhaler (ProAir HFA) shortness of breath or wheezing #8.5 grams prednisone 20 mg tablet 40 mg PO DAILY 5 days #10 tabs 02/10/23 02/19/23 02/19/23 Rx fluticasone propionate 50 1 spray intranasal BID PRN 02/19/23 02/19/23 02/17/23 History mcg/actuation nasal allergies spray,suspension (Flonase Allergy Relief) hydrocortisone 2.5 % topical cream 1 applic CO QID PRN Hemorrhoids 02/19/23 02/20/23 Unknown History with perineal applicator (Anusol-HC) Allergies Allergy/AdvReac Type Severity Reaction Status Date / Time No Known Allergies Allergy Verified 02/19/23 09:41 Current Medications Generic Name Dose Route Start Last Admin Trade Name Freq PRN Reason Stop Dose Admin Sodium Chloride 1,000 mls @ 30 mls/hr 02/20/23 07:45 02/20/23 08:17 Sodium Chloride 0.9% IV 02/21/23 07:44 30 mls/hr .Q24H JUAN Administration PFSH Anesthesia Medical History Moderate persistent asthma No pertinent past medical history No hx: DM, HTN, thyroid, DVT/PE PCP: Dr. Jordan Surgical History H/O: section History of hysterectomy Family History Mother Lung disease COPD Other CAD (coronary artery disease) Cancer Hyperlipidemia Hypertension Psychiatric illness Stroke Denies family history of Diabetes Clotting disorder Dementia Chronic kidney disease (CKD) Suicide Anesthesia complication Bleeding disorder Social History Smoking and tobacco status: former smoker Quit status (tobacco): has quit using tobacco Year quit tobacco: 2015 Former quit date comment: less than 0.25 ppd x 1 year Female Reproductive History Spontaneous abortions: No Data Anesthesia Cardiac Studies: No Data to Display
--- NOTE | 2023-02-20 10:00 | W.PM.OPSUD ---
Surgery/Procedure H&P Update DATE OF PROCEDURE: February 20, 2023 DATE H&P PERFORMED: 02/08/23 H&P UPDATE INFORMATION: I have reviewed H&P completed within last 30 days, I have examined patient prior to procedure and No changes to prior documentation PREOP DIAGNOSIS: Hematochezia, gerd PLANNED PROCEDURE: Operation Date: 02/20/23 09:00 Proposed Procedures p 83899 EGD 85089 Colonoscopy : K21.9, K92.2,R10.9(Not Applicable) - DO kashmir Castillo Colonoscopy(Not Applicable) - Bang Davenport DO
[2023-02-20] MEDS: EPINEPHrine 1 mg/mL INJ XX (10:12)
--- NOTE | 2023-02-20 10:40 | XR_ITS ---
WS: [id number] EXAMINATION: XR chest 1V portable [id number] REASON FOR EXAM: secretions COMPARISON: 11/30/2022 ORDER DATE: 02/20/2023 11:16 AM TECHNIQUE: A single, portable frontal chest x-ray was obtained. X-RAY FINDINGS: The lungs are clear. Pleural spaces are clear. No pleural effusions or pneumothorax. Cardiomediastinal silhouette is normal. No evidence for pulmonary edema. Soft tissue and osseous structures are unremarkable. No tubes or lines are present. XR/XR chest 1V portable [id number] IMPRESSION: Unremarkable frontal portable chest x-ray.
[2023-02-20] MEDS: albuterol 2.5 mg/3 mL Neb INHALATION (11:06)
[2023-02-20] MEDS: meperidine 50 mg/mL INJ 12.5 MG IVP (11:38)
[2023-02-20] MEDS: HYDROmorphone 1 mg/mL INJ 1 mL IVP (12:27)
[2023-02-20] MEDS: ondansetron 2 mg/ML SDV 2 mL 4 MG IVP (12:40)
--- NOTE | 2023-02-20 15:21 | ANE.PACU2 ---
Inpatient post-anesthesia follow up: Airway intact: Yes Vital signs: Temperature 97.3 F Pulse Rate 97 Respiratory Rate 18 Blood Pressure 139/84 Pulse Oximetry 98 Oxygen Delivery Me thod Room Air Oxygen Flow Rate 2 Fraction of Inspir ed Oxygen Hydration adequate: Yes Nausea and vomiting: No Pain level: 2 Mental status: Baseline
== END 2023-02-20 13:34 | disposition home or self-care (01) ==
PROVIDERS: PCP Family Medicine; Visit Provider Surgery
PROC: 0DJD8ZZ Inspection of Lower Intestinal Tract, Via Natural or Artificial Opening Endoscopic (ICD-10-PCS; CPT 45378; 2023-02-20 09:00)
PROC: 0DJ08ZZ Inspection of Upper Intestinal Tract, Via Natural or Artificial Opening Endoscopic (ICD-10-PCS; CPT 43235; 2023-02-20 09:00)
PROC: (CPT 46221; 2023-02-20 09:00)
DX: K29.50 Unspecified chronic gastritis without bleeding (principal); K21.9 Gastro-esophageal reflux disease without esophagitis; R10.9 Unspecified abdominal pain; K64.8 Other hemorrhoids; K20.90 Esophagitis, unspecified without bleeding; Z87.891 Personal history of nicotine dependence; J45.40 Moderate persistent asthma, uncomplicated
CPT/HCPCS: 43236; 43239; 45398; 71045; 88305; 94640; 96374; 96375; J0171; J0330; J1170; J2175; J2250; J2405; J2704; J7030; J7613

== ENCOUNTER 2024-04-16 11:25 | Emergency (ER) | payer SELFPAY ==
[2024-04-16 11:30] VITALS: BP 112/70; PULSE 69; RESP 16; TEMP 36.6; O2SAT 99
--- NOTE | 2024-04-16 12:49 | ED_ITS ---
HPI - Skin/Abscess/Foreign Bdy General: Chief complaint: Skin/Abscess/Foreign Body Stated complaint: left hand pain, bite Time Seen by Provider: 04/16/24 11:28 Source: patient Mode of arrival: ambulatory Limitations: no limitations History of Present Illness: 38-year-old female who states that she w herbert up this morning and had some erythema to her left ring finger is concerned she may have been bitten by a bug overnight. She states she has some pain in that finger as well. She denies any known injuries denies any worse improving factors. Associated symptoms: Deny chills, fever(s), nausea or vomiting Review of Systems Const: Denies: fever(s), chills, body aches or change in appetite ENMT: Denies: throat pain or dental pain Card: Denies: chest pain Resp: Denies: dyspnea GI: Denies: abdominal pain, nausea, vomiting or diarrhea Musc: Reports: extremity pain; Denies: neck pain or back pain Skin/Breast: Reports: erythema; Denies: rash Neuro: Denies: headache(s) PFSH ED PFSH: Medical History No pertinent past medical history No hx: DM, HTN, thyroid, DVT/PE PCP: Dr. Jordan Moderate persistent asthma Surgical History History of hysterectomy H/O: section Family History Mother Lung disease COPD Other CAD (coronary artery disease) Cancer Hyperlipidemia Hypertension Psychiatric illness Stroke Denies family history of Diabetes Clotting disorder Dementia Chronic kidney disease (CKD) Suicide Anesthesia complication Bleeding disorder Social History Smoking and tobacco/nicotine status: former use of tobacco/nicotine Quit status (tobacco/nicotine): has quit using Year quit tobacco: 2016 Former quit date comment: less than 0.25 ppd x 1 year Substance/Drug Use: current Substance/Drug use frequency: few times a week Female Reproductive History: Spontaneous abortions: No Physical Exam Const: COMMON NORMALS: no acute distress, patient oriented x3 and healthy appearing HENMT: COMMON NORMALS: normocephalic and atraumatic HEAD & SCALP: normocephalic and atraumatic Neck/C-Spine: COMMON NORMALS: full ROM and supple Chest: COMMONS NORMALS: normal inspection of the chest Resp: COMMON NORMALS: normal respiratory effort Cardio: COMMON NORMALS: regular rate, regular rhythm and No murmurs present (Cardio) RATE: regular rate RHYTHM: regular rhythm Extremity: COMMON NORMALS: full ROM NARRATIVE EXTREMITY EXAM: Slight erythema noted to the left pinky finger on the dorsum aspect no fusiform swelling no signs of abscess no signs of flexor tendon infection Neuro: COMMON NORMALS: patient oriented x3, moves all extremities and no focal motor deficits Psych: COMMON NORMALS: mental status grossly normal, Normal thought process present and cooperative THOUGHT PROCESS: Normal thought process present Skin: COMMON NORMALS: no wounds Course Vital Signs: Vital signs: Vital Signs Temperature 97.9 F 04/16/24 11:30 Pulse Rate 69 04/16/24 11:30 Respiratory Rate 16 04/16/24 11:30 Blood Pressure 112/70 04/16/24 11:30 Pulse Oximetry 99 04/16/24 11:30 MDM - Skin/Abscess/Foreign Bdy Medicial Decision Making Patient presents here with likely yeast mild cellulitis to left ring finger no signs of any abscess or flexor tendon sheath infection. Will start her on Keflex she stable for discharge follow-up with PCP return if worsening. Medical Records I reviewed the patient's medical records. No radiology studies performed this visit Discharge Plan Discharge Patient Disposition: Home Clinical Impression: Cellulitis Qualifiers: Site of cellulitis: extremity Site of cellulitis of extremity: finger Condition: Stable Prescriptions: New cephalexin 500 mg capsule 500 mg PO TID 7 Days Qty: 21 0RF No Action montelukast 10 mg tablet 10 mg PO DAILY Qty: 30 5RF nebulizer See Rx Instructions .ROUTE .COMPLEX Qty: 1 0RF Rx Instructions: Nebulizer and setup naproxen 500 mg tablet 500 mg PO BID 30 Days Qty: 60 0RF oxycodone-acetaminophen 7.5-325 mg tablet 1 tab PO Q6H PRN (Reason: pain) 7 Days Qty: 28 0RF Advair Diskus 500-50 mcg/dose blister with device 1 inh inhalation BID Qty: 60 3RF Spiriva Respimat 2.5 mcg/actuation mist 2 puff inhalation DAILY Qty: 4 3RF pantoprazole [Protonix] 40 mg tablet,delayed release (DR/EC) 40 mg PO BID 42 Days Qty: 84 1RF Zyrtec 10 mg capsule 10 mg PO DAILY PRN (Reason: allergy symptoms) Qty: 14 0RF albuterol sulfate 2.5 mg /3 mL (0.083 %) solution for nebulization 2.5 mg INHALATION Q4H PRN (Reason: shortness of breath or wheezing) Qty: 90 0RF albuterol sulfate 90 mcg/actuation HFA aerosol inhaler See Rx Instructions .ROUTE .COMPLEX Qty: 18 0RF Dose Instruction: INHALE 1 PUFF BY MOUTH 4 TIMES DAILY NEEDED FOR SHORTNESS OF BREATH FOR WHEEZING Rx Instructions: INHALE 1 PUFF BY MOUTH 4 TIMES DAILY NEEDED FOR SHORTNESS OF BREATH FOR WHEEZING loratadine 10 mg Tablet 10 mg PO DAILY Qty: 30 0RF hydrocortisone [Anusol-HC] 2.5 % cream with perineal applicator 1 applic MT QID PRN (Reason: Hemorrhoids) Rx Instructions: may repeat in 10 days fluticasone propionate [Flonase Allergy Relief] 50 mcg/actuation spray,suspension 1 spray intranasal BID PRN (Reason: allergies) Rx Instructions: administer into each nostril oxycodone-acetaminophen 7.5-325 mg tablet 1 tab PO Q6H PRN (Reason: pain) Qty: 28 0RF Discharge Orders: Discharge ED (Routine); Ordered 04/16/24 Ordered By: Ava Chinchilla Referrals: Wayne Sauer DO [Primary Care Provider] - 1-3 days Discharge Diet: Advance as tolerated Discharge Activity: Resume usual activity Patient Instructions: Cellulitis (ED) Coding Level of Care 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
[2024-04-16] MEDS: HYDROcodone-acetaminophen 5-325 mg Tablet 1 TAB PO (13:01)
[2024-04-16] MEDS: cephALEXin 500 mg Capsule PO (13:02)
[2024-04-16 13:11] VITALS: BP 113/68; PULSE 67; RESP 16; TEMP 36.6; O2SAT 100
== END 2024-04-16 13:03 | disposition home or self-care (01) ==
PROVIDERS: Emergency Provider Emergency Medicine; PCP Family Medicine
DX: L03.012 Cellulitis of left finger (principal); Z87.891 Personal history of nicotine dependence
CPT/HCPCS: 99283

== ENCOUNTER 2024-05-07 08:59 | Emergency (ER) | payer SELFPAY ==
--- NOTE | 2024-05-07 09:06 | XR_ITS ---
WS: [id number] Exam: XR shoulder LT min 2V* [id number] Date/Time of Exam: 05/07/2024 9:23 AM Reason For Exam: pain No acute fracture or dislocation. The joints are preserved. Normal soft tissues. XR/XR shoulder LT min 2V* [id number] IMPRESSION: 1. Negative LEFT shoulder.
[2024-05-07 09:16] VITALS: BP 147/82; PULSE 105; RESP 17; TEMP 36.6; O2SAT 98; BMI 26.6
--- NOTE | 2024-05-07 09:31 | CT_ITS ---
WS: [id number] CT CERVICAL SPINE TECHNIQUE: Noncontrast CT of the cervical spine with coronal and sagittal reformatted images. CLINICAL INFORMATION: cervicalgia w L arm radiculr pain COMPARISON: None. DLP: 154.[address] scans at [facility] use at least one of these dose optimization techniques: automated e xposure control; mA and/or kV adjustment per patient size (includes targeted exams where dose is matc hed to clinical indication); or iterative reconstruction. FINDINGS: Straightening of the cervical lordosis. Mild cervical curve. No acute fractures. No high-grade centra l canal stenosis. C2-C3: Normal. C3-C4: Normal. C4-C5: Mild disc osteophytic ridging. Mild LEFT foraminal narrowing. Spinal canal and RIGHT foramen a re patent. Mild facet arthropathy. C5-C6: Disc osteophytic ridging with uncovertebral joint hypertrophy. Spinal canal and foramen are pa tent. Mild facet arthropathy. C6-C7: Endplate osteophytic ridging with mild LEFT greater than RIGHT bony foraminal narrowing. Spina l canal appears patent. Mild arthropathy. C7-T1: No significant disc bulging. Spinal canal and foramen are patent. Visualized posterior nasopharynx: Normal. Prevertebral soft tissues: Normal. CT/CT cervical spin wo con* [id number] IMPRESSION: 1. No significant central canal stenosis. 2. Mild LEFT bony foraminal narrowing at C4-5 and LEFT C6-7 with uncovertebral joint hypertrophy. 3. No other acute findings. 4. MRI cervical spine would be more sensitive for radicular symptoms and nerve root anatomic detail 5. Nodular LEFT thyroid. Recommend follow-up ultrasound on an elective basis.
--- NOTE | 2024-05-07 09:43 | ED_ITS ---
HPI - Extremity Problem General: Chief complaint: Extremity Injury, Upper Stated complaint: picked up basket, left shoulder pain Time Seen by Provider: 05/07/24 09:05 Source: patient Mode of arrival: ambulatory History of Present Illness: 38-year-old female presents emergency ro om complaining of left shoulder pain. She went to lift up a basket while at work and felt shoulder pain and pain radiating into the shoulder from the neck. She has difficult time moving her neck whenever she rotates flexes or extends she has pain that shoots into the shoulder. No previous neck or shoulder injury no previous surgeries to either a reas. No other recent traumas or falls. [facility] ED PFSH: Medical History No pertinent past medical history No hx: DM, HTN, thyroid, DVT/PE PCP: Dr. Jodran Moderate persistent asthma Surgical History History of hysterectomy H/O: section Family History Mother Lung disease COPD Other CAD (coronary artery disease) Cancer Hyperlipidemia Hypertension Psychiatric illness Stroke Denies family history of Diabetes Clotting disorder Dementia Chronic kidney disease (CKD) Suicide Anesthesia complication Bleeding disorder Social History Smoking and tobacco/nicotine status: former use of tobacco/nicotine Quit status (tobacco/nicotine): has quit using Year quit tobacco: 2016 Former quit date comment: less than 0.25 ppd x 1 year Substance/Drug Use: current Substance/Drug use frequency: few times a week Female Reproductive History: Spontaneous abortions: No Course Vital Signs: Vital signs: Vital Signs Temperature 97.8 F 05/07/24 09:16 Pulse Rate 105 H 05/07/24 09:16 Respiratory Rate 17 05/07/24 09:16 Blood Pressure 147/82 05/07/24 09:16 Pulse Oximetry 98 05/07/24 09:16 Oxygen Delivery Me thod Room Air 05/07/24 09:16 MDM - Extremity (Nontraumatic) Medical Decision Making Foraminal stenosis on the CT of her neck. Based on exam and her history and degree of pain I believe this is more cervical radiculopathy. She did get some relief from medications given will discharge home after being given Dilaudid half a milligram. Discharge home with steroid taper diclofenac and tizanidine MRI and follow-up with orthopedic spine surgery Medical Records I reviewed the patient's medical records. Lab Data I reviewed the patient's lab results. Radiology Impressions Shoulder X-Ray 05/07/24 09:06 IMPRESSION: 1. Negative LEFT shoulder. Cervical Spine CT 05/07/24 09:31 IMPRESSION: 1. No significant central canal stenosis. 2. Mild LEFT bony foraminal narrowing at C4-5 and LEFT C6-7 with uncovertebral joint hypertrophy. 3. No other acute findings. 4. MRI cervical spine would be more sensitive for radicular symptoms and nerve root anatomic detail 5. Nodular LEFT thyroid. Recommend follow-up ultrasound on an elective basis. All radiology interpretation(s) finalized by discharge Discharge Plan Discharge Patient Disposition: Home Clinical Impression: Cervical radiculopathy Condition: Stable Prescriptions: New tizanidine 4 mg tablet 4 mg PO Q6H PRN (Reason: muscle spasticity) Qty: 20 0RF Rx Instructions: do not exceed 3 doses per 24 hrs hydrocodone-acetaminophen 5-325 mg tablet 1 tab PO Q6H PRN (Reason: pain) Qty: 10 0RF prednisone 20 mg tablet 20 mg PO TID Qty: 15 0RF Rx Instructions: 1 p.o. 3 times daily x3 days, 1 p.o. twice daily x2 days, 1 p.o. daily x2 days diclofenac sodium 75 mg tablet,delayed release (DR/EC) 75 mg PO Q12H PRN (Reason: pain) Qty: 20 0RF No Action montelukast 10 mg tablet 10 mg PO DAILY Qty: 30 5RF buspirone 10 mg tablet 10 mg PO TID Qty: 90 2RF loratadine 10 mg Tablet 10 mg PO DAILY Qty: 30 0RF fluticasone propionate [Flonase Allergy Relief] 50 mcg/actuation spray,suspension 1 spray intranasal BID PRN (Reason: allergies) Rx Instructions: administer into each nostril albuterol sulfate 90 mcg/actuation HFA aerosol inhaler 1 puff inhalation QID PRN (Reason: Shortness Of Breath Or Wheezing) Discharge Orders: Discharge ED (Routine); Ordered 05/07/24 Ordered By: Ronald Peterson Referrals: Wayne Sauer, [Primary Care Provider] - Discharge Diet: Usual diet Discharge Activity: Limit activity as instructed Patient Instructions: Cervical Radiculopathy (ED), Opioid Safety, Pain Management Activity Restrictions/Additional Instructions: Thank you for choosing [facility] for your healthcare needs today. It is very important that you follow up as instructed or that you return to the Emergency Department should you have concerns or if your condition changes or worsens in any way. You are seen today for pain in your left shoulder and arm. On exam and listening to your medical history that this sounds as if it is a cervical radiculopathy patient. This is due to a nerve irritation or impingement at the level of the neck that radiates the pain into the arm. You were given pain medication and steroids and muscle relaxer in the emergency room. He will be discharged home with oral steroid taper to begin tomorrow muscle relaxer pain medication anti-inflammatory you can use as needed. Avoid heavy lifting and avoid working above shoulder level. Case management will make arrangements for you to have an MRI of your cervical spine and follow-up with the orthopedic surgeon. Coding Level of Care Code ED Sign Letterer for Margot Burch
[2024-05-07] MEDS: ondansetron 2 mg/ML SDV 2 mL 4 MG IVP (09:46)
[2024-05-07] MEDS: morphine 4 mg/mL SDV 1 mL IVP (09:46)
[2024-05-07] MEDS: orphenadrine 30 mg/mL Inj 2 mL 60 MG IV (09:47)
[2024-05-07] MEDS: dexamethasone 10 mg/mL INJ IV (09:48)
[2024-05-07] MEDS: ketorolac 30 mg/mL INJ IVP (09:49)
[2024-05-07] MEDS: HYDROmorphone 1 mg/mL INJ 1 mL 0.5 MG IVP (11:48)
--- NOTE | 2024-05-07 23:02 | DCPLANNER ---
Message sent to Ortho for follow up - Left arm cervical radiculopathy-
== END 2024-05-07 12:15 | disposition home or self-care (01) ==
PROVIDERS: Emergency Provider Family Medicine; PCP Family Medicine
DX: M54.12 Radiculopathy, cervical region (principal); Z87.891 Personal history of nicotine dependence
CPT/HCPCS: 72125; 73030; 96374; 96375; 99285; J1100; J1170; J1885; J2270; J2360; J2405

== ENCOUNTER 2024-06-01 06:43 | Outpatient (CLI) | payer SELFPAY ==
--- NOTE | 2024-06-01 06:57 | MR_ITS ---
WS: [id number] MRI CERVICAL SPINE NONCONTRAST TECHNIQUE: Sagittal T1, T2 and STIR imaging. Axial T2, gradient, and fiesta imaging. CLINICAL INFORMATION: CERVICAL RADICULOPATHY COMPARISON: CT 05/07/2024 FINDINGS: Some images degraded by patient motion. Straightening of the normal cervical lordosis. Cord signal is normal. C2-C3: Normal. C3-C4: Mild disc bulging. Mild facet arthropathy. Spinal canal and foramen are patent. C4-C5: Mild disc osteophyte ridging. Uncovertebral joint hypertrophy. Mild facet arthropathy. Mild LE FT bony foraminal narrowing. C5-C6: Slight anterolisthesis. Disc osteophyte complex with uncovertebral joint hypertrophy. Foramen are patent. C6-C7: Mild disc osteophyte complex with endplate ridging. Mild facet arthropathy. Mild LEFT and no s ignificant RIGHT foraminal narrowing. Spinal canal is patent. C7-T1: Mild to moderate LEFT proximal C7-T1 foraminal narrowing. RIGHT foramen is patent. Spinal herve l is patent. Visualized brain stem structures: Normal. Prevertebral soft tissues: Normal. MR/MR cervical spin wo con* [id number] IMPRESSION: 1. Straightening of the normal cervical lordosis. Cord signal is normal. 2. Mild LEFT C4-5 and LEFT C6-7 bony foraminal narrowing worse at C6-7. 3. Mild to moderate LEFT C7-T1 proximal bony foraminal narrowing. 4. Slight anterolisthesis C5 on C6 and C6 on C7.
== END 2024-06-01 06:44 | disposition home or self-care (01) ==
LOC: RAD 06:43
PROVIDERS: PCP Family Medicine; Visit Provider Family Medicine
DX: M54.12 Radiculopathy, cervical region (principal); M50.31 Other cervical disc degeneration, high cervical region; M48.02 Spinal stenosis, cervical region; M25.78 Osteophyte, vertebrae; M47.812 Spondylosis without myelopathy or radiculopathy, cervical region; M48.03 Spinal stenosis, cervicothoracic region
CPT/HCPCS: 72141

== ENCOUNTER 2025-06-01 18:26 | Emergency (ER) | payer SELFPAY ==
--- OUTSIDE RECORDS SUMMARY | 2023-06-04 05:45 | XMS_ITS | Continuity of Care Document ---
Author Organization [facility] Address [id number] [address] Phone Care Team Providers Care Jewel Bearing Driller Name Role Phone India Concepcion LCSW Unavailable Unavailabl e Allergies, Adverse Reactions, Alerts Substance Reaction Status Criticality No Known Allergies Active No Inform ation Medications Medication Instructions Dosage Effective Dates (start - stop) Status Comments Premarin 0.625 mg/gram vaginal cream insert 0.5 applicatorful by vaginal route every day cyclically, 3 weeks on and 1 week off 1 G - Active venlafaxine ER 37.5 mg capsule,extended release 24 hr take 1 capsule by oral route every day with food 37.5 MG - Active ALBUTEROL SULFATE (unknown strength) inhale 3 milliliter by inhalation route 3- 4 times every day via nebulizer Not Available - Active ADVAIR DISKUS (unknown strength) inhale 1 puff by inhalation route 2 times every day in the morning and evening approximately 12 hours apart Not Available - Active Procedures Procedure Date PSYTX PT&/FAMILY 30 MINUTES SBIRT - AUDIT/DAST, 15-30 MIN 3 PREV VISIT, NEW, AGE 18-39 URINE TEST DETECT AGNT MULT, DNA, AMPLI (CHLAMYDIA/ GONNORRHEA/TRICHOMONAS) TRICHOMONAS VAGINALIS AMPLIF Advance Directives Directive Yes / No Effective Date File Name No Information Encounters Encounter Description Practice Location Reason(s) For Visit Diagnoses Date Provider Providers Copied on Encounter PSYTX PT&/FAMILY 30 MINUTES [facility], [id number]- [facility], [place], [place], [id number], [place] tel:[phone] [facility] Major depressive disorder non-psychotic recurrent, severe 3 Jamey Osborne. [address], [place], [id number], [place]. tel:[phone] Referring Provider: India Concepcion, [address] [place], [address] . tel:[phone] PREV VISIT, NEW, AGE 18-39 [facility], [id number] [place], [place], [id number], [place] tel:[phone] [facility] annual exam (chief complaint) Encounter for gynecological examination (general) (routine) with abnormal findingsPelvic pain in femaleSurgical menopause, symptomaticEncou nter for test, result unknownEncntr screen for infections w sexl mode of transmiss 3 Fernando Jain. [address] [place] [address], [address], [place]. tel:[phone] Referring Provider: Susy King , [address] [place] [address], [address]. tel:[phone] Family History Family Member Type Diagnosis Age At Onset No Information Payers Payer name Insurance type Covered democrat ID Susana angeles(s) Ken [facility] [id number] Social History Type Description Quantity Date Captured Comments Alcohol Use Details Unknown Caffeine Use Details Unknown Tobacco Use Status No Information Smoking Status No Information Sex Female Gender Identity Female Chief Complaint And Reason For Visit No Information Reason For Referral Reason For Referral No Information History Of Present Illness Encounter Date Complaint History Of Prese nt Illness annual exam The client state s using hysterectomy for control. Negative for: breast discharge, breast lump(s) and breast pain. Menopausal symptoms positive for: hot flashes, insomnia, night sweats and vaginal dryness. Associated symptoms include anxiety, decreased libido, depression, dyspareunia, sexual dysfunction and sleep disturbances. Pertinent negatives include urinary urgency, vaginal discharge and vaginal itching.The client states Client's exercise level is sedentary. The client does not use tobacco. Additional information: Diagnosed with endometriosis 3 months prior to hysterectomy in 12/2021 with laparoscopic biopsy. Had pelvic pain and heavy bleeding prior to surgery. Reports having a biopsy in clinic of right hip area twice and was told it was endometrial tissue. This was done in [place]. ROSALBA obtained. Reports having increasing pain at the same area about 3 months ago that is cramping and at the same time each month. Hx of abnormal PAPs with biopsies but unsure of diagnosis. Does not recall having a LEEP. Depression has worsened in the last 6 months. States she is tired all the time some days I don't want to get out of bed cant stop crying for no reason at all . Having vaginal dryness, hot flashes, insomnia, mood fluctuations and dyspareunia. No hormone replacement after hysterectomy. Had been taking Ashwagandha supplement but stopped about 2 months ago. Took antidepressants as a teen. MGM with breast cancer in 80's. No family history of uterine, ovarian or cervical cancer. No personal or family hx of DVT or bleeding disorders, denies any tobacco use, denies any migraine with aura. . Functional Status Date Functional Assessmen t No Information Instructions Date Instruction Additional Infor jude -ROSALBA obtained-Discus sed starting hormone replacement therapy once bilateral oophorectomy was confirmed with operative note-Discussed risk vs benefit of hormone replacement therapy and patient desires this pending op note. -Met with today with plan to start counseling for significant history of trauma Related to Surgical menopause, symptomatic -ROSALBA obtained and wi ll follow up depending on what clinic and op notes show-Discussed that the pain is not likely to be due to endometriosis if bilateral oophorectomy was done at time of hysterectomy -STI testing done today-Will follow up after records are obtained Related to Pelvic pain in female -Clinical breast exa m and pelvic exam today-Recommend healthy balanced diet-Recommend aerobic exercise 30 minutes a day for 5 days a week-Discussed breast self awareness -Return to clinic yearly for WWE Related to Encounter for gynecological examination (general) (routine) with abnormal findings Assessments Type Assessment Date assessment Major depressive disorder non-ps ychotic recurrent, severe Patient Care Teams Name Effective Dates (start - stop) Status Members No Information
[2025-06-01 18:55] VITALS: PULSE 73; RESP 16; TEMP 36.3; O2SAT 97
[2025-06-01 18:59] VITALS: BP 131/79
--- NOTE | 2025-06-01 19:18 | ED_ITS ---
HPI - Dental/Oral 2 General: Chief complaint: Dental/Oral Stated complaint: tooth ache, mouth pain Time Seen by Provider: 06/01/25 18:36 History of Present Illness: Patient is a 39-year-old female, presents to the emergency room with increasing dental pain x 2 days. Initially, patient had pain 2 months ago, and this improved after antibiotics. She then started having pain 2 days ago, and called dentist yesterday for an appointment on , 2 more days from now. Denies fever or inability to open her mouth. She has been utilizing ibuprofen at home for pain. Associated symptoms: Denies fever(s) Related Data Home Medications ?Medication ?Instructions ?Recorded ?Confirmed fluticasone propionate 50 1 spray intranasal BID PRN 0 02/19/23 05/07/24 mcg/actuation nasal allergies spray,suspension (Flonase Allergy Relief) Previous Rx's ?Medication ?Instructions ?Recorded loratadine 10 mg tablet 10 mg PO DAILY #30 tabs 07/13 12/02 montelukast 10 mg tablet 10 mg PO DAILY #30 tabs 07/13 06/01 buspirone 10 mg tablet 10 mg PO TID #90 tabs diclofenac sodium 75 mg 75 mg PO Q12H PRN pain #20 t abs 05/07/24 tablet,delayed release hydrocodone 5 mg-acetaminophen 325 1 tab PO Q6H PRN pa in #10 tabs 05/07/24 mg tablet prednisone 20 mg tablet 20 mg PO TID #15 tabs tizanidine 4 mg tablet 4 mg PO Q6H PRN muscle spast icity 05/07/24 #20 tabs albuterol sulfate 90 mcg/actuation See Rx Instructions .Route 12/24/24 aerosol inhaler .COMPLEX #18 grams amoxicillin 500 mg capsule 500 mg PO BID 10 days #20 c aps 06/01/25 ibuprofen 800 mg tablet 800 mg PO Q8H PRN pain #30 t abs 06/01/25 Allergies Allergy/AdvReac Type Severity Reaction Status Date / Time No Known Allergies Allergy Verified 05/07/24 09:21 Review of Systems 2 General: Reports: 10 or more systems reviewed and unremarkable except in HPI and below Const: Denies: fever(s) or chills Eyes: Denies: change in vision or blurry vision ENMT: Reports: mouth pain, dental pain and halitosis; Denies: throat pain, hoarseness, oral sores or bleeding gums Card: Denies: chest pain or palpitations Resp: Denies: dyspnea or non-productive cough GI: Denies: abdominal pain, nausea or vomiting : Denies: flank pain or dysuria Musc: Denies: neck pain or extremity pain Skin/Breast: Denies: rash or pruritus Neuro: Reports: headache(s); Denies: numbness in extremities or weakness in extremities Psych: Denies: anxiety or depression Fabio/Lymph: Denies: easy bruising or easy bleeding All/Imm: Denies: urticaria or throat swelling PFSH ED 2 PFSH: Medical History (Updated 06/01/25 @ 19:19 by ASAD Menchaca) No pertinent past medical history No hx: DM, HTN, thyroid, DVT/PE PCP: Dr. Jordan Moderate persistent asthma Surgical History History of hysterectomy H/O: section Family History Mother Lung disease COPD Other CAD (coronary artery disease) Cancer Hyperlipidemia Hypertension Psychiatric illness Stroke Denies family history of Diabetes Clotting disorder Dementia Chronic kidney disease (CKD) Suicide Anesthesia complication Bleeding disorder Social History Smoking and tobacco/nicotine status: former use of tobacco/nicotine Quit status (tobacco/nicotine): has quit using Year quit tobacco: 2015 Former quit date comment: less than 0.25 ppd x 1 year Substance/Drug Use: current Substance/Drug use frequency: few times a week Female Reproductive History: Spontaneous abortions: No Physical Exam 2 Const: COMMON NORMALS: patient oriented x3, alert and well nourished G ENERAL APPEARANCE: cooperative ORIENTATION/CONSCIOUSNESS: Yes awake HENMT: COMMON NORMALS: normocephalic, atraumatic, TM's normal bilaterally and Normal external nose present HEAD & SCALP: normocephalic and atraumatic F MELODY & SINUS: sinus tenderness maxillary NOSE: Normal external nose present and Normal nares present; no Nasal discharge present TYMPANIC MEMBRANE: TM's normal bilaterally M OUTH: lip normal and tongue normal TEETH & GINGIVA: Yes caries and Yes poor dentition TEETH & GINGIVA IMAGES: 1. pain, partial fracture, fullness without induration THROAT: posterior oropharynx normal, tonsils normal and uvula midline OTHER: no trismus Eye: COMMON NORMALS: Equal, round and reactive pupils present PUPIL: Yes Equal, round and reactive pupils present Neck/C-Spine: COMMON NORMALS: full ROM and no lymphadenopathy GENERAL: Yes normal visual inspection, Yes trachea midline and No anterior neck swelling Lymph: LYMPHATIC: no lymphadenopathy noted Resp: COMMON NORMALS: normal respiratory effort and clear to auscultation bilaterally AUSCULTATION: clear to auscultation bilaterally Cardio: COMMON NORMALS: regular rate and regular rhythm RATE: regular rate RHYTHM: regular rhythm GI: COMMON NORMALS: Normal to inspection, nondistended, normoactive bowel sounds present : COMMON NORMALS: Yes no CVA tenderness BLADDER/KIDNEY EXAM: Yes no CVA tenderness Back/Pelvis: COMMON NORMALS: no CVA tenderness Extremity: COMMON NORMALS: normal to inspection, full ROM and capillary refill normal Neuro: COMMON NORMALS: patient oriented x3 SENSORIUM/ORIENTATION: Yes alert Psych: COMMON NORMALS: mental status grossly normal and Normal thought process present THOUGHT PROCESS: Normal thought process present Course 2 Vital Signs: Vital signs: Vital Signs Temperature 97.4 F L 06/01/25 18:55 Pulse Rate 73 06/01/25 18:55 Respiratory Rate 16 06/01/25 18:55 Blood Pressure 131/79 06/01/25 18:59 Pulse Oximetry 97 06/01/25 18:55 Oxygen Delivery Me thod Room Air 06/01/25 18:55 MDM - Dental/Oral Medical Decision Making Patient is a 39-year-old female with dental carry, partial dental fracture, dental pain, fullness without induration. She is able to open her mouth, however has maxillary sinus tenderness on the right side. Discussed options with patient. She has an appointment with dental on . She will be placed on amoxicillin, given Toradol shot x 1, and amoxicillin. Warning regarding abdomen pain/ulcers was given to patient, as well as prophylactic probiotic versus active culture yogurt, and eating a soft diet. She will utilize Tylenol for pain, and would like ibuprofen 800 mg for pain and inflammation. As well gave cautions to patient regarding abdominal ulcers. No radiology studies performed this visit Discharge Plan Discharge Patient Disposition: Home Clinical Impression: Toothache, Dental caries Fracture of tooth Qualifiers: Encounter type: initial encounter Fracture type: open Qualified Code(s): S 02.5XXB - Fracture of tooth (traumatic), initial encounter for open fracture Condition: Stable Prescriptions: New ibuprofen 800 mg tablet 800 mg PO Q8H PRN (Reason: pain) Qty: 30 0RF amoxicillin 500 mg capsule 500 mg PO BID 10 Days Qty: 20 0RF No Action montelukast 10 mg tablet 10 mg PO DAILY Qty: 30 5RF buspirone 10 mg tablet 10 mg PO TID Qty: 90 2RF albuterol sulfate 90 mcg/actuation HFA aerosol inhaler See Rx Instructions .ROUTE .COMPLEX Qty: 18 0RF Dose Instruction: INHALE 1 PUFF BY MOUTH 4 TIMES DAILY NEEDED FOR SHORTNESS OF BREATH FOR WHEEZING Rx Instructions: INHALE 1 PUFF BY MOUTH 4 TIMES DAILY NEEDED FOR SHORTNESS OF BREATH FOR WHEEZING loratadine 10 mg Tablet 10 mg PO DAILY Qty: 30 0RF fluticasone propionate [Flonase Allergy Relief] 50 mcg/actuation spray,suspension 1 spray intranasal BID PRN (Reason: allergies) Rx Instructions: administer into each nostril tizanidine 4 mg tablet 4 mg PO Q6H PRN (Reason: muscle spasticity) Qty: 20 0RF Rx Instructions: do not exceed 3 doses per 24 hrs hydrocodone-acetaminophen 5-325 mg tablet 1 tab PO Q6H PRN (Reason: pain) Qty: 10 0RF prednisone 20 mg tablet 20 mg PO TID Qty: 15 0RF Rx Instructions: 1 p.o. 3 times daily x3 days, 1 p.o. twice daily x2 days, 1 p.o. daily x2 days diclofenac sodium 75 mg tablet,delayed release (DR/EC) 75 mg PO Q12H PRN (Reason: pain) Qty: 20 0RF Discharge Orders: Discharge ED (Routine); Ordered 06/01/25 Ordered By: Gina John Discharge Diet: Soft Mechanical Discharge Activity: Limit activity as instructed Patient Instructions: Toothache (ED), Patient Portal & Michelle Instructions Activity Restrictions/Additional Instructions: Continue with your dental appointment on . Return to ED if you are unable to open your mouth, worsening pain, redness, fullness, or temperature greater than 100.4 ?F Take antibiotics as prescribed. As discussed, either eat active culture yogurt or take a probiotic to avoid infectious diarrhea As we discussed, on your ibuprofen sent to the pharmacy, be careful with your stomach. Consider taking Pepcid/famotidine generic [id number] to avoid gastric ulcer. Ultimately, this can only be fixed by dental care/root canal/removing the tooth due to the pain. Take care of yourself, eat a soft diet, drink plenty of fluids. Stand Alone Forms: Work/School Release Print Language: Citizen Of [place] Coding Level of Care Code ED Associate Software Application Engineer for Margot Burch
[2025-06-01] MEDS: HYDROcodone-acetaminophen 5-325 mg Tablet 1 TAB PO (19:24)
== END 2025-06-01 19:28 | disposition home or self-care (01) ==
PROVIDERS: Emergency Provider Physician Assistant
DX: K08.89 Other specified disorders of teeth and supporting structures (principal); K02.9 Dental caries, unspecified; S02.5XXB Fracture of tooth (traumatic), initial encounter for open fracture; X58.XXXA Exposure to other specified factors, initial encounter; Z87.891 Personal history of nicotine dependence
CPT/HCPCS: 96372; 99284; J1885; J9999

== ENCOUNTER 2025-09-22 09:28 | Emergency (ER) | payer SELFPAY ==
[2025-09-22 09:39] VITALS: BP 114/71; PULSE 100; RESP 22; TEMP 36.7; O2SAT 95
--- NOTE | 2025-09-22 09:40 | XR_ITS ---
WS: [id number] Exam: XR chest 1V portable [id number] Date/Time of Exam: 09/22/2025 9:44 AM Reason For Exam: dyspnea/cough Comparison 02/20/2023. Lungs are fully inflated and clear. Normal cardiomediastinal silhouette and regional bony elements. No pleural effusions. XR/XR chest 1V portable [id number] IMPRESSION: 1. Negative chest.
[2025-09-22 10:17] LABS: Hematocrit 40.7 % (36-47); Hemoglobin 14.00 g/dL (11.27-16.99); Mean Corpuscular HGB Conc 34.4 g/dL (30-55); Mean Corpuscular Hemoglobin 31.1 pg (27-33); Mean Corpuscular Volume 90.4 fl (85-98); Nucleated Red Blood Cells % 0 %; Platelet Count 234 10^3/cmm (157-399); Red Blood Count 4.50 10^6/uL (3.85-5.65); White Blood Count 6.79 10^3/uL (3.29-11.43)
--- NOTE | 2025-09-22 10:34 | W.ED.SOB ---
HPI - SOB/Dyspnea General: Chief Complaint: Shortness of Breath/Dyspnea Stated Complaint: SOB Sore Throat Time Seen by Provider: 09/22/25 09:52 History of Present Illness: HPI Narrative: 40-year-old female presents emergency room with complaint of sore throat shortness of breath wheezing and rhonchi rapid heart rate chest congestion nonproductive cough for the last few days subjective fever. No vomiting no diarrhea. Moderate response to nebulizers and albuterol inhaler at home. Associated symptoms: Deny abdominal pain, chest pain or fever(s) Related Data Previous Rx's ?Medication ?Instructions ?Recorded ipratropium 0.5 mg-albuterol 3 mg 3 ml inhalation Q4H PRN shortness 09/22/25 (2.5 mg base)/3 mL nebulization of breath or wheezing #90 mL soln methylprednisolone 4 mg tablets in See Rx Instructions PO .COMPLEX 09/22/25 a dose pack (Medrol (Carlitos)) #21 ea Allergies Allergy/AdvReac Type Severity Reaction Status Date / Time No Known Allergies Allergy Verified 05/07/24 09:21 Review of Systems Const: Denies: fever(s) or chills Card: Denies: chest pain Resp: Reports: dyspnea and wheezing GI: Denies: abdominal pain : Denies: dysuria, urinary frequency or urinary urgency Musc: Denies: neck pain or back pain Skin/Breast: Denies: rash PFSH ED PFSH: Medical History No pertinent past medical history No hx: DM, HTN, thyroid, DVT/PE PCP: Dr. Jordan Moderate persistent asthma Surgical History History of hysterectomy H/O: section Family History Mother Lung disease COPD Other CAD (coronary artery disease) Cancer Hyperlipidemia Hypertension Psychiatric illness Stroke Denies family history of Diabetes Clotting disorder Dementia Chronic kidney disease (CKD) Suicide Anesthesia complication Bleeding disorder Social History Smoking and tobacco/nicotine status: former use of tobacco/nicotine Quit status (tobacco/nicotine): has quit using Year quit tobacco: 2016 Former quit date comment: less than 0.25 ppd x 1 year Substance/Drug Use: current Substance/Drug use frequency: few times a week Female Reproductive History: Spontaneous abortions: No Physical Exam Const: COMMON NORMALS: no acute distress GENERAL APPEARANCE: cooperative and comfortable ORIENTATION/CONSCIOUSNESS: Yes awake, Yes oriented to person, Yes oriented to place and Yes oriented to time HENMT: COMMON NORMALS: normocephalic, atraumatic and hearing grossly normal bilaterally HEAD & SCALP: normocephalic and atraumatic Resp: COMMON NORMALS: normal respiratory effort, No retractions and No use of accessory muscles AUSCULTATION: wheezes Cardio: COMMON NORMALS: regular rate, regular rhythm and No murmurs present (Cardio) RATE: regular rate RHYTHM: regular rhythm GI: COMMON NORMALS: Soft to palpation and No hepatosplenomegaly present AUSCULTATION: Yes normoactive bowel sounds PALPATION: Yes Soft to palpation, No Tenderness to palpation present (GI), No Guarding due to palpation present (GI) and Yes No hepatosplenomegaly present Extremity: COMMON NORMALS: normal to inspection, capillary refill normal, no clubbing, cyanosis or edema, no calf tenderness and no pedal edema Neuro: SENSORIUM/ORIENTATION: Yes oriented to person, Yes oriented to place and Yes oriented to time Skin: COMMON NORMALS: no rashes or lesions noted GENERAL SKIN EXAM: no rashes or lesions noted Course Vital Signs: Vital signs: Vital Signs Temperature 98.0 F 09/22/25 09:39 Pulse Rate 93 09/22/25 11:04 Respiratory Rate 16 09/22/25 11:01 Blood Pressure 103/78 09/22/25 11:00 Pulse Oximetry 93 09/22/25 11:01 Oxygen Delivery Me thod Room Air 09/22/25 11:01 MDM - SOB/Dyspnea Medical Decision Making Improved after nebulizers. Lungs are cleared. Reviewed laboratory tests white count normal flu COVID RSV negative chest x-ray unremarkable treat for exacerbation asthma. Discharged home with steroid taper albuterol/ipratropium bromide nebs Medical Records I reviewed the patient's medical records. Lab Data I reviewed the patient's lab results. 09/22/25 10:09 Labs/Radiology: Radiology Impressions Chest X-Ray 09/22/25 09:40 IMPRESSION: 1. Negative chest. Laboratory Results WBC 6.79 10^3/uL (3.29-11.43) 09/22/25 10:09 RBC 4.50 10^6/uL (3.85-5.65) 09/22/25 10:09 Hgb 14.00 g/dL (11.27-16.99) 09/22/25 10:09 Hct 40.7 % (36-47) 09/22/25 10:09 MCV 90.4 fl (85-98) 09/22/25 10:09 MCH 31.1 pg (27-33) 09/22/25 10:09 MCHC 34.4 g/dL (30-55) 09/22/25 10:09 RDW 12.5 % (12.1-15.1) 09/22/25 10:09 Plt Count 234 10^3/cmm (157-399) 09/22/25 10:09 MPV 9.6 fL (7.4-10.4) 09/22/25 10:09 Neut % (Auto) 70.4 % 09/22/25 10:09 Lymph % (Auto) 18.6 % 09/22/25 10:09 [place] % (Auto) 5.9 % 09/22/25 10:09 Eos % (Auto) 4.3 % 09/22/25 10:09 Baso % (Auto) 0.7 % 09/22/25 10:09 Neut # (Auto) 4.78 10^3/uL (1.8-7.7) 09/22/25 10:09 Lymph # (Auto) 1.3 10^3/uL (0.8-4.8) 09/22/25 10:09 [place] # (Auto) 0.4 10^3/uL (0.2-0.9) 09/22/25 10:09 Eos # (Auto) 0.3 10^3/uL (0.0-0.8) 09/22/25 10:09 Baso # (Auto) 0.1 10^3/uL (0.0-0.1) 09/22/25 10:09 Nucleated RBC % (auto) 0 % 09/22/25 10:09 Nucleated RBCs # 0.0 /100WBC 09/22/25 10:09 Influenza A (PCR) Negative (Negative) 09/22/25 10:43 Influenza Type B (PCR) Negative (Negative) 09/22/25 10:43 RSV (PCR) Negative (Negative) 09/22/25 10:43 SARS-CoV-2 (PCR) Negative (Negative) 09/22/25 10:43 All radiology interpretation(s) finalized by discharge ED provider radiology interpretation(s): No acute findings on chest x-ray no infiltrates. Discharge Plan Discharge Patient Disposition: Home Clinical Impression: Asthma exacerbation Qualifiers: Asthma severity: unspecified severity Asthma persistence: unspecified Qualified Code(s): J45.901 - Unspecified asthma with (acute) exacerbation Condition: Stable Prescriptions: New ipratropium-albuterol 0.5 mg-3 mg(2.5 mg base)/3 mL solution for nebulization 3 ml inhalation Q4H PRN (Reason: shortness of breath or wheezing) Qty: 90 0RF methylprednisolone [Medrol (Carlitos)] 4 mg tablets,dose pack See Rx Instructions .ROUTE .COMPLEX Qty: 21 0RF Rx Instructions: orally per package directions Discharge Orders: Discharge ED (Routine); Ordered 09/22/25 Ordered By: Ronald Peterson Discharge Diet: Usual diet Discharge Activity: Increase activity as tolerated Patient Instructions: Opioid Safety, Pain Management, Patient Portal & Michelle Instructions Activity Restrictions/Additional Instructions: Thank you for choosing [facility] for your healthcare needs today. It is very important that you follow up as instructed or that you return to the Emergency Department should you have concerns or if your condition changes or worsens in any way. Emergency department visits are focused on emergent conditions, in some cases you may require further evaluation on an outpatient basis. You were seen in the emergency room with complaints of shortness of breath and wheezing. White count was normal chest x-ray did not show any signs of infiltrates or pneumonia. Improved with nebulizer. Will discharge home with albuterol/ipratropium bromide nebulizers steroid taper follow-up your primary care doctor in the next few days (Please note that included in your discharge packet is information concerning opioid safety and pain management. This information is given to all patients were discharged from the ER regardless of their discharge diagnosis or the medicines they usually take or are prescribed.) Print Language: Nepalese Coding Level of Care Code ED Seaming Machine Operator for Margot Burch
[2025-09-22] MEDS: methylPREDNISolone sod succ 125 mg/2 mL INJ IVP (10:42)
--- NOTE | 2025-09-22 10:53 | PC.PHAR ---
Pt had 10 medications on her profile but states she no longer takes any medications at all. Last fill dates were from April of 2024-removed from chart.
[2025-09-22 11:00] VITALS: BP 103/78; PULSE 95; O2SAT 98
[2025-09-22 11:01] VITALS: PULSE 97; RESP 16; O2SAT 93
[2025-09-22 11:04] VITALS: PULSE 93
[2025-09-22 11:36] LABS: Respiratory Syncytial Virus Ce NEGATIVE (Negative); SARS-CoV-2 PCR NEGATIVE (Negative)
[2025-09-22 11:52] VITALS: BP 111/88; PULSE 99; O2SAT 94
== END 2025-09-22 11:53 | disposition home or self-care (01) ==
PROVIDERS: Emergency Provider Family Medicine
DX: J45.901 Unspecified asthma with (acute) exacerbation (principal); Z87.891 Personal history of nicotine dependence
CPT/HCPCS: 36415; 71045; 85025; 87637; 96374; 99284; J2919; J9999